=== PATIENT | female | born 1970 | race Hispanic/Latino ===

== ENCOUNTER 2018-11-21 23:25 | Inpatient (IN) | payer SELFPAY ==
[2018-11-22] MEDS ORDERED: MORPHINE 2 MG/ML SYR ONE (01:04)
[2018-11-22] MEDS ORDERED: ONDANSETRON 4 MG/2 ML VIAL ONE ×3 (01:04→03:06)
[2018-11-22] MEDS ORDERED: NA CHLORIDE 0.9% 1,000 ML ONE ×2 (01:04→03:17)
[2018-11-22] MEDS ORDERED: FAMOTIDINE 20 MG/2 ML VIAL IV ONE (01:04)
[2018-11-22 01:23] LABS: Absolute Lymphocytes (CBC) 1.2 K/uL (0.7-4.9); Absolute Monocytes 0.7 K/uL (0.1-1.3); Basophils % 0.7 % (0-1.3); Eosinophils % 0.5 % (0-4.4); Hematocrit 35.6 % (36.0-45.0); Lymphocytes % 13.6 % (15.3-44.8); MPV 11.8 fL (7.6-11.3); Monocytes % 7.9 % (3.3-12.3); RBC Red Blood Cell Count 3.88 M/uL (3.86-4.86)
[2018-11-22 01:24] LABS: Protime INR 0.9
[2018-11-22] MEDS ORDERED: PROMETHAZINE 25 MG/ML VIAL ONE (01:35)
[2018-11-22 02:01] LABS: ALT/SGPT 17 U/L (12-78); AST/SGOT 9 U/L (15-37); Albumin 2.8 g/dL (3.4-5.0); Alkaline Phosphatase 175 U/L (45-117); BUN Blood Urea Nitrogen 28 mg/dL (7-18); Bicarbonate 24 mmol/L (21-32); Bilirubin Direct < 0.1 mg/dL (0-0.2); Bilirubin Total 0.3 mg/dL (0.2-1.0); Lipase 308 U/L (73-393); Magnesium 2.4 mg/dL (1.8-2.4); Protein, Total 7.2 g/dL (6.4-8.2); Sodium Level 124 mmol/L (136-145); Troponin (Emerg Dept Use Only) 0.02 ng/mL (0.0-0.045)
[2018-11-22 02:02] LABS: Glucose Level 1040 mg/dL (74-106)
[2018-11-22] MEDS ORDERED: INSULIN -REGULAR HUMAN 50 UNIT/0.5 ML ML ONE ×2 (02:51→03:57)
[2018-11-22 03:06] LABS: Arterial Blood Carboxyhemoglob 1.1 % (0-1.5); Blood Gas Oxyhemoglobin 93.8 % (94-97); Blood O2 Saturation 95.9 % (92-98.5)
--- NOTE | 2018-11-22 03:19 | EDPHYS ---
Physician Documentation [facility] Name: Shelley Azul Age: 48 yrs Sex: Female : 1970 Arrival Date: 11/21/2018 Time: 23:26 Bed 19 Private MD: ED Physician Eloy Isabel HPI: 11/22 00:55 This 48 yrs old Female presents to ER via Ambulatory with complaints of cp Nausea/Vomiting. 00:55 The patient presents to the emergency department with nausea, with "dry heaves", cp vomiting, that is intermittent. 00:55 Onset: The symptoms/episode began/occurred 3 day(s) ago. cp 00:55 Associated signs and symptoms: Pertinent positives: abdominal pain, Pertinent cp negatives: constipation, diarrhea, fever, GI bleeding. 00:55 Possible causes: unknown. Severity of symptoms: in the emergency department the cp symptoms are unchanged despite home interventions. [employer]GE[employer]: 11/21 23:43 LMP 11/21/2018 jd3 Historical: - Allergies: 23:42 No Known Allergies; jd3 - Home Meds: 23:42 hydrochlorothiazide 25 mg Oral tab 1 tab once daily [Active]; Metoprolol Tartrate Oral jd3 [Active]; metformin 1,000 mg oral tab 2 times per day [Active]; - PMHx: 23:42 Anemia; Anxiety; Diabetes - NIDDM; Hypertension; jd3 - PSHx: 23:42 None; jd3 - Immunization history:: Adult Immunizations unknown. - Social history:: Smoking status: Patient/guardian denies using tobacco. - Ebola Screening: : Patient negative for fever greater than or equal to 101.5 degrees Fahrenheit, and additional compatible Ebola Virus Disease symptoms. ROS: 11/22 01:00 Constitutional: Positive for poor PO intake, Negative for body aches, chills, fever. cp 01:00 Eyes: Negative for injury, pain, redness, and discharge. cp 01:00 ENT: Negative for drainage from ear(s), ear pain, sore throat, difficulty swallowing, difficulty handling secretions. 01:00 Neck: Negative for pain with movement, pain at rest, stiffness. 01:00 Cardiovascular: Negative for chest pain, edema. 01:00 Respiratory: Negative for cough, shortness of breath, wheezing. 01:00 Abdomen/GI: Positive for abdominal pain, nausea and vomiting, anorexia, Negative for diarrhea, constipation, black/tarry stool, rectal bleeding. 01:00 Back: Negative for pain at rest, pain with movement. 01:00 : Negative for urinary symptoms, vaginal bleeding. 01:00 Skin: Negative for rash. 01:00 Neuro: Negative for altered mental status, dizziness, headache, syncope, weakness. 01:00 All other systems are negative. Exam: 01:05 Constitutional: The patient appears in no acute distress, alert, awake, cp non-diaphoretic, non-toxic, well developed, well nourished, uncomfortable. 01:05 Head/Face: Normocephalic, atraumatic. cp 01:05 Eyes: Periorbital structures: appear normal, Conjunctiva: normal, no exudate, no injection, Sclera: no appreciated abnormality, Lids and lashes: appear normal, bilaterally. 01:05 ENT: External ear(s): are unremarkable, Nose: is normal, Mouth: Lips: moist, Oral mucosa: moist, Posterior pharynx: Airway: no evidence of obstruction, patent, Tonsils: are normal in appearance, Uvula: midline, swelling, is not appreciated, erythema, is not appreciated, exudate, is not appreciated. 01:05 Neck: ROM/movement: is normal, is supple, without pain, no range of motions limitations, no meningismus, no nuchal rigidity. 01:05 Chest/axilla: Inspection: normal, Palpation: is normal, no crepitus, no tenderness. 01:05 Cardiovascular: Rate: tachycardic, Rhythm: regular, Edema: is not appreciated, JVD: is not appreciated. 01:05 Respiratory: the patient does not display signs of respiratory distress, Respirations: normal, no use of accessory muscles, no retractions, no splinting, no tachypnea, labored breathing, is not present, Breath sounds: are clear throughout, no decreased breath sounds, no stridor, no wheezing. 01:05 Abdomen/GI: Inspection: abdomen appears normal, Bowel sounds: active, all quadrants, Palpation: soft, in all quadrants, moderate abdominal tenderness, in the epigastric area, right upper quadrant and left upper quadrant, rebound tenderness, is not appreciated, involuntary guarding, is not appreciated. 01:05 Back: pain, is absent, ROM is normal. 01:05 Skin: cellulitis, is not appreciated, no rash present. 01:05 Neuro: Orientation: to person, place \\T\\ time. Mentation: is normal, Cerebellar function: is grossly normal, Motor: moves all fours, strength is normal, Sensation: is normal. 01:55 ECG was reviewed by the Attending Physician. cp Vital Signs: 11/21 23:42 BP 162 / 94; Pulse 107; Resp 17 S; Temp 98.2(TE); Pulse Ox 98% on R/A; Weight 81.65 kg jd3 (R); Height 5 ft. 2 in. (157.48 cm) (R); Pain 9/10; 11/22 02:00 BP 148 / 80; Pulse 92; Resp 18; Pulse Ox 96% on R/A; Pain 7/10; ed1 04:30 BP 146 / 83; Pulse 98; Resp 18; Temp 97.9(O); Pulse Ox 98% on R/A; Pain 6/10; ed1 05:02 BP 127 / 83; Pulse 84; Resp 22; Temp 97.9(O); Pulse Ox 100% on R/A; Pain 0/10; ed1 04 23:42 Body Mass Index 32.92 (81.65 kg, 157.48 cm) jd3 MDM: 00:33 Patient medically screened. cp 01:00 Differential diagnosis: gastritis, pancreatitis, appendicitis, diverticulitis, viral cp gastroenteritis, gastroenteritis. 03:00 Data reviewed: vital signs, nurses notes, lab test result(s), EKG, radiologic studies, cp plain films, I have discussed the patient's presentation/case with the attending Emergency Department Physician; and as a result, I will admit patient. 03:00 Test interpretation: by ED physician or midlevel provider: ECG, plain radiologic cp studies. Response to treatment: the patient's symptoms have mildly improved after treatment. 11/22 00:45 Order name: Basic Metabolic Panel; Complete Time: 02:04 cp 11/22 02:04 Interpretation: Normal except: NA 124; CL 86; GLUC 1040; BUN 28; CRE 2.21; GFR 24. cp 11/22 00:45 Order name: CBC with Diff; Complete Time: 01:34 cp 11/22 01:34 Interpretation: Normal except: HGB 11.6; HCT 35.6; MCV 91.8; MPV 11.8; VICK% 77.3; LYM% cp 13.6. 04 00:45 Order name: LFT's; Complete Time: 02:04 cp 11/22 00:45 Order name: Magnesium; Complete Time: 02:04 cp 11/22 00:45 Order name: PT-INR; Complete Time: 01:34 cp 11/22 00:45 Order name: Troponin (emerg Dept Use Only); Complete Time: 02:04 cp 11/22 00:45 Order name: Lipase; Complete Time: 02:04 cp 11/22 02:05 Order name: Urine Microscopic Only; Complete Time: 05:42 cp 11/22 02:17 Order name: ABG; Complete Time: 03:14 cp 11/22 03:22 Order name: BMP; Complete Time: 05:42 cp 11/22 05:43 Interpretation: Normal except: NA 129; CL 94; GLUC 912; BUN 27; CRE 1.96; GFR 27; CA cp 8.3. 11/22 03:22 Order name: Ketone, Serum; Complete Time: 05:42 cp 11/22 05:43 Interpretation: Within normal limits. cp 04 04:35 Order name: Urine Dipstick--Ancillary (enter results); Complete Time: 05:42 cm6 11/22 04:35 Order name: Urine --Ancillary (enter results); Complete Time: 05:42 cm6 11/22 04:51 Order name: Basic Metabolic Panel; Complete Time: 01:00 ed1 11/22 00:45 Order name: XRAY Chest (1 view); Complete Time: 01:00 cp 11/22 02:10 Order name: CT Abd/Pelvis - Without Cont: no oral contrast; Complete Time: 01:00 cp 11/22 05:34 Order name: Glucose, Ancillary Testing; Complete Time: 05:42 EDMS 11/22 05:34 Order name: Glucose, Ancillary Testing; Complete Time: 05:42 EDMS 11/22 00:45 Order name: EKG; Complete Time: 00:46 cp 11/22 00:45 Order name: Cardiac monitoring; Complete Time: 00:49 cp 11/22 00:45 Order name: EKG - Nurse/Tech; Complete Time: 03:55 cp 04/05 00:45 Order name: IV Saline Lock; Complete Time: 00:49 cp 04/05 00:45 Order name: Labs collected and sent; Complete Time: 00:49 cp 0405 00:45 Order name: O2 Per Protocol; Complete Time: 00:49 cp 04 00:45 Order name: O2 Sat Monitoring; Complete Time: 00:49 cp 04 00:45 Order name: Accucheck Blood Glucose; Complete Time: 03:55 cp 0405 02:05 Order name: Urine Test (obtain specimen); Complete Time: 04:32 cp 04 02:05 Order name: Urine Dipstick-Ancillary (obtain specimen); Complete Time: 04:32 cp 04 02:05 Order name: Cath; Complete Time: 02:10 cp EC:55 Rate is 91 beats/min. Rhythm is regular. IN interval is normal. QRS interval is normal. cp QT interval is normal. T waves are Inverted in leads I, II, aVL, V6. Interpreted by me. Reviewed by me. Administered Medications: 01:09 Drug: Zofran 4 mg Route: IVP; Site: right antecubital; ed1 01:25 Follow up: Response: No adverse reaction; Nausea unchanged ed1 01:09 Drug: Pepcid 20 mg Route: IVP; Site: right antecubital; ed1 01:57 Follow up: Response: No adverse reaction ed1 01:10 Drug: NS 0.9% 1000 ml Route: IV; Rate: 1 bolus; Site: right antecubital; ed1 03:41 Follow up: IV Status: Completed infusion; IV Intake: 1000ml ed1 01:10 Drug: morphine 2 mg Route: IVP; Site: right antecubital; ed1 01:58 Follow up: Response: No adverse reaction; Pain is decreased ed1 01:26 Drug: Phenergan 25 mg {Note: Placed in IV fluids.} Route: IVP; Site: right antecubital; ed1 01:58 Follow up: Response: No adverse reaction; Nausea is decreased ed1 01:27 Drug: Zofran 4 mg Route: IVP; Site: right antecubital; ed1 01:58 Follow up: Response: No adverse reaction; Nausea is decreased ed1 02:41 Drug: Insulin Regular Human 10 units {Co-Signature: rr5 (Js Mendez RN).} Route: ed1 IVP; Site: left antecubital; 04:32 Follow up: Response: No adverse reaction; Blood sugar is lowered ed1 02:58 Drug: Zofran 4 mg Route: IVP; Site: left antecubital; rr5 04:12 Follow up: Response: No adverse reaction; Nausea unchanged ed1 03:07 Drug: NS 0.9% 1000 ml Route: IV; Rate: 1 bolus; Site: right antecubital; rr5 05:01 Follow up: IV Status: Completed infusion; IV Intake: 1000ml ed1 03:53 Drug: Insulin Regular Human 10 units {Co-Signature: rr5 (Js Mendez RN).} Route: ed1 IVP; Site: right antecubital; 04:27 Drug: Insulin Drip - (Insulin Regular Human 100 units, NS 0.9% 100 ml) {Co-Signature: ed1 rr5 (Js Mendez RN).} Route: IV; Rate: 8 units/hr; Site: right antecubital; 05:22 Follow up: IV Status: Infusion continued upon admission ed1 05:00 Drug: NS 0.9% 1000 ml Route: IV; Rate: 150 ml/hr; Site: right antecubital; ed1 05:22 Follow up: IV Status: Infusion continued upon admission ed1 Point of Care Testing: Blood Glucose: 01:05 Blood Glucose: High (>450 mg/dL); ed1 01:05 Labs sent at 0049 ed1 Ranges: Critical Glucose Levels:Adult <50 mg/dl or >400 mg/dl <40 mg/dl or >180 mg/dl Disposition: 11/22/18 03:18 Hospitalization ordered by Mishel Gallegos for Inpatient Admission. Preliminary diagnosis are Diabetes mellitus due to underlying condition with ketoacidosis, Nausea and vomiting, Acute kidney failure. - Bed requested for Intensive Care Unit. - Status is Inpatient Admission. ed1 - Condition is Stable. - Problem is new. - Symptoms have improved. UTI on Admission? No Addendum: 11/26/2018 11:46 Co-signature as Attending Physician, Eloy Isabel MD. m a2 Signatures: Dispatcher [employer] EDNY Angle Pang RN RN Mimi Tim RN RN ed1 Brody Henderson PA PA cp Garcia, Cindy, RN RN cg Shaheen Griffin, RN RN jd3 Eloy Isabel MD MD sd2 Js Mendez RN RN rr5 Js Mendez RN rr5 Corrections: (The following items were deleted from the chart) 11/22 05:00 03:18 Hospitalization Ordered by Mishel Gallegos MD for Inpatient Admission. Preliminary cg diagnosis is Diabetes mellitus due to underlying condition with ketoacidosis; Nausea and vomiting; Acute kidney failure. Bed requested for Intensive Care Unit. Status is Inpatient Admission. Condition is Stable. Problem is new. Symptoms have improved. UTI on Admission? No. cp 05:43 05:42 Normal except: NA 129; CL 94; GLUC 912; BUN 27; CRE 1.96; GFR 27. cp cp 06:00 05:00 11/22/2018 03:18 Hospitalization Ordered by Mishel Gallegos MD for Inpatient ed1 Admission. Preliminary diagnosis is Diabetes mellitus due to underlying condition with ketoacidosis; Nausea and vomiting; Acute kidney failure. Bed requested for Intensive Care Unit. Status is Inpatient Admission. Condition is Stable. Problem is new. Symptoms have improved. UTI on Admission? No. cg
--- NOTE | 2018-11-22 03:19 | ER ---
Nurse's Notes [facility] Name: Shelley Azul Age: 48 yrs Sex: Female : 1970 Arrival Date: 11/21/2018 Time: 23:26 Bed 19 Private MD: Diagnosis: Diabetes mellitus due to underlying condition with ketoacidosis;Nausea and vomiting;Acute kidney failure Presentation: 11/21 23:39 Presenting complaint: Patient states: "stomach pain and throwing up for 2 days.". jd3 Transition of care: patient was not received from another setting of care. Onset of symptoms was November 21, 2018. Risk Assessment: Do you want to hurt yourself or someone else? Patient reports no desire to harm self or others. Initial Sepsis Screen: Does the patient meet any 2 criteria? No. Patient's initial sepsis screen is negative. Does the patient have a suspected source of infection? No. Patient's initial sepsis screen is negative. Care prior to arrival: None. 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 - Social history:: Smoking status: Patient/guardian denies using tobacco. - Ebola Screening: : Patient negative for fever greater than or equal to 101.5 degrees Fahrenheit, and additional compatible Ebola Virus Disease symptoms. Screenin/05 00:15 Abuse screen: Denies threats or abuse. Denies injuries from another. Nutritional ed1 screening: No deficits noted. Tuberculosis screening: No symptoms or risk factors identified. Fall Risk None identified. Assessment: 00:15 General: Appears uncomfortable, Behavior is uncooperative. Pain: Complains of pain in ed1 abdomen Pain does not radiate. Pain currently is 9 out of 10 on a pain scale. Quality of pain is described as sharp, Pain began 4 hours ago. Is continuous. Neuro: Level of Consciousness is awake, alert, obeys commands, Oriented to person, place, time, situation. Cardiovascular: Denies chest pain, Heart tones S1 S2 present. Respiratory: Airway is patent Respiratory effort is even, unlabored, Respiratory pattern is regular, symmetrical, Breath sounds are clear bilaterally. GI: Abdomen is non-distended, Bowel sounds present X 4 quads. Abd is soft and non tender X 4 quads. Reports nausea, vomiting, Patient currently denies diarrhea. : No signs and/or symptoms were reported regarding the genitourinary system. EENT: Oral mucosa is dry. Derm: Skin is intact, is healthy with good turgor, Skin is dry, Skin is normal, Skin temperature is warm. Musculoskeletal: Circulation, motion, and sensation intact. Range of motion: intact in all extremities. 01:27 GI: Pt is actively vomiting undigested food. ed1 02:00 Reassessment: Patient appears in no apparent distress at this time. No changes from ed1 previously documented assessment. Patient and/or family updated on plan of care and expected duration. Pain level reassessed. Patient is alert, oriented x 3, equal unlabored respirations, skin warm/dry/pink. Patient states symptoms have not improved. 04:30 Reassessment: No changes from previously documented assessment. Patient and/or family ed1 updated on plan of care and expected duration. Pain level reassessed. Patient is alert, oriented x 3, equal unlabored respirations, skin warm/dry/pink. Patient states symptoms have not improved. GI: Reports nausea, vomiting. Vital Signs: 11/21 23:42 BP 162 / 94; Pulse 107; Resp 17 S; Temp 98.2(TE); Pulse Ox 98% on R/A; Weight 81.65 kg jd3 (R); Height 5 ft. 2 in. (157.48 cm) (R); Pain 9/10; 11/22 02:00 BP 148 / 80; Pulse 92; Resp 18; Pulse Ox 96% on R/A; Pain 7/10; ed1 04:30 BP 146 / 83; Pulse 98; Resp 18; Temp 97.9(O); Pulse Ox 98% on R/A; Pain 6/10; ed1 05:02 BP 127 / 83; Pulse 84; Resp 22; Temp 97.9(O); Pulse Ox 100% on R/A; Pain 0/10; ed1 04 23:42 Body Mass Index 32.92 (81.65 kg, 157.48 cm) jd3 ED Course: 11/21 23:26 Patient arrived in ED. am2 23:40 Triage completed. jd3 23:43 Arm band placed on. jd3 04 00:15 Patient has correct armband on for positive identification. Placed in gown. Bed in low ed1 position. Call light in reach. Adult w/ patient. property assessment monitor on. Pulse ox on. NIBP on. 00:17 Mimi Tim, TRAVIS is Primary Nurse. ed1 00:33 Brody Henderson PA is PHCP. cp 00:33 Eloy Isabel MD is Attending Physician. cp 00:49 Inserted saline lock: 20 gauge in right antecubital area, using aseptic technique. ed1 Blood collected. 01:05 X-ray completed. Portable x-ray completed in exam room. Patient tolerated procedure kw well. 01:06 XRAY Chest (1 view) In Process Unspecified. EDMS 02:01 Notified Nurse Practitioner and/or Physician Nail Welter of a critical lab result(s), fc Glucose 1040. 02:41 Inserted saline lock: 22 gauge in left antecubital area, using aseptic technique. ed1 03:16 Mishel Gallegos MD is Hospitalizing Provider. cp 04:31 Awaiting bed assignment. ed1 04:31 CT completed. Patient tolerated procedure well. Patient moved to CT via stretcher. Patient moved back from CT. 04:37 CT Abd/Pelvis - Without Cont: no oral contrast In Process Unspecified. EDMS 05:01 IV discontinued, intact, bleeding controlled, Pressure dressing applied, left a/c. ed1 05:15 Inserted saline lock: 22 gauge in right wrist, using aseptic technique. ed1 05:21 No provider procedures requiring assistance completed. ed1 Administered Medications: 01:09 Drug: Zofran 4 mg Route: IVP; Site: right antecubital; ed1 01:25 Follow up: Response: No adverse reaction; Nausea unchanged ed1 01:09 Drug: Pepcid 20 mg Route: IVP; Site: right antecubital; ed1 01:57 Follow up: Response: No adverse reaction ed1 01:10 Drug: NS 0.9% 1000 ml Route: IV; Rate: 1 bolus; Site: right antecubital; ed1 03:41 Follow up: IV Status: Completed infusion; IV Intake: 1000ml ed1 01:10 Drug: morphine 2 mg Route: IVP; Site: right antecubital; ed1 01:58 Follow up: Response: No adverse reaction; Pain is decreased ed1 01:26 Drug: Phenergan 25 mg {Note: Placed in IV fluids.} Route: IVP; Site: right antecubital; ed1 01:58 Follow up: Response: No adverse reaction; Nausea is decreased ed1 01:27 Drug: Zofran 4 mg Route: IVP; Site: right antecubital; ed1 01:58 Follow up: Response: No adverse reaction; Nausea is decreased ed1 02:41 Drug: Insulin Regular Human 10 units {Co-Signature: rr5 (Js Mendez RN).} Route: ed1 IVP; Site: left antecubital; 04:32 Follow up: Response: No adverse reaction; Blood sugar is lowered ed1 02:58 Drug: Zofran 4 mg Route: IVP; Site: left antecubital; rr5 04:12 Follow up: Response: No adverse reaction; Nausea unchanged ed1 03:07 Drug: NS 0.9% 1000 ml Route: IV; Rate: 1 bolus; Site: right antecubital; rr5 05:01 Follow up: IV Status: Completed infusion; IV Intake: 1000ml ed1 03:53 Drug: Insulin Regular Human 10 units {Co-Signature: rr5 (Js Mendez RN).} Route: ed1 IVP; Site: right antecubital; 04:27 Drug: Insulin Drip - (Insulin Regular Human 100 units, NS 0.9% 100 ml) {Co-Signature: ed1 rr5 (Js Mendez RN).} Route: IV; Rate: 8 units/hr; Site: right antecubital; 05:22 Follow up: IV Status: Infusion continued upon admission ed1 05:00 Drug: NS 0.9% 1000 ml Route: IV; Rate: 150 ml/hr; Site: right antecubital; ed1 05:22 Follow up: IV Status: Infusion continued upon admission ed1 Point of Care Testing: Blood Glucose: 01:05 Blood Glucose: High (>450 mg/dL); ed1 01:05 Labs sent at 0049 ed1 Ranges: Intake: 03:41 IV: 1000ml; Total: 1000ml. ed1 05:01 IV: 1000ml; Total: 2000ml. ed1 Outcome: 03:18 Decision to Hospitalize by Provider. cp 06:00 Admitted to ICU accompanied by nurse, accompanied by tech, family with patient, via ed1 stretcher, room 1, with chart. 06:00 Condition: good 06:00 Discharge instructions given to patient, family, Instructed on the need for admit, Demonstrated understanding of instructions. 06:00 Patient left the ED. ed1 Signatures: Dispatcher [employer] EDMS Ned Rivera Felicia, RN RN Mimi Tim RN RN ed1 Greta Fink Corey, PA PA cp Moreno, Amanda am2 Davies, Jonathon, RN RN jJs Holman RN RN rr5 Js Mendez RN rr5
[2018-11-22] MEDS ORDERED: NA CHLORIDE 0.9% 100 ML IV ONE (03:58)
[2018-11-22 04:07] LABS: BUN Blood Urea Nitrogen 27 mg/dL (7-18); Bicarbonate 24 mmol/L (21-32); Glucose Level 912 mg/dL (74-106); Sodium Level 129 mmol/L (136-145)
[2018-11-22 04:47] LABS: Urine Blood 2+ (NEG); Urine Glucose 2+ (NEG); Urine Protein 2+ (NEG)
[2018-11-22 04:56] LABS: Urine Bacteria <20 /HPF (<20); Urine Culture Reflex Order NOT NEEDED
[2018-11-22] MEDS ORDERED: GLUCAGON 1 MG/VIAL IM PRN ×2 (05:17→17:16)
[2018-11-22] MEDS ORDERED: INSULIN -REGULAR HUMAN 50 UNIT/0.5 ML ML IV SCH (05:17)
[2018-11-22] MEDS: NA CHLORIDE 0.9% 1,000 ML IV SCH ×3 (05:17→16:41)
[2018-11-22] MEDS ORDERED: D50W 25 GM/50 ML SYRINGE IV PRN ×2 (05:17→17:16)
--- NOTE | 2018-11-22 05:23 | P.HP ---
Certification for Inpatient Patient admitted to: Inpatient With expected LOS: >2 Midnights Practitioner: I am a practitioner with admitting privileges, knowledge of patient current condition, hospital course, and medical plan of care. Services: Services provided to patient in accordance with Admission requirements found in Title 42 Section 412.3 of the Code of Federal Regulations Patient History Date of Service: 11/22/18 Reason for admission: hyperosmolar hyperglycemic syndrome History of Present Illness: Mr Azul is a 48 years with history of DM II, HTN, who start with nausea and vomiting about 1 week ago. She has had also diffuse abdominal pain. She denied diarrhea, fever or chills. She has not been taking her diabetic medication in the last week either. She has been more thirsty and had more frequent urination in the last week as well. She came to ED because her vomiting are getting worse. Lab work remarkable for normal WBC, abnormal renal function, and significant hyperglycemia 1040 mg/dl. ABG shows normal OH and bicarbonate level. CT abd/pelvis shows no acute abnormalities. Clinical presentation consistent with hyperosmolar hyperglycemic syndrome. Allergies No Known Allergies Allergy (Verified 08/11/17 04:55) Home medications list reviewed: Yes Home Medications: Metformin HCl [Metformin ER Osmotic] 1,000 mg PO BID 06/14/16 cloNIDine HCl [Clonidine HCl] 0.1 mg PO BEDTIME 08/11/17 hydroCHLOROthiazide [Hydrochlorothiazide] 25 mg PO DAILY 08/11/17 Lisinopril [Prinivil*] 10 mg PO DAILY #30 tab 08/12/17 Metoprolol Tartrate [Lopressor*] 50 mg PO BID #30 tab 08/12/17 - Past Medical/Surgical History Diabetic: Yes -: HTN -: DM2 -: Anemia - Family History Family History: Reviewed- Non-Contributory - Family History Mother -: Hypertension, Diabetes Father -: Kidney disease - Social History Smoking Status: Never smoker Alcohol use: No CD- Drugs: No Caffeine use: No Place of Residence: Home Review of Systems 10-point ROS is otherwise unremarkable Physical Examination - Physical Exam General: Alert, In no apparent distress HEENT: Atraumatic, PERRLA, Mucous membr. moist/pink, EOMI, Sclerae nonicteric Neck: Supple, 2+ carotid pulse no bruit, No LAD, Without JVD or thyroid abnormality Respiratory: Clear to auscultation bilaterally, Normal air movement Cardiovascular: Regular rate/rhythm, Normal S1 S2 Gastrointestinal: Normal bowel sounds, Tenderness (diffuse tenderness to palpation) Musculoskeletal: No tenderness Integumentary: No rashes Neurological: Normal speech, Normal strength at 5/5 x4 extr, Normal tone, Normal affect Lymphatics: No axilla or inguinal lymphadenopathy - Studies Laboratory Data (last 24 hrs) 11/22/18 03:38: Sodium 129 L, Potassium 4.0, BUN 27 H, Creatinine 1.96 H, Glucose 912 H* 11/22/18 00:55: PT 10.7, INR 0.90 11/22/18 00:55: WBC 9.1, Hgb 11.6 L, Hct 35.6 L, Plt Count 326 11/22/18 00:55: Sodium 124 L, Potassium 4.0, BUN 28 H, Creatinine 2.21 H, Glucose 1040 H*, Magnesium 2.4, Total Bilirubin 0.3, AST 9 L, ALT 17, Alkaline Phosphatase 175 H, Lipase 308 Assessment and Plan - Problems (Diagnosis) (1) HTN (hypertension) Current Visit: Yes Status: Acute Qualifiers: Hypertension type: essential hypertension Qualified Code(s): I10 - Essential (primary) hypertension (2) Hyperosmolar syndrome Current Visit: Yes Status: Acute (3) Diabetes mellitus Current Visit: Yes Status: Acute Qualifiers: Diabetes mellitus type: type 2 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 Will continue with IV fluid, insulin drip. Hgb A1c pending. - Advance Directives Does patient have a Living Will: No Does patient have a Durable POA for Healthcare: No - Code Status/Comfort Care Code Status Assessed: Yes Code Status: Full Code
[2018-11-22 06:17] VITALS: BMI 32.8
[2018-11-22] MEDS: PROMETHAZINE 25 MG/ML VIAL IV PRN ×4 (07:07→23:39)
--- NOTE | 2018-11-22 08:13 | RAD REPORT ---
EXAM DESCRIPTION: Phong Single View11/22/2018 1:06 am CLINICAL HISTORY: Abdominal pain COMPARISON: September 2018 FINDINGS: The lungs appear clear of acute infiltrate. The heart is normal size IMPRESSION: No acute abnormalities displayed
[2018-11-22] MEDS ORDERED: HEPARIN 5000 UNIT/ML 1 ML VIAL SQ SCH (09:00)
[2018-11-22 09:09] LABS: Potassium 3.2 mmol/L (3.5-5.1)
[2018-11-22] MEDS ORDERED: SODIUM CHLORIDE 0.9% 10ML INJ IV PRN (09:46)
--- NOTE | 2018-11-22 09:58 | P.PN ---
Subjective Date of Service: 11/22/18 Primary Care Provider: Madyson Ho Chief Complaint: hyperosmolar hyperglycemic syndrome Subjective: Other (Patient reports improvement. No more significant nausea or vomiting. Patient still fatigued.) Physical Examination - Vital Signs Temperature: 97.9 F Blood Pressure: 105/63 Pulse: 99 Respirations: 14 Pulse Ox (%): 98 - Physical Exam General: Alert, In no apparent distress, Oriented x3, Cooperative HEENT: Atraumatic, Other (Dry mucous membranes) Neck: Supple Respiratory: Clear to auscultation bilaterally, Normal air movement Cardiovascular: Normal pulses, Regular rate/rhythm Gastrointestinal: Normal bowel sounds, Soft and benign, Non-distended, No tenderness, No masses, No rebound, No guarding Musculoskeletal: No erythema, No tenderness, No warmth Integumentary: No tenderness/swelling, No erythema, No warmth, No cyanosis Neurological: Normal speech, Normal strength at 5/5 x4 extr, Normal tone, Normal affect - Studies Laboratory Data (last 24 hrs) 11/22/18 03:38: Sodium 129 L, Potassium 4.0, BUN 27 H, Creatinine 1.96 H, Glucose 912 H* 11/22/18 00:55: PT 10.7, INR 0.90 11/22/18 00:55: WBC 9.1, Hgb 11.6 L, Hct 35.6 L, Plt Count 326 11/22/18 00:55: Sodium 124 L, Potassium 4.0, BUN 28 H, Creatinine 2.21 H, Glucose 1040 H*, Magnesium 2.4, Total Bilirubin 0.3, AST 9 L, ALT 17, Alkaline Phosphatase 175 H, Lipase 308 Medications List Reviewed: Yes Assessment & Plan Discharge Plan: Home Plan to discharge in: Greater than 2 days Physician Review Additional Text: Impression: Hyperosmolar nonketotic hyperglycemia with diabetes mellitus type 2 uncontrolled Suspect acute on chronic renal disease, stage 4 secondary to Nausea and vomiting with dehydration with possible kidney injury related to medication versus gastroenteritis Hyponatremia Hypertension Fatty liver Suspect GERD Obesity, BMI 32.8 Uterine fibroids Plan: Hyperosmolar nonketotic hyperglycemia with diabetes mellitus type 2 uncontrolled : Patient remains in ICU. Continue insulin drip. Once blood sugars better controlled then will transition to basal insulin. Will check A1c. Continue to monitor closely. Will monitor lab closely. Will continue to reassess. Suspect acute on chronic renal disease, stage 4 secondary to Nausea and vomiting with dehydration with possible kidney injury related to medication versus gastroenteritis: Patient likely with underlying gastroenteritis. She has been taking hydrochlorothiazide and possible NSAIDs. Will start IV Protonix. Will check renal ultrasound. Continue IV fluids. Patient may have underlying chronic renal disease in relation to her hypertension and diabetes. Will consult Nephrology to further evaluate. Hyponatremia: Likely from falling depletion. Continue aggressive IV fluids. Will monitor electrolytes. Hypertension: Will hold her blood pressure medication at this time. Will provide IV medication as needed. Will discontinue hydrochlorothiazide due to suspected renal injury. Fatty liver: CT scan revealed fatty liver. Will monitor closely. Will educate on fatty liver. Suspect GERD: Will start Protonix. Obesity, BMI 32.8: Will address lifestyle modification education. Uterine fibroids: CT scan revealed uterine fibroids. This can be further evaluated as an outpatient by gynecology. Time Spent Managing Pts Care (In Minutes): 55
[2018-11-22] MEDS: POTASSIUM CL 40 MEQ in NA CHLORIDE 0.9% 500 ML IV SCH ×2 (10:20)
--- NOTE | 2018-11-22 11:02 | RAD REPORT ---
EXAM DESCRIPTION: CT - Abdomen Pelvis Wo Contrast - 11/22/2018 5:11 am CLINICAL HISTORY: 48-year-old female with nausea and vomiting and epigastric pain for two days TECHNIQUE: Axial CT imaging of the abdomen and pelvis was performed. Sagittal and coronal reconstr ucted images were then performed. The CT study is performed according to ALARA (as low as reasonably achievable) or ALARA/IMAGE GENTLY, with automatic adjustment of mA and/or kV according to patient siz e. Performed on: 11/22/2018 at 4:00 AM COMPARISON: None. FINDINGS: Lung bases: The lung bases are clear. Liver: The liver is top normal in size and measures 18 cm in craniocaudal dimension. The liver is sli ghtly heterogeneous in attenuation which can be seen with fatty infiltration. No focal hepatic abnorm alities are appreciated on this unenhanced scan. Spleen: The spleen is normal is size, configuration and attenuation. No focal splenic abnormalities a re appreciated on this unenhanced scan. Gallbladder and bile duct: The gallbladder is surgically absent. There is very mild dilatation of t he common bile duct likely physiologic in nature following a cholecystectomy. Pancreas: The pancreas is grossly normal in size and configuration. Adrenal Glands: The adrenal glands are normal in size and configuration. Kidneys: The kidneys are normal in size and configuration. There is no evidence of hydronephrosis. Th ere is punctate bilateral nonobstructing nephrolithiasis. No focal renal abnormalities are identified . Stomach: The stomach is grossly normal. There is no definite hiatal hernia. Bowel: The bowel gas pattern is non specific and non obstructive. Appendix: The appendix is normal. Free air: There is no evidence of free air. Free fluid: There is no evidence of free fluid. Vasculature: The aorta is normal in caliber and contour. The inferior vena cava is grossly unremarkab le. Lymphadenopathy: No pathologic lymphadenopathy is identified. Bladder: The bladder is well distended and smooth in contour. Reproductive: The uterus is grossly within normal limits. There are a few coarse calcifications withi n the uterus which may reflect calcified uterine fibroids. Bones: No acute osseous abnormalities are identified. Soft tissues: No focal soft tissue abnormalities are identified. IMPRESSION: 1. No evidence of acute intra-abdominal or intrapelvic pathology. There is no evidence o f bowel obstruction 2. Punctate bilateral nonobstructing renal calculi. 3. Borderline hepatomegaly and heterogeneous attenuation of the liver commonly due to fatty infiltrat ion. 4. Remote cholecystectomy. 5. There are a couple of small coarse calcifications in the uterus likely related to calcified uterin e fibroids. Electronically signed by: Aislinn Joseph DO 11/22/2018 4:51 AM CDT Due to temporary technical issues with the PACS/Fluency reporting system, reports are being signed by the in house radiologist as a courtesy to ensure prompt reporting. The interpreting radiologist is f ully responsible for the content of the report.
[2018-11-22] MEDS: ONDANSETRON 4 MG/2 ML VIAL IV PRN ×2 (12:18→18:55)
--- NOTE | 2018-11-22 12:38 | RAD REPORT ---
EXAM DESCRIPTION: US - Renal Ultrasound-Complete - 11/22/2018 12:30 pm CLINICAL HISTORY: . Acute and chronic renal disease COMPARISON: November 22, 2018 CT FINDINGS: The right kidney measures 11 cm with a normal echotexture. The left kidney measures 10 cm with a normal echotexture. Hydronephrosis is not seen. No gross abnormality of the bladder IMPRESSION: Unremarkable renal ultrasound.
[2018-11-22] MEDS: PANTOPRAZOLE 40 MG INJ IVP SCH (12:44)
[2018-11-22] MEDS: HYDRALAZINE HCL 20 MG/ML VIAL IV PRN ×2 (15:14→21:08)
[2018-11-22] MEDS ORDERED: INSULIN -REGULAR HUMAN 100 UNIT in NA CHLORIDE 0.9% 100 ML IV SCH ×2 (16:00→17:30)
[2018-11-22] MEDS: ENOXAPARIN 30 MG/0.3 ML SQ SCH (16:40)
[2018-11-22] MEDS ORDERED: MORPHINE 2 MG/ML SYR IV PRN (16:49)
[2018-11-22] MEDS ORDERED: METOPROLOL TARTRATE 5 MG/5 ML INJ IV STA (17:15)
--- NOTE | 2018-11-22 18:37 | RAD REPORT ---
EXAM DESCRIPTION: RAD - Abdomen 1 View (KUB) - 11/22/2018 6:22 pm CLINICAL HISTORY: Abdominal pain, vomiting COMPARISON: CT study same date FINDINGS: Bowel gas pattern is non-specific. No obstruction, free air or pneumatosis. No suspicious calcifications. No evidence for change from the earlier CT study. No significant bony findings IMPRESSION: No obstruction or free air. No acute finding from earlier imaging.
[2018-11-22] MEDS ORDERED: INSULIN GLARGINE 100 UNITS/ML SQ ONE (19:46)
--- NOTE | 2018-11-22 20:39 | P.CNS ---
Date of Consult: 11/22/18 Reason for Consult: LINDA Requesting Physician: Tramaine Castillo Primary Care Provider: [facility] Chief Complaint: hyperosmolar hyperglycemic syndrome History of Present Illness: Mrs. Azul is a 48 years with history of DM II, HTN that presented to the ER with 1 week of severe, progressive N/V with associated malaise and diffuse abdominal pain. She denied diarrhea, fever or chills. She has not been taking her diabetic medication in the last week either. She has been more thirsty and had more frequent urination in the last week as well. She came to ED because of progressive vomiting. Clinical presentation consistent with hyperosmolar hyperglycemic syndrome. 00:55 This 48 yrs old Female presents to ER via Ambulatory with complaints of cp Nausea/Vomiting. 00:55 The patient presents to the emergency department with nausea, with "dry heaves", cp vomiting, that is intermittent. 00:55 Onset: The symptoms/episode began/occurred 3 day(s) ago Allergies No Known Allergies Allergy (Verified 08/11/17 04:55) Home medications list reviewed: Yes Home Medications: Metformin HCl [Metformin ER Osmotic] 1,000 mg PO BID 06/14/16 hydroCHLOROthiazide [Hydrochlorothiazide] 25 mg PO DAILY 08/11/17 Metoprolol Tartrate [Lopressor*] 50 mg PO BID #30 tab 08/12/17 - Past Medical/Surgical History Diabetic: Yes -: anxiety -: HTN -: DM2 -: Anemia -: C section - Family History Mother Medical History: Hypertension, Diabetes Father Medical History: Kidney disease - Social History Smoking Status: Never smoker Alcohol use: No CD- Drugs: No Caffeine use: No Place of Residence: Home Review of Systems 10-point ROS is otherwise unremarkable General: Weakness, Malaise Gastrointestinal: Nausea, Vomiting, Abdominal Pain Neurological: Weakness Physical Examination Temp Pulse Resp BP Pulse Ox 98.5 F 105 H 26 H 161/63 H 98 11/22/18 16:00 11/22/18 18:00 11/22/18 18:00 11/22/18 18:00 11/22/18 18:00 General: Cooperative, Moderate distress HEENT: Atraumatic, Normocephalic Neck: Supple Respiratory: Clear to auscultation bilaterally, Normal air movement Cardiovascular: No edema, Regular rate/rhythm Gastrointestinal: Non-distended, No guarding, Tenderness Musculoskeletal: No clubbing, No contractures Integumentary: No rashes Neurological: Normal speech Laboratory Data (last 24 hrs) 11/22/18 03:38: Sodium 129 L, Potassium 4.0, BUN 27 H, Creatinine 1.96 H, Glucose 912 H* 11/22/18 00:55: PT 10.7, INR 0.90 11/22/18 00:55: WBC 9.1, Hgb 11.6 L, Hct 35.6 L, Plt Count 326 11/22/18 00:55: Sodium 124 L, Potassium 4.0, BUN 28 H, Creatinine 2.21 H, Glucose 1040 H*, Magnesium 2.4, Total Bilirubin 0.3, AST 9 L, ALT 17, Alkaline Phosphatase 175 H, Lipase 308 Imagings Data: EXAM DESCRIPTION: CT - Abdomen Pelvis Wo Contrast - 11/22/2018 5:11 am CLINICAL HISTORY: 48-year-old female with nausea and vomiting and epigastric pain for two days TECHNIQUE: Axial CT imaging of the abdomen and pelvis was performed. Sagittal and coronal reconstructed images were then performed. The CT study is performed according to ALARA (as low as reasonably achievable) or ALARA/IMAGE GENTLY, with automatic adjustment of mA and/or kV according to patient size. Performed on: 11/22/2018 at 4:00 AM COMPARISON: None. FINDINGS: Lung bases: The lung bases are clear. Liver: The liver is top normal in size and measures 18 cm in craniocaudal dimension. The liver is slightly heterogeneous in attenuation which can be seen with fatty infiltration. No focal hepatic abnormalities are appreciated on this unenhanced scan. Spleen: The spleen is normal is size, configuration and attenuation. No focal splenic abnormalities are appreciated on this unenhanced scan. Gallbladder and bile duct: The gallbladder is surgically absent. There is very mild dilatation of the common bile duct likely physiologic in nature following a cholecystectomy. Pancreas: The pancreas is grossly normal in size and configuration. Adrenal Glands: The adrenal glands are normal in size and configuration. Kidneys: The kidneys are normal in size and configuration. There is no evidence of hydronephrosis. There is punctate bilateral nonobstructing nephrolithiasis. No focal renal abnormalities are identified. Stomach: The stomach is grossly normal. There is no definite hiatal hernia. Bowel: The bowel gas pattern is non specific and non obstructive. Appendix: The appendix is normal. Free air: There is no evidence of free air. Free fluid: There is no evidence of free fluid. Vasculature: The aorta is normal in caliber and contour. The inferior vena cava is grossly unremarkable. Lymphadenopathy: No pathologic lymphadenopathy is identified. Bladder: The bladder is well distended and smooth in contour. Reproductive: The uterus is grossly within normal limits. There are a few coarse calcifications within the uterus which may reflect calcified uterine fibroids. Bones: No acute osseous abnormalities are identified. Soft tissues: No focal soft tissue abnormalities are identified. IMPRESSION: 1. No evidence of acute intra-abdominal or intrapelvic pathology. There is no evidence of bowel obstruction 2. Punctate bilateral nonobstructing renal calculi. 3. Borderline hepatomegaly and heterogeneous attenuation of the liver commonly due to fatty infiltration. 4. Remote cholecystectomy. 5. There are a couple of small coarse calcifications in the uterus likely related to calcified uterine fibroids. EXAM DESCRIPTION: US - Renal Ultrasound-Complete - 11/22/2018 12:30 pm CLINICAL HISTORY: . Acute and chronic renal disease COMPARISON: November 22, 2018 CT FINDINGS: The right kidney measures 11 cm with a normal echotexture. The left kidney measures 10 cm with a normal echotexture. Hydronephrosis is not seen. No gross abnormality of the bladder IMPRESSION: Unremarkable renal ultrasound. Conclusions/Impression: A/ LINDA likely volume depletion. CKD III with proteinuria. Hyponatremia. Hypokalemia. DM II with HHS, uncontrolled. Anemia in chronic illness. Moderate protein malnutrition. P/ Continue current POC and Medications. Aggressive IVF. Replete lytes as ordered. Insulin gtt. No NSAIDS. AM labs. Daily weight. Thank you kindly for the consultation.
[2018-11-22 20:56] LABS: Potassium 3.8 mmol/L (3.5-5.1)
[2018-11-22] MEDS ORDERED: METOCLOPRAMIDE 10 MG/2mL INJ IV SCH (21:00)
[2018-11-22] MEDS ORDERED: POTASSIUM CL SA 10 MEQ TAB PO ONE (23:17)
[2018-11-23 00:09] VITALS: O2SAT 99
[2018-11-23] MEDS: NA CHLORIDE 0.9% 1,000 ML IV SCH ×2 (00:34→08:12)
[2018-11-23] MEDS: HYDRALAZINE HCL 20 MG/ML VIAL IV PRN ×3 (04:37→20:26)
[2018-11-23] MEDS: PROMETHAZINE 25 MG/ML VIAL IV PRN ×2 (05:28→17:16)
[2018-11-23 05:59] LABS: Absolute Lymphocytes (CBC) 1.3 K/uL (0.7-4.9); Absolute Monocytes 0.9 K/uL (0.1-1.3); Absolute Neutrophil 15.9 K/uL (1.8-8.0); Basophils % 0.7 % (0-1.3); Hematocrit 32.2 % (36.0-45.0); Lymphocytes % 7.4 % (15.3-44.8); MPV 11.1 fL (7.6-11.3); Monocytes % 4.7 % (3.3-12.3)
[2018-11-23 06:09] LABS: Magnesium 2.2 mg/dL (1.8-2.4); Phosphorus 2.5 mg/dL (2.5-4.9); Potassium 4.3 mmol/L (3.5-5.1); Uric Acid 7.6 mg/dL (2.6-6.0)
[2018-11-23] MEDS ORDERED: INSULIN -REGULAR HUMAN 50 UNIT/0.5 ML ML IV ONE (06:15)
[2018-11-23] MEDS: METOPROLOL TAR 50 MG TAB PO SCH ×4 (06:22→21:37)
[2018-11-23 06:51] LABS: Blood Morphology Comment NOT SEEN (NOT SEEN); Platelet Estimate ADEQ
[2018-11-23] MEDS ORDERED: D50W 25 GM/50 ML SYRINGE IV PRN ×2 (07:24→15:17)
[2018-11-23] MEDS ORDERED: GLUCAGON 1 MG/VIAL IM PRN ×2 (07:24→15:17)
[2018-11-23] MEDS ORDERED: INSULIN -REGULAR HUMAN 50 UNIT/0.5 ML ML SQ SCH (07:30)
[2018-11-23] MEDS: PANTOPRAZOLE 40 MG INJ IVP SCH (08:09)
[2018-11-23] MEDS: INSULIN -REGULAR HUMAN 50 UNIT/0.5 ML ML SQ SCH ×4 (08:10→20:54)
--- NOTE | 2018-11-23 08:39 | P.PN ---
Subjective Date of Service: 11/23/18 Primary Care Provider: Madyson Ho Chief Complaint: hyperosmolar hyperglycemic syndrome Subjective: Improving (Patient improved since yesterday. Less nausea and vomiting. No abdominal pain.) Physical Examination - Vital Signs Temperature: 98.9 F Blood Pressure: 178/87 Pulse: 101 Respirations: 20 Pulse Ox (%): 97 - Physical Exam General: Alert, In no apparent distress, Oriented x3, Cooperative HEENT: Atraumatic Neck: Supple Respiratory: Clear to auscultation bilaterally, Normal air movement Cardiovascular: Normal pulses, Regular rate/rhythm Gastrointestinal: Normal bowel sounds, Soft and benign, Non-distended, No tenderness, No masses, No rebound, No guarding Musculoskeletal: No erythema, No tenderness, No warmth Integumentary: No tenderness/swelling, No erythema, No warmth, No cyanosis Neurological: Normal speech, Normal strength at 5/5 x4 extr, Normal tone - Studies Medications List Reviewed: Yes Assessment & Plan Discharge Plan: Home Plan to discharge in: 48 Hours Physician Review Additional Text: Impression: Hyperosmolar nonketotic hyperglycemia with diabetes mellitus type 2 uncontrolled Suspect acute on chronic renal disease, stage 4 secondary to Nausea and vomiting with dehydration with possible kidney injury related to medication versus gastroenteritis Hyponatremia Hypertension Fatty liver Suspect GERD Anemia likely of chronic disease Obesity, BMI 32.8 Uterine fibroids Plan: Hyperosmolar nonketotic hyperglycemia with diabetes mellitus type 2 uncontrolled : Patient improved. Patient has been transitioned off insulin drip. Will adjust basal insulin to Lantus 20 units subcu twice daily. Will continue aggressive sliding scale. Will continue monitor closely. A1c greater than 14. Will continue to address lifestyle modification education. Will advance diet as tolerated. If improved will transition to regular floor. Encourage ambulation. Suspect acute on chronic renal disease, stage 4 secondary to Nausea and vomiting with dehydration with possible kidney injury related to medication versus gastroenteritis: Renal function slightly improved. Continue with IV fluids. Adjust IV fluids today. Will monitor closely. Encourage ambulation. Will advance diet as tolerated. Hydrochlorothiazide and metformin have been discontinued due to renal function. Hyponatremia: Likely from volume depletion. Continue IV fluids. Hypertension: Blood pressure elevated. Hydrochlorothiazide discontinued. Patient on metoprolol. Will adjust metoprolol for better control. May need to add additional medication. Will monitor closely.. Fatty liver: CT scan revealed fatty liver. Will monitor closely. Will educate on fatty liver. Suspect GERD: Continue with Protonix. Anemia likely of chronic disease: Will check iron and B12 levels. Will monitor closely. Obesity, BMI 32.8: Will address lifestyle modification education. Uterine fibroids: CT scan revealed uterine fibroids. This can be further evaluated as an outpatient by gynecology. Time Spent Managing Pts Care (In Minutes): 55
[2018-11-23] MEDS ORDERED: INSULIN GLARGINE 100 UNITS/ML SQ SCH (09:00)
[2018-11-23] MEDS: FOLIC ACID 1 MG TABLET PO SCH (09:40)
[2018-11-23] MEDS: NACHLORIDE 0.45% 1,000 ML IV SCH ×2 (09:41→17:36)
[2018-11-23 09:57] LABS: Ferritin 61.5 ng/mL (8-388)
--- NOTE | 2018-11-23 13:43 | P.PN ---
Date of Service: 11/23/18 Vital Signs Temp Pulse Resp BP Pulse Ox 98.9 F 74 15 131/70 97 11/23/18 08:39 11/23/18 12:00 11/23/18 12:00 11/23/18 12:00 11/23/18 12:00 Medications Dextrose (Dextrose 50% Syringe) 12.5 gm IV PRN PRN; Protocol PRN Reason: HYPOGLYCEMIA Stop: 12/22/18 17:17 Enoxaparin Sodium (Lovenox 30 Mg Inj) 30 mg SQ DAILY 5 PM [facility] Stop: 12/22/18 17:01 Last Admin: 11/22/18 16:40 Dose: 30 mg Folic Acid (Folic Acid) 1 mg PO DAILY [facility] Stop: 12/23/18 09:01 Last Admin: 11/23/18 09:40 Dose: 1 mg Glucagon (Glucagen) 1 mg IM 1X PRN; Protocol PRN Reason: HYPOGLYCEMIA Stop: 12/22/18 17:17 Hydralazine HCl (Apresoline) 10 mg IV Q6HP PRN PRN Reason: Titrate to SBP (MUST DEFINE) Stop: 12/22/18 09:46 Last Admin: 11/23/18 04:37 Dose: 10 mg Sodium Chloride (Sodium Chloride 0.45%) 1,000 mls @ 125 mls/hr IV .Q8H [facility] Stop: 12/23/18 09:01 Last Admin: 11/23/18 09:41 Dose: 1,000 mls Insulin Glargine (Lantus) 20 units SQ BID [facility] Stop: 12/23/18 09:01 Last Admin: 11/23/18 08:10 Dose: 20 units Insulin Human Regular (Novolin -R) 0 unit SQ ACHS [facility]; Protocol Stop: 12/23/18 07:31 Last Admin: 11/23/18 11:23 Dose: 12 unit Metoclopramide HCl (Reglan) 10 mg IV 1X [facility] Stop: 12/22/18 21:01 Last Admin: 11/22/18 21:09 Dose: 10 mg Metoprolol Tartrate (Lopressor) 100 mg PO BID [facility] Stop: 12/23/18 09:01 Last Admin: 11/23/18 08:44 Dose: Not Given Morphine Sulfate (Morphine Sulfate) 2 mg IV Q4H PRN PRN Reason: Pain scale 5-7 (Moderate) Stop: 12/22/18 16:50 Last Admin: 11/22/18 17:01 Dose: 2 mg Ondansetron HCl (Zofran) 4 mg IV Q6HP PRN PRN Reason: NAUSEA / VOMITING Stop: 12/22/18 05:18 Last Admin: 11/22/18 18:55 Dose: 4 mg Pantoprazole Sodium (Protonix Tab) 40 mg PO DAILYAC [facility] Stop: 12/24/18 06:31 Promethazine HCl (Phenergan) 12.5 mg IV Q4H PRN PRN Reason: NAUSEA / VOMITING Stop: 12/22/18 05:18 Last Admin: 11/23/18 05:28 Dose: 12.5 mg Sodium Chloride (Normal Saline Flush) 10 ml IV BID [facility] Stop: 12/22/18 09:01 Last Admin: 11/23/18 08:11 Dose: 10 ml Assessment/ Plan: Nephrology. Feeling better. N/V resolved. CPS stable without CP or SOB. No acute events overnight. Vitals, medications, blood work and imaging reviewed in the chart. General: Cooperative, Moderate distress HEENT: Atraumatic, Normocephalic Neck: Supple Respiratory: Clear to auscultation bilaterally, Normal air movement Cardiovascular: No edema, Regular rate/rhythm Gastrointestinal: Non-distended, No guarding, Tenderness Musculoskeletal: No clubbing, No contractures Integumentary: No rashes Neurological: Normal speech Laboratory Data (last 24 hrs) 11/22/18 03:38: Sodium 129 L, Potassium 4.0, BUN 27 H, Creatinine 1.96 H, Glucose 912 H* 11/22/18 00:55: PT 10.7, INR 0.90 11/22/18 00:55: WBC 9.1, Hgb 11.6 L, Hct 35.6 L, Plt Count 326 11/22/18 00:55: Sodium 124 L, Potassium 4.0, BUN 28 H, Creatinine 2.21 H, Glucose 1040 H*, Magnesium 2.4, Total Bilirubin 0.3, AST 9 L, ALT 17, Alkaline Phosphatase 175 H, Lipase 308 Imagings Data: EXAM DESCRIPTION: CT - Abdomen Pelvis Wo Contrast - 11/22/2018 5:11 am CLINICAL HISTORY: 48-year-old female with nausea and vomiting and epigastric pain for two days TECHNIQUE: Axial CT imaging of the abdomen and pelvis was performed. Sagittal and coronal reconstructed images were then performed. The CT study is performed according to ALARA (as low as reasonably achievable) or ALARA/IMAGE GENTLY, with automatic adjustment of mA and/or kV according to patient size. Performed on: 11/22/2018 at 4:00 AM COMPARISON: None. FINDINGS: Lung bases: The lung bases are clear. Liver: The liver is top normal in size and measures 18 cm in craniocaudal dimension. The liver is slightly heterogeneous in attenuation which can be seen with fatty infiltration. No focal hepatic abnormalities are appreciated on this unenhanced scan. Spleen: The spleen is normal is size, configuration and attenuation. No focal splenic abnormalities are appreciated on this unenhanced scan. Gallbladder and bile duct: The gallbladder is surgically absent. There is very mild dilatation of the common bile duct likely physiologic in nature following a cholecystectomy. Pancreas: The pancreas is grossly normal in size and configuration. Adrenal Glands: The adrenal glands are normal in size and configuration. Kidneys: The kidneys are normal in size and configuration. There is no evidence of hydronephrosis. There is punctate bilateral nonobstructing nephrolithiasis. No focal renal abnormalities are identified. Stomach: The stomach is grossly normal. There is no definite hiatal hernia. Bowel: The bowel gas pattern is non specific and non obstructive. Appendix: The appendix is normal. Free air: There is no evidence of free air. Free fluid: There is no evidence of free fluid. Vasculature: The aorta is normal in caliber and contour. The inferior vena cava is grossly unremarkable. Lymphadenopathy: No pathologic lymphadenopathy is identified. Bladder: The bladder is well distended and smooth in contour. Reproductive: The uterus is grossly within normal limits. There are a few coarse calcifications within the uterus which may reflect calcified uterine fibroids. Bones: No acute osseous abnormalities are identified. Soft tissues: No focal soft tissue abnormalities are identified. IMPRESSION: 1. No evidence of acute intra-abdominal or intrapelvic pathology. There is no evidence of bowel obstruction 2. Punctate bilateral nonobstructing renal calculi. 3. Borderline hepatomegaly and heterogeneous attenuation of the liver commonly due to fatty infiltration. 4. Remote cholecystectomy. 5. There are a couple of small coarse calcifications in the uterus likely related to calcified uterine fibroids. EXAM DESCRIPTION: US - Renal Ultrasound-Complete - 11/22/2018 12:30 pm CLINICAL HISTORY: . Acute and chronic renal disease COMPARISON: November 22, 2018 CT FINDINGS: The right kidney measures 11 cm with a normal echotexture. The left kidney measures 10 cm with a normal echotexture. Hydronephrosis is not seen. No gross abnormality of the bladder IMPRESSION: Unremarkable renal ultrasound. Conclusions/Impression: A/ LINDA likely volume depletion. CKD III with proteinuria. Hyponatremia. Hypokalemia. DM II with HHS, uncontrolled. Anemia in chronic illness. Moderate protein malnutrition. P/ Continue current POC and Medications. Aggressive IVF. Replete lytes as ordered. Insulin gtt. No NSAIDS. AM labs. Daily weight.
[2018-11-23] MEDS ORDERED: INSULIN GLARGINE 100 UNITS/ML SQ ONE (15:18)
[2018-11-23] MEDS: HYDRALAZINE HCL 25 MG TABLET PO SCH ×2 (15:32→21:00)
[2018-11-23] MEDS: ENOXAPARIN 30 MG/0.3 ML SQ SCH (16:17)
[2018-11-23] MEDS ORDERED: METOCLOPRAMIDE 10 MG/2mL INJ IV PRN (17:26)
[2018-11-23] MEDS: AMLODIPINE 5 MG TAB PO SCH ×2 (17:45→21:38)
[2018-11-23] MEDS: ONDANSETRON 4 MG/2 ML VIAL IV PRN (19:43)
[2018-11-23] MEDS: INSULIN GLARGINE 100 UNITS/ML SQ SCH (20:54)
[2018-11-24] MEDS: NACHLORIDE 0.45% 1,000 ML IV SCH ×2 (00:23→09:02)
[2018-11-24 05:37] LABS: Absolute Lymphocytes (CBC) 4.7 K/uL (0.7-4.9); Absolute Monocytes 1.1 K/uL (0.1-1.3); Absolute Neutrophil 8.8 K/uL (1.8-8.0); Basophils % 1.4 % (0-1.3); Eosinophils % 1.4 % (0-4.4); Hematocrit 31.4 % (36.0-45.0); Lymphocytes % 31.4 % (15.3-44.8); MPV 11.4 fL (7.6-11.3); Monocytes % 7.1 % (3.3-12.3); RBC Red Blood Cell Count 3.57 M/uL (3.86-4.86)
[2018-11-24 06:07] LABS: Magnesium 2.1 mg/dL (1.8-2.4); Potassium 3.4 mmol/L (3.5-5.1)
[2018-11-24] MEDS ORDERED: PANTOPRAZOLE 40MG TABLET PO SCH (06:30)
[2018-11-24 07:08] LABS: Urine Appearance CLEAR; Urine Bilirubin NEGATIVE (NEG); Urine Blood TRACE (NEG); Urine Color YELLOW; Urine Glucose 3+ (NEG); Urine Protein 3+ (NEG); Urine Urobilinogen 0.2 mg/dL (0.2-1.0)
[2018-11-24 07:39] LABS: Urine Bacteria <20 /HPF (<20); Urine RBC <5 /HPF (NONE SEEN)
[2018-11-24 07:40] LABS: Urine Culture Reflex Order REFLEXED; Urine Mucus 1+ /HPF (NONE SEEN)
[2018-11-24] MEDS: HYDRALAZINE HCL 25 MG TABLET PO SCH (08:09)
[2018-11-24] MEDS: FOLIC ACID 1 MG TABLET PO SCH (08:09)
[2018-11-24] MEDS: AMLODIPINE 5 MG TAB PO SCH (08:09)
[2018-11-24] MEDS: METOPROLOL TAR 50 MG TAB PO SCH (08:09)
[2018-11-24] MEDS: INSULIN GLARGINE 100 UNITS/ML SQ SCH (08:10)
[2018-11-24] MEDS: INSULIN -REGULAR HUMAN 50 UNIT/0.5 ML ML SQ SCH ×2 (08:10→11:48)
[2018-11-24] MEDS ORDERED: POTASSIUM CL SA 10 MEQ TAB PO ONE (09:00)
--- NOTE | 2018-11-24 09:29 | P.DS ---
Admission Date: 11/22/18 Discharge Date: 11/24/18 Primary Care Provider: Madyson Ho Disposition: ROUTINE DISCHARGE Discharge Condition: GOOD Reason for Admission: hyperosmolar hyperglycemic syndrome Consultations: Nephrology-Dr. Talley Procedures: CTAB: IMPRESSION: 1. No evidence of acute intra-abdominal or intrapelvic pathology. There is no evidence of bowel obstruction 2. Punctate bilateral nonobstructing renal calculi. 3. Borderline hepatomegaly and heterogeneous attenuation of the liver commonly due to fatty infiltration. 4. Remote cholecystectomy. 5. There are a couple of small coarse calcifications in the uterus likely related to calcified uterine fibroids. Renal US: COMPARISON: November 22, 2018 CT FINDINGS: The right kidney measures 11 cm with a normal echotexture. The left kidney measures 10 cm with a normal echotexture. Hydronephrosis is not seen. No gross abnormality of the bladder IMPRESSION: Unremarkable renal ultrasound. KUB: FINDINGS: Bowel gas pattern is non-specific. No obstruction, free air or pneumatosis. No suspicious calcifications. No evidence for change from the earlier CT study. No significant bony findings IMPRESSION: No obstruction or free air. No acute finding from earlier imaging. Medical Problem List: Hyperosmolar nonketotic hyperglycemia with diabetes mellitus type 2 uncontrolled Suspect acute on chronic renal disease, stage 4 secondary to Nausea and vomiting with dehydration with possible kidney injury related to medication versus gastroenteritis, now stage III Hyponatremia Hypertension Fatty liver Suspect GERD Anemia likely of chronic disease Obesity, BMI 32.8 Uterine fibroids Nonobstructing renal calculi Brief History of Present Illness: 48-year-old female presented to emergency room with nausea and vomiting. Patient with underlying diabetes and hypertension. Patient found to have severe hyperglycemia. Patient was admitted for treatment. Hospital Course: Patient presented with nausea, vomiting secondary to hyperosmolar nonketotic hyperglycemia. Patient with history of diabetes type 2. Patient required ICU treatment with IV insulin. Blood sugars improved. A1c greater than 14. Dietary lifestyle education and diabetic education addressed in detail. At discharge patient will continue with NPH 25 units subcu twice daily. Recommend to monitor blood sugar at least twice daily. Recommend to maintain blood sugar less than 140 fasting and less than 200 after meals. Further adjustment in her medication may be required. This can be further addressed by her PCP. Patient to establish care locally to continue her care. At discharge metformin discontinued due to her chronic renal disease. Patient also is presented with acute on chronic renal disease, stage IV. This is likely from dehydration and gastroenteritis. Patient received IV fluids. CT showed nonobstructing nephrolithiasis. Medications adjusted during her stay. Hydrochlorothiazide and metformin were discontinued. Nephrology was consulted. At discharge renal function improved to stage III. Patient will need a follow up with nephrology in 1 week to monitor progress. Recommend to recheck lab-BMP in 1 week. Recommend no further use of nonsteroidal anti- inflammatories. Future medications will need to be renally dosed. Patient will no longer continue with hydrochlorothiazide and metformin. Patient with hypertension. Blood pressure was elevated. Patient required multiple medications for better control. At discharge, she will continue with metoprolol 100 mg 1 pill twice daily, hydralazine 25 mg 1 pill 3 times a day, and Norvasc 5 mg 1 pill twice daily. Recommend maintain blood pressures less 150/80. Further adjustment can be done by her PCP. Patient likely with GERD. Patient started on medication. At discharge she will continue with Protonix 40 mg 1 pill once daily. Recommend to follow up with GI as an outpatient to further evaluate. Patient would likely require EGD in the future to further address. Patient with anemia. Iron deficiency noted. At discharge she will continue with iron 325 mg daily. Recommend to recheck lab-CBC in 2-4 weeks to monitor progress. Recommend GI evaluation as an outpatient to further address. Patient found to have fatty liver on CT scan. Education provided. This can be followed up by GI as an outpatient. Patient found to have uterine fibroids on CT scan. Recommend to follow up with GI as an outpatient to further monitor and address. Vital Signs/Physical Exam: Temp Pulse Resp BP Pulse Ox 98.3 F 88 16 161/64 H 100 11/24/18 04:00 11/24/18 08:09 11/24/18 06:00 11/24/18 08:09 11/24/18 06:00 General: Alert, In no apparent distress, Oriented x3, Cooperative HEENT: Atraumatic Neck: Supple Respiratory: Clear to auscultation bilaterally, Normal air movement Cardiovascular: Normal pulses, Regular rate/rhythm Gastrointestinal: Normal bowel sounds, Soft and benign, Non-distended, No ascites, No tenderness, No masses, No rebound, No guarding Musculoskeletal: No erythema, No tenderness, No warmth Integumentary: No tenderness/swelling, No erythema, No warmth, No cyanosis Neurological: Normal speech, Normal strength at 5/5 x4 extr, Normal tone, Normal affect Laboratory Data at Discharge: WBC 14.9 K/uL (4.3-10.9) H D 11/24/18 05:23 Hgb 10.3 g/dL (12.0-15.0) L 11/24/18 05:23 Hct 31.4 % (36.0-45.0) L 11/24/18 05:23 Plt Count 323 K/uL (152-406) 11/24/18 05:23 PT 10.7 SECONDS (9.5-12.5) 11/22/18 00:55 INR 0.90 11/22/18 00:55 Sodium 144 mmol/L (136-145) 11/24/18 05:23 Potassium 3.4 mmol/L (3.5-5.1) L 11/24/18 05:23 BUN 18 mg/dL (7-18) 11/24/18 05:23 Creatinine 1.47 mg/dL (0.55-1.3) H 11/24/18 05:23 Glucose 113 mg/dL (74-106) H 11/24/18 05:23 Uric Acid 7.6 mg/dL (2.6-6.0) H 11/23/18 05:44 Phosphorus 2.5 mg/dL (2.5-4.9) 11/23/18 05:44 Magnesium 2.1 mg/dL (1.8-2.4) 11/24/18 05:23 Total Bilirubin 0.3 mg/dL (0.2-1.0) 11/22/18 00:55 AST 9 U/L (15-37) L 11/22/18 00:55 ALT 17 U/L (12-78) 11/22/18 00:55 Alkaline Phosphatase 175 U/L (45-117) H 11/22/18 00:55 Lipase 308 U/L (73-393) 11/22/18 00:55 Home Medications: Amlodipine [Norvasc*] 5 mg PO BID #60 tab 11/24/18 Ferrous Sulfate [Iron] 325 mg PO DAILY #30 tablet 11/24/18 Hydralazine [Apresoline*] 25 mg PO TID #90 tab 11/24/18 Insulin NPH Human [Novolin N (Humulin N)*] 25 units SQ BID #1 vial 11/24/18 Metoprolol Tartrate 100 mg PO BID #60 tablet 11/24/18 Pantoprazole [Protonix Tab*] 40 mg PO DAILYAC #30 tab 11/24/18 New Medications: Amlodipine [Norvasc*] 5 mg PO BID #60 tab Ferrous Sulfate [Iron] 325 mg PO DAILY #30 tablet Hydralazine [Apresoline*] 25 mg PO TID #90 tab Insulin NPH Human [Novolin N (Humulin N)*] 25 units SQ BID #1 vial Metoprolol Tartrate 100 mg PO BID #60 tablet Pantoprazole [Protonix Tab*] 40 mg PO DAILYAC #30 tab Patient Discharge Instructions: 1. Patient will need to establish care with a PCP to follow up this hospitalization. 2. Patient presented with nausea, vomiting secondary to hyperosmolar nonketotic hyperglycemia. Patient with history of diabetes type 2. Patient required ICU treatment with IV insulin. Blood sugars improved. A1c greater than 14. Dietary lifestyle education and diabetic education will be provided. At discharge patient will continue with NPH 25 units subcu twice daily. Recommend to monitor blood sugar at least twice daily. Recommend to maintain blood sugar less than 140 fasting and less than 200 after meals. Further adjustment in her medication may be required. This can be further addressed by her PCP. Patient to establish care locally to continue her care. At discharge metformin discontinued due to her chronic renal disease. 3. Patient also presented with acute on chronic renal disease, stage IV. This is likely from dehydration and gastroenteritis. Patient received IV fluids. CT showed nonobstructing nephrolithiasis. Medications adjusted during her stay. Hydrochlorothiazide and metformin were discontinued. Nephrology was consulted. At discharge renal function improved to stage III. Patient will need a follow up with nephrology in 1 week to monitor progress. Recommend to recheck lab-BMP in 1 week. Recommend no further use of nonsteroidal anti-inflammatories. Future medications will need to be renally dosed. Patient will no longer continue with hydrochlorothiazide and metformin. 4. Patient with hypertension. Blood pressure was elevated. Patient required multiple medications for better control. At discharge, she will continue with metoprolol 100 mg 1 pill twice daily, hydralazine 25 mg 1 pill 3 times a day, and Norvasc 5 mg 1 pill twice daily. Recommend maintain blood pressures less 150/80. Further adjustment can be done by her PCP. 5. Patient likely with GERD. Patient started on medication. At discharge she will continue with Protonix 40 mg 1 pill once daily. Recommend to follow up with GI as an outpatient to further evaluate. Patient would likely require EGD in the future to further address. 6. Patient with anemia. Iron deficiency noted. At discharge she will continue with iron 325 mg daily. Recommend to recheck lab- CBC in 2-4 weeks to monitor progress. Recommend GI evaluation as an outpatient to further address. 7. Patient found to have fatty liver on CT scan. Education provided. This can be followed up by GI as an outpatient. 8. Patient found to have uterine fibroids on CT scan. Recommend to follow up with GI as an outpatient to further monitor and address. Diet: ADA Activity: Ad lisa Time spent managing pt's care (in minutes): 55
[2018-11-24 12:59] VITALS: BP 123/60; TEMP 98.2
--- NOTE | 2018-11-26 11:23 | EKG ---
Test Date: 2018-11-22 Test Time: 01:48:35 Janitor: AG3 MEASUREMENT RESULTS: Intervals: Rate: 91 MI: 162 QRSD: 88 QT: 386 QTc: 474 [place]: P: 61 MI: 162 QRS: -14 T: 152 INTERPRETIVE STATEMENTS: Normal sinus rhythm Voltage criteria for left ventricular hypertrophy ST & T wave abnormality, consider lateral ischemia Prolonged QT Abnormal ECG Compared to ECG 09/23/2017 21:12:43 Left ventricular hypertrophy now present ST (T wave) deviation now present Prolonged QT interval now present T-wave abnormality no longer present Possible ischemia still present Electronically Signed On 11-22-18 09:51:07 CDT by John Archer
== END 2018-11-24 12:25 | disposition home or self-care (01) | DRG 638 ==
LOC: ER 23:25 → ERHOLD 11-22 04:55 → 3RD-ICU 11-22 05:31
PROVIDERS: ADMIT Internal Medicine; ATTEND Family Medicine
DX: E11.00 Type 2 diabetes mellitus with hyperosmolarity without nonketotic hyperglycemic-hyperosmolar coma (NKHHC) (principal); N17.9 Acute kidney failure, unspecified; E87.1 Hypo-osmolality and hyponatremia; E44.0 Moderate protein-calorie malnutrition; Z79.4 Long term (current) use of insulin; Z79.84 Long term (current) use of oral hypoglycemic drugs; I12.9 Hypertensive chronic kidney disease with stage 1 through stage 4 chronic kidney disease, or unspecified chronic kidney disease; E11.22 Type 2 diabetes mellitus with diabetic chronic kidney disease; E11.65 Type 2 diabetes mellitus with hyperglycemia; E86.0 Dehydration; K76.0 Fatty (change of) liver, not elsewhere classified; K21.9 Gastro-esophageal reflux disease without esophagitis; D63.1 Anemia in chronic kidney disease; E66.9 Obesity, unspecified; Z68.32 Body mass index [BMI] 32.0-32.9, adult; D25.9 Leiomyoma of uterus, unspecified; N20.0 Calculus of kidney; N18.3 Chronic kidney disease, stage 3 (moderate); D50.9 Iron deficiency anemia, unspecified; F41.9 Anxiety disorder, unspecified; R80.9 Proteinuria, unspecified; E87.6 Hypokalemia
CPT/HCPCS: 36415; 71045; 74018; 74176; 76770; 80048; 80076; 81001; 81003; 81015; 81025; 82010; 82043; 82570; 82607; 82728; 82805; 82947; 82962; 83540; 83690; 83735; 84100; 84466; 84484; 84550; 85025; 85610; 87077; 87086; 87088; 87186; 93005; 99285; C9113; J0360; J1644; J1650; J2270; J2405; J2550; J2765; J7030

== ENCOUNTER 2019-07-15 01:13 | Inpatient (IN) | payer SELFPAY ==
--- OUTSIDE RECORDS SUMMARY | 2019-07-15 01:15 | XMS REPORT ---
:1970 [facility] Address [address] [place] [address] Dr. Palacios [address] [place] [id number] Care Team Providers Name Role Phone Unavailable Unavailable Unavailable Problems This patient has no known problems. Allergies, Adverse Reactions, Alerts This patient has no known allergies or adverse reactions. Medications This patient has no known medications.
[2019-07-15 01:42] LABS: Absolute Lymphocytes (CBC) 1.7 K/uL (0.7-4.9); Basophils % 0.5 % (0-1.3); Hematocrit 27.4 % (36.0-45.0); MPV 10.5 fL (7.6-11.3); RBC Red Blood Cell Count 3.19 M/uL (3.86-4.86)
[2019-07-15 01:45] LABS: Protime INR 0.78
[2019-07-15 01:56] LABS: ALT/SGPT 18 U/L (12-78); AST/SGOT 12 U/L (15-37); Albumin 2.9 g/dL (3.4-5.0); Alkaline Phosphatase 89 U/L (45-117); BUN Blood Urea Nitrogen 34 mg/dL (7-18); Bicarbonate 21 mmol/L (21-32); Bilirubin Direct < 0.1 mg/dL (0-0.2); Bilirubin Total 0.1 mg/dL (0.2-1.0); Glucose Level 217 mg/dL (74-106); Magnesium 1.7 mg/dL (1.8-2.4); NT PRO-BNP 2470 pg/mL (<125); Potassium 3.9 mmol/L (3.5-5.1); Protein, Total 6.7 g/dL (6.4-8.2); Sodium Level 139 mmol/L (136-145); Troponin (Emerg Dept Use Only) < 0.02 ng/mL (0.0-0.045)
[2019-07-15] MEDS ORDERED: MORPHINE 4 MG/ML SYR ONE (02:27)
[2019-07-15] MEDS ORDERED: ONDANSETRON 4 MG/2 ML VIAL ONE ×2 (02:27→08:01)
--- NOTE | 2019-07-15 02:27 | ER ---
Nurse's Notes [facility] Name: Shelley Azul Age: 48 yrs Sex: Female : 1970 Arrival Date: 07/15/2019 Time: 01:15 Bed 8 Private MD: Diagnosis: Hypertensive heart and chronic kidney disease;Chest pain, unspecified Presentation: 07/15 01:06 Presenting complaint: Patient states: that she was woken up by upper chest and throat fc pain. Also has cough and congestion. Transition of care: patient was not received from another setting of care. Onset of symptoms was July 15, 2019 at 00:00. Risk Assessment: Do you want to hurt yourself or someone else? Patient reports no desire to harm self or others. Initial Sepsis Screen: Does the patient meet any 2 criteria? HR > 90 bpm. Yes Does the patient have a suspected source of infection? No. Patient's initial sepsis screen is negative. Care prior to arrival: Glucose check: 186. 01:06 Method Of Arrival: EMS: [facility] 01:06 Acuity: UZMA 3 fc Historical: - Allergies: 01:20 No Known Allergies; fc - Home Meds: 01:20 clonidine HCl 0.1 mg Oral tab 1 tab 2 times per day [Active]; hydrochlorothiazide 25 mg fc Oral tab 1 tab once daily [Active]; metformin 1,000 mg Oral tab 2 times per day [Active]; Metoprolol Tartrate Oral [Active]; - PMHx: 01:20 Anemia; Anxiety; Diabetes - NIDDM; Hypertension; fc - PSHx: 01:20 None; fc - Immunization history:: Last tetanus immunization: unknown, Flu vaccine is not up to date. - Social history:: Smoking status: Patient/guardian denies using tobacco, Patient/guardian denies using alcohol, street drugs. - Ebola Screening: : Patient negative for fever greater than or equal to 101.5 degrees Fahrenheit, and additional compatible Ebola Virus Disease symptoms Patient denies exposure to infectious person Patient denies travel to an Ebola-affected area in the 21 days before illness onset. Screenin:06 Abuse screen: Denies threats or abuse. Nutritional screening: No deficits noted. fc Tuberculosis screening: No symptoms or risk factors identified. Fall Risk None identified. Assessment: 01:24 General: Appears uncomfortable, Behavior is anxious, crying. Pain: Complains of pain in ea upper chest and sore throat. Neuro: Level of Consciousness is awake, alert, obeys commands, Oriented to person, place, time, situation. Cardiovascular: Patient's skin is warm and dry. Respiratory: Airway is patent Respiratory effort is even, unlabored, Respiratory pattern is regular, symmetrical. Derm: Skin is pink, warm \T\ dry. 02:30 Reassessment: Patient and/or family updated on plan of care and expected duration. Pain ea level reassessed. Patient is alert, oriented x 3, equal unlabored respirations, skin warm/dry/pink. 03:30 Reassessment: Patient and/or family updated on plan of care and expected duration. Pain ea level reassessed. Patient is alert, oriented x 3, equal unlabored respirations, skin warm/dry/pink. 04:24 Reassessment: Patient and/or family updated on plan of care and expected duration. Pain ea level reassessed. Patient is alert, oriented x 3, equal unlabored respirations, skin warm/dry/pink. 07:05 Reassessment: Pt resting in bed with eyes closed, respirations even and unlabored, skin aa5 is pink/warm/dry. . 07:07 Reassessment: Unsuccessful attempt to call report to admitting nurse. . aa5 07:20 Reassessment: Pt to VQ scan via wheelchair. . aa5 07:45 Reassessment: Patient is alert, oriented x 3, equal unlabored respirations, skin aa5 warm/dry/pink. Pt back from VQ scan via wheelchair. . 08:03 Reassessment: Patient is alert, oriented x 3, equal unlabored respirations, skin aa5 warm/dry/pink. Pt c/o nausea (see [facility]uki (Vozero/Gengibre) for Zofran administration) . Vital Signs: 01:06 BP 198 / 111; Pulse 127; Resp 20; Temp 98.9(O); Pulse Ox 97% on R/A; Weight 81.65 kg fc (R); Height 5 ft. 4 in. (162.56 cm) (R); Pain 8/10; 01:25 BP 179 / 91; Pulse 103; Resp 20; Pulse Ox 97% ; ea 02:30 BP 181 / 85; Pulse 87; Resp 18; Pulse Ox 95% on R/A; ea 03:30 BP 159 / 80; Pulse 80; Resp 18; Pulse Ox 95% on R/A; ea 04:00 BP 155 / 66; Pulse 78; Resp 18; Pulse Ox 95% on R/A; ea 05:00 BP 162 / 91; Pulse 80; Resp 18; Pulse Ox 95% on R/A; ea 06:00 BP 114 / 57; Pulse 81; Resp 18; Pulse Ox 95% on R/A; ea 07:10 BP 110 / 57; Pulse 83; Resp 16 S; Temp 98.8(O); Pulse Ox 100% on R/A; Pain 0/10; aa5 01:06 Body Mass Index 30.90 (81.65 kg, 162.56 cm) ED Course: 01:06 Arm band placed on Patient placed in an exam room, on a stretcher. fc 01:06 Patient has correct armband on for positive identification. Placed in gown. Bed in low fc position. Call light in reach. Side rails up X2. groundwater monitoring technician on. Pulse ox on. NIBP on. 01:06 No provider procedures requiring assistance completed. fc 01:15 Patient arrived in ED. tw4 01:16 Triage completed. fc 01:16 Alvin Church MD is Attending Physician. tw4 01:24 Ami Keller, TRAVIS is Primary Nurse. ea 01:34 Radiology exam delayed due to lab results not completed at this time. (BUN/Creatinine). vm2 01:47 Notified ED physician of a critical lab result(s). 892 d-dimer. ak1 02:06 XRAY Chest (1 view) In Process Unspecified. EDMS 02:24 Althea Newman MD is Hospitalizing Provider. tw4 04:24 Patient admitted, IV remains in place. ea 07:50 Note: VQ SCAN COMPLETE. PT TOLERATED SCAN WELL, NO CHANGE. RETURNED TO THE ED. NURSE rolando2 NOTIFIED. RT JAMIL(N), DINING SERVICE INSPECTOR. Administered Medications: 02:36 Drug: Zofran 4 mg Route: IVP; Site: right antecubital; ea 06:17 Follow up: Response: No adverse reaction ea 02:37 Drug: Lovenox 1 mg/kg Route: Sub-Q; Site: right lower abdomen; ea 03:00 Follow up: Response: No adverse reaction ea 02:37 Drug: morphine 4 mg Route: IVP; Site: right antecubital; ea 03:00 Follow up: Response: No adverse reaction ea Outcome: 02:26 Decision to Hospitalize by Provider. tw4 03:00 Admitted to ER Hold. Please see [facility] for further documentation. ea 03:00 Instructed on the need for admit. 04:23 Condition: stable ea 08:05 Admitted to Tele accompanied by tech, family with patient, via stretcher, with chart, aa5 Report called to TRAVIS Smith 08:05 Condition: stable 08:06 Patient left the ED. aa5 Signatures: Dispatcher [employer] EDMS Jericho Phipps Felicia, RN RN Estela Mills, RN RN aaSandi Jc RN RN Priya Terrell Elena RN RN Alvin Guillen MD MD tw4
--- NOTE | 2019-07-15 02:27 | EDPHYS ---
Physician Documentation [facility] Name: Shelley Azul Age: 48 yrs Sex: Female : 1970 Arrival Date: 07/15/2019 Time: 01:15 Bed 8 Private MD: ED Physician Alvin Church HPI: 07/15 01:31 This 48 yrs old Female presents to ER via EMS with complaints of Chest Pain, tw4 Shortness Of Breath. 01:31 The patient or guardian reports chest pain that is located primarily in the anterior tw4 chest wall. 01:36 Onset: 1 hour(s) ago. The pain does not radiate. Associated signs and symptoms: The tw4 patient has no apparent associated signs or symptoms. The chest pain is described as a heaviness. Duration: The patient or guardian reports a single episode, that is still ongoing. Modifying factors: The symptoms are alleviated by nothing. the symptoms are aggravated by nothing. Severity of pain: At its worst the pain was moderate in the emergency department the pain is unchanged. The patient has experienced similar episodes in the past, a few times. Historical: - Allergies: 01:20 No Known Allergies; fc - Home Meds: 01:20 clonidine HCl 0.1 mg Oral tab 1 tab 2 times per day [Active]; hydrochlorothiazide 25 mg fc Oral tab 1 tab once daily [Active]; metformin 1,000 mg Oral tab 2 times per day [Active]; Metoprolol Tartrate Oral [Active]; - PMHx: 01:20 Anemia; Anxiety; Diabetes - NIDDM; Hypertension; fc - PSHx: 01:20 None; fc - Immunization history:: Last tetanus immunization: unknown, Flu vaccine is not up to date. - Social history:: Smoking status: Patient/guardian denies using tobacco, Patient/guardian denies using alcohol, street drugs. - Ebola Screening: : Patient negative for fever greater than or equal to 101.5 degrees Fahrenheit, and additional compatible Ebola Virus Disease symptoms Patient denies exposure to infectious person Patient denies travel to an Ebola-affected area in the 21 days before illness onset. ROS: 01:36 Constitutional: Negative for fever, chills, and weight loss, Eyes: Negative for injury, tw4 pain, redness, and discharge, Respiratory: Negative for shortness of breath, cough, wheezing, and pleuritic chest pain, Abdomen/GI: Negative for abdominal pain, nausea, vomiting, diarrhea, and constipation, Back: Negative for injury and pain, MS/Extremity: Negative for injury and deformity, Skin: Negative for injury, rash, and discoloration, Neuro: Negative for headache, weakness, numbness, tingling, and seizure. 01:36 Cardiovascular: Positive for chest pain, Negative for edema, orthopnea, palpitations. Exam: 01:36 Head/Face: Normocephalic, atraumatic. tw4 01:36 Chest/axilla: Normal chest wall appearance and motion. Nontender with no deformity. No lesions are appreciated. Cardiovascular: Regular rate and rhythm with a normal S1 and S2. No gallops, murmurs, or rubs. Normal PMI, no JVD. No pulse deficits. Respiratory: Lungs have equal breath sounds bilaterally, clear to auscultation and percussion. No rales, rhonchi or wheezes noted. No increased work of breathing, no retractions or nasal flaring. Abdomen/GI: Soft, non-tender, with normal bowel sounds. No distension or tympany. No guarding or rebound. No evidence of tenderness throughout. Back: No spinal tenderness. No costovertebral tenderness. Full range of motion. MS/ Extremity: Pulses equal, no cyanosis. Neurovascular intact. Full, normal range of motion. Neuro: Awake and alert, GCS 15, oriented to person, place, time, and situation. Cranial nerves II-XII grossly intact. Motor strength 5/5 in all extremities. Sensory grossly intact. Cerebellar exam normal. Normal gait. 01:36 Constitutional: The patient appears in obvious distress, moderately distressed. Vital Signs: 01:06 BP 198 / 111; Pulse 127; Resp 20; Temp 98.9(O); Pulse Ox 97% on R/A; Weight 81.65 kg fc (R); Height 5 ft. 4 in. (162.56 cm) (R); Pain 8/10; 01:25 BP 179 / 91; Pulse 103; Resp 20; Pulse Ox 97% ; ea 02:30 BP 181 / 85; Pulse 87; Resp 18; Pulse Ox 95% on R/A; ea 03:30 BP 159 / 80; Pulse 80; Resp 18; Pulse Ox 95% on R/A; ea 04:00 BP 155 / 66; Pulse 78; Resp 18; Pulse Ox 95% on R/A; ea 05:00 BP 162 / 91; Pulse 80; Resp 18; Pulse Ox 95% on R/A; ea 06:00 BP 114 / 57; Pulse 81; Resp 18; Pulse Ox 95% on R/A; ea 07:10 BP 110 / 57; Pulse 83; Resp 16 S; Temp 98.8(O); Pulse Ox 100% on R/A; Pain 0/10; aa5 01:06 Body Mass Index 30.90 (81.65 kg, 162.56 cm) fc MDM: 01:17 Patient medically screened. tw 02:29 HEART Score: History: Moderately Suspicious (1), ECG: Non specific repolarization tw4 disturbance / LBTB / PM (1), Age: > 45 and < 65 years (1), Risk Factors: 1 or 2 risk factors (1), Troponin: < or = 1 x Normal Limit (0). Data reviewed: vital signs, nurses notes. Data interpreted: campus monitor: rhythm is normal sinus rhythm, Pulse oximetry: is not applicable for this patient encounter. Test interpretation: by ED physician or midlevel provider: ECG, plain radiologic studies. Counseling: I had a detailed discussion with the patient and/or guardian regarding: the historical points, exam findings, and any diagnostic results supporting the discharge/admit diagnosis, lab results, radiology results. Physician consultation: Althea Newman MD regarding admission, to the telemetry unit. and will see patient in ED. 07/15 01:18 Order name: Basic Metabolic Panel; Complete Time: 02:12 07/15 02:12 Interpretation: Normal except: CL 111; BUN 34; CRE 1.76; GFR 31; GLUC 217. 07/15 01:18 Order name: CBC with Diff; Complete Time: 02:12 07/15 02:12 Interpretation: Normal except: RBC 3.19; HGB 9.3; HCT 27.4. 07/15 01:18 Order name: LFT's; Complete Time: 02:12 07/15 02:12 Interpretation: Normal except: AST 12; BILIT 0.1; ALB 2.9; GLOB 3.8; A/G 0.8. 07/15 01:18 Order name: Magnesium; Complete Time: 02:12 tw4 07/15 02:13 Interpretation: Normal except: MG 1.7. tw4 07/15 01:18 Order name: NT PRO-BNP; Complete Time: 02:12 tw 07/15 02:13 Interpretation: Normal except: NT PRO-BNP 2470. [facility] 07/15 01:18 Order name: PT-INR; Complete Time: 02:12 [facility] 07/15 02:16 Interpretation: Normal except: PT 9.3. tw 07/15 01:18 Order name: Troponin (emerg Dept Use Only); Complete Time: 02:12 [facility] 07/15 02:18 Interpretation: Normal except: TROPED < 0.02. [facility] 07/15 01:18 Order name: D-Dimer; Complete Time: 02:12 [facility] 07/15 02:18 Interpretation: Normal except: D-DIMER 892. [facility] 07/15 03:40 Order name: Ferritin [facility] 07/15 03:40 Order name: Transferrin Sat/Iron Binding [facility] 07/15 03:40 Order name: Comprehensive Metabolic Panel [facility] 07/15 03:40 Order name: Comprehensive Metabolic Panel [facility] 07/15 03:40 Order name: Lipid Profile [facility] 07/15 03:40 Order name: Lipid Profile [facility] 07/15 01:18 Order name: XRAY Chest (1 view) [facility] 07/15 01:18 Order name: EKG; Complete Time: 01:19 tw4 07/15 01:18 Order name: Cardiac monitoring; Complete Time: 01:20 [facility] 07/15 01:18 Order name: EKG - Nurse/Tech; Complete Time: 01:20 tw 07/15 01:18 Order name: IV Saline Lock; Complete Time: 01:20 tw 07/15 03:40 Order name: Troponin I [facility] 07/15 03:40 Order name: Troponin I [facility] 07/15 03:40 Order name: Troponin I [facility] 07/15 03:41 Order name: CONS Pharmacy Consult [facility] 07/15 03:41 Order name: CONS Pharmacy Consult [facility] 07/15 03:41 Order name: Consistent Carb (ADA) [address] EDDE 07/15 03:43 Order name: Vent Perfusion VQ Scan [facility] 07/15 01:18 Order name: Labs collected and sent; Complete Time: 01:39 tw4 07/15 01:18 Order name: O2 Per Protocol; Complete Time: :20 tw4 07/15 01:18 Order name: O2 Sat Monitoring; Complete Time: tw4 Administered Medications: 02:36 Drug: Zofran 4 mg Route: IVP; Site: right antecubital; ea 06:17 Follow up: Response: No adverse reaction ea 02:37 Drug: Lovenox 1 mg/kg Route: Sub-Q; Site: right lower abdomen; ea 03:00 Follow up: Response: No adverse reaction ea 02:37 Drug: morphine 4 mg Route: IVP; Site: right antecubital; ea 03:00 Follow up: Response: No adverse reaction ea Disposition: 07/15/19 02:26 Hospitalization ordered by Althea Newman for Inpatient Admission. Preliminary diagnosis are Hypertensive heart and chronic kidney disease, Chest pain, unspecified. - Bed requested for Telemetry/MedSurg (Inpatient). - Status is Inpatient Admission. aa5 - Condition is Stable. - Problem is new. - Symptoms have improved. UTI on Admission? No Signatures: Dispatcher [employer] EDDE Angle Pang RN TRAVIS Estela Enrique RN RN aa5 Ami Keller RN RN Raf Koehler RN RN ja1 Alvin Church MD MD tw4 Tisha Trejo mw2 Corrections: (The following items were deleted from the chart) 01:20 01:19 Chest Single View+RAD.RAD.BRZ ordered. EDDE EDMS 02:45 01:32 Chest For PE Angio+CT.RAD.BRZ ordered. [facility] EDDE 06:19 02:26 Hospitalization Ordered by Althea Newman MD for Inpatient Admission. Preliminary mw2 diagnosis is Hypertensive heart and chronic kidney disease; Chest pain, unspecified. Bed requested for Telemetry/MedSurg (Inpatient). Status is Inpatient Admission. Condition is Stable. Problem is new. Symptoms have improved. UTI on Admission? No. tw4 06:25 06:19 07/15/2019 02:26 Hospitalization Ordered by Althea Newman MD for Inpatient ja1 Admission. Preliminary diagnosis is Hypertensive heart and chronic kidney disease; Chest pain, unspecified. Bed requested for [facility] ER HOLD. Status is Inpatient Admission. Condition is Stable. Problem is new. Symptoms have improved. UTI on Admission? No. mw2 08:06 06:25 07/15/2019 02:26 Hospitalization Ordered by Althea Newman MD for Inpatient aa5 Admission. Preliminary diagnosis is Hypertensive heart and chronic kidney disease; Chest pain, unspecified. Bed requested for Telemetry/MedSurg (Inpatient). Status is Inpatient Admission. Condition is Stable. Problem is new. Symptoms have improved. UTI on Admission? No. ja1
[2019-07-15] MEDS ORDERED: ENOXAPARIN 80 MG/0.8 ML SQ ONE (02:28)
[2019-07-15] MEDS ORDERED: GLUCAGON 1 MG/VIAL IM PRN (03:26)
[2019-07-15] MEDS ORDERED: D50W 25 GM/50 ML SYRINGE/VIAL IV PRN (03:26)
[2019-07-15] MEDS ORDERED: MORPHINE 2 MG/ML SYR IV PRN (03:26)
[2019-07-15] MEDS ORDERED: ONDANSETRON 4 MG/2 ML VIAL IV PRN (03:26)
[2019-07-15] MEDS ORDERED: ALBUTEROL 2.5 MG/3 ML NEB SOL NEB PRN (03:26)
[2019-07-15] MEDS ORDERED: HYDRALAZINE HCL 20 MG/ML VIAL IV ONE (03:26)
[2019-07-15] MEDS: FUROSEMIDE 40 MG/4 ML VIAL IV SCH ×3 (03:35→16:26)
[2019-07-15] MEDS: NITROGLYCERIN 0.2 MG/HR (5 MG) PATCH TD SCH ×2 (03:36→10:52)
[2019-07-15] MEDS ORDERED: FUROSEMIDE 40 MG/4 ML VIAL ONE (04:40)
--- NOTE | 2019-07-15 05:28 | EKG ---
Test Date: 2019-07-15 Test Time: 01:09:10 [employer] [employer]: MY MEASUREMENT RESULTS: Intervals: Rate: 127 IN: 156 QRSD: 80 QT: 314 QTc: 456 [place]: P: 73 IN: 156 QRS: 52 T: 65 INTERPRETIVE STATEMENTS: Sinus tachycardia Otherwise normal ECG Compared to ECG 11/22/2018 01:48:35 Sinus rhythm no longer present Left ventricular hypertrophy no longer present ST (T wave) deviation no longer present Prolonged QT interval no longer present Electronically Signed On 07-15-19 05:27:20 [employer] by John Archer
[2019-07-15] MEDS ORDERED: HYDRALAZINE HCL 20 MG/ML VIAL ONE (05:29)
[2019-07-15 05:56] LABS: Troponin I 0.12 ng/mL (0.0-0.045)
[2019-07-15] MEDS ORDERED: INSULIN -REGULAR HUMAN 50 UNIT/0.5 ML ML SQ SCH (07:30)
--- NOTE | 2019-07-15 07:35 | HP ---
Date of Admission: 07/15/2019 Presenting Complaint: Substernal chest pain. History Of Present Illness: Ms. Shelley Azul is a 48-year-old female with history of hypertension; diabetes mellitus type 2 since 21 years, on oral hypoglycemic; previous use of insulin in the past; h istory of chronic kidney disease, stage 3-4, who presented because of soft sternal chest pain radiati ng to the throat area radiating to the neck, which woke her up from sleep in night. Patient says vasu guillory was more pressure like. She has similar pain about 2 days which was about 7 which sp ontaneously resolved. She started having intermittent symptoms when she went to sleep, sy mptoms appear to have continuous. She denies any nausea or vomiting. She denies any worsening short ness of breath and feels chest pressure, appear to worsen with deep breathing. In the ED, initial se t of cardiac enzymes were negative. Patient states she has similar pain episode 1-1/2 years ago. No intervention was done for that. She states she has never had stress test done. She reportedly has not had any change in the blood pressure medications. However, she states she is adherent with her b lood pressure meds. She states her occasional blood pressure readings at home range in the 120s to 1 30s. Review of record shows patient had a stress test done 3 years ago that was unremarkable. She h ad a CTA done for similar symptoms 1 year ago that shows no evidence of pulmonary embolism, but suspi cion for pulmonary edema. She denies any body swelling now. Patient is a poor historian. Ex-lorraine melgoza who is present at the bedside is helping patient with history. However, there seems to be conflict ing report from patient and ex-. Past Medical History: Significant for hypertension, hyperlipidemia, diabetes mellitus type 2, chroni c kidney disease stage 3-4, history of anemia of chronic disease, history of GERD. Family History: Significant for diabetes and history of coronary artery disease. Social History: No history of alcohol or illicit drug use. History of 1 month use of tobacco intake 12 years ago. Allergies: NO KNOWN DRUG ALLERGIES. Home Medications: Protonix, metoprolol, NPH insulin, ferrous sulphate, Norvasc, and hydralazine. Review of Systems: All systems reviewed x14 were negative except as mentioned above. Physical Examination: Vital Signs: On presentation, blood pressure was 220/114. Morphine was given. Blood pressure now c urrently 180/85 with respiratory rate of 22, pulse of 83, O2 sat 95% on room air. General: Average built, middle-aged female, appear older than stated age with intermittent crying. HEENT: Head atraumatic, normocephalic. Pupils equal and reactive to light. Extraocular motor movem ents intact. Moist oral mucosa. Neck: No JVD. No carotid bruits. Cardiovascular: S1, S2. Mild soft sternal area tenderness. Respiratory: Good air entry except bibasilar crepitations bilaterally. GI: Abdomen full. Mild epigastric area tenderness. Bowel sounds positive. No suprapubic fullness. No ascites by shifting dullness. Extremities: Trace pedal edema bilaterally. No calf tenderness. Neuro: Patient is alert, oriented, conversant. No neurological focal motor deficit. Laboratory Data: WBC 8.9, hemoglobin 9.3, platelet 304. INR of 0.7. D-dimer 892. Sodium 139, pota ssium 3.9, creatinine 1.76, baseline of 1.5 to 2.2 since this year. Total bili of 0.7, magnesium of 1.7, troponin less then 0.02. BNP of 2470, albumin of 2.9. Chest x-ray shows mild pulmonary congest violet changes. Impression: 1.Atypical chest pain. 2.Hypertensive emergency. 3.Acute pulmonary edema. 4.Presumed acute diastolic congestive heart failure exacerbation. 5.Hypomagnesemia. 6.Chronic kidney disease, stage 4. 7.Elevated D-dimer. 8.Anemia of chronic disease. Plan: We admit patient to telemetry. We will manage patient for the followin.Atypical chest pain likely due to congestive heart failure, possibility of underlying infiltrate c onsidered. Also considered possibility of pulmonary embolism, given elevated D-dimer. We will start patient on Lovenox 1 mg/kg q.12 for now. We will schedule patient for VQ/nuclear medicin e lung scan in a.m. Patient may also benefit from repeat stress test if negative set of cardiac enzy mes. 2.Acute pulmonary edema with marked elevated proBNP. We will start patient on Lasix 40 mg q.12. We will obtain echocardiogram to access ejection fraction. 3.Hypertensive urgency. Unclear adherence of patient with medications. We will start home medicine . We will do IV hydralazine as tolerated. May need adjustment of blood pressure prior to discharge. 4.Anemia of chronic disease, following iron level. 5.Acute kidney injury. Chronic kidney disease stage 3-4 -- patient will put in a consult for Nephro logy for followup. Previous renal sonogram 1 year ago did not show any hydronephrosis. 6.DVT prophylaxis. Follow patient on therapeutic Lovenox. 7.Advanced directive discussed with patient. Patient wished to be full code. EO/MODL Voice ID: [id number]
--- NOTE | 2019-07-15 08:24 | RAD REPORT ---
EXAM DESCRIPTION: RAD - Chest Single View - 07/15/2019 2:06 am CLINICAL HISTORY: CHEST PAIN Chest pain. COMPARISON: Abdomen 1 View (KUB) dated 11/22/2018; Chest Single View dated 11/22/2018; Chest Single View dated 09/23/2017; Chest Pa And Lat (2 Views) dated 09/19/2017 FINDINGS: Portable technique limits examination quality. Mild interstitial prominence is present bilaterally. No focal infiltrate is seen. The heart is upper limit of normal in size. No displaced fractures. IMPRESSION: Mild interstitial opacities are present which probably represent bronchitis or asthma.
--- NOTE | 2019-07-15 08:37 | RAD REPORT ---
EXAM DESCRIPTION: NM - Vent Perfusion VQ Scan - 07/15/2019 7:49 am CLINICAL HISTORY: r/o PE Chest pain, shortness of breath COMPARISON: No comparisons TECHNIQUE: 23.3mCi Xe-133 gas inhaled and 7.2mCi Tc-MAA IV. Planar ventilation scan was performed in posterior projection after Xe-133 gas inhalation (wash-in, e quilibrium, and wash-out phases) followed by perfusion scan with Tc-MAA IV in multiple projections. Examination is correlated with recent chest radiograph. FINDINGS: Normal ventilation with appropriate wash-out and no significant air-trapping. No mismatched segmental perfusion defect. IMPRESSION: Very low probability of acute pulmonary embolism.
[2019-07-15 08:46] VITALS: BMI 34.1
[2019-07-15] MEDS: ENOXAPARIN 80 MG/0.8 ML SQ SCH ×2 (08:56→20:42)
[2019-07-15] MEDS: INSULIN -REGULAR HUMAN 50 UNIT/0.5 ML ML SQ SCH ×4 (08:56→20:42)
--- NOTE | 2019-07-15 10:52 | RAD REPORT ---
EXAM DESCRIPTION: US - Extrem Venous W Compress Marco - 07/15/2019 10:44 am CLINICAL HISTORY: pain Bilateral leg edema and swelling. COMPARISON: No comparisons TECHNIQUE: Real-time sonographic interrogation of the left and right lower extremity deep venous sys tems was performed. FINDINGS: Normal compressibility, flow augmentation, phasic flow and spontaneous flow is identified in both the left and right lower extremity deep venous systems. IMPRESSION: No sonographic evidence of left or right lower extremity deep venous thrombosis.
--- NOTE | 2019-07-15 15:14 | CON ---
Date of Consultation: 07/15/2019 Reason For Consultation: Chest pain. History Of Present Illness: Latha is a 48-year-old woman, has a history of anemia, a nxiety, diabetes, and hypertension. She has a chronic systolic congestive heart failure with an ejec tion fraction of 45% in 2016. Heart catheterization in 2016 showed . She came in with [address] st pain, shortness of breath that lasted about 40 minutes nausea, vomiting, diaphoresis, P ND, orthopnea, pedal edema, palpitations, or syncope. She was found to have a creatinine of 1.76, D- dimer was 892 with negative V/Q scan, a BNP was 2470, blood glucose was 217. Troponin is negative. . She is asymptomatic now. Past Medical History: As stated above. Allergies: NONE. Review of Systems: Negative. Social History: Negative. Family History: Negative. Medications: At home include metoprolol, metformin, clonidine, and hydrochlorothiazide. Physical Examination: General: She was in no acute distress. No symptoms. Vital Signs: Stable, hypertensive at 162/91. HEENT: Negative. Neck: Supple with no bruit. Chest: Clear. Cardiac: Reveals a regular rhythm and rate with S4 gallops. Abdomen: Benign. EXTREMITIES: Revealed no clubbing, cyanosis, or edema. Diagnostic Data: As stated earlier. Impression And Plan: 1.Atypical chest pain and shortness of breath. She has a normal chest x-ray, normal examination, ad mitted dealing more with panic disorder. Her chest pain I am not concerned about. She just had a no rmal catheterization 2 years ago . I do not think she has developed disease. I agree with an echocardiogram that is pending. Renal consultation may be reasonable. Blood pressure may need to be better controlled, as it may be elevated because of her anxiety at this point. 2.Renal insufficiency. 3.Hypertension, poorly controlled. 4.Diabetes, well controlled. 5. , stable. 6.Anxiety disorder. We will see what shows. further cardiac workup at this p oint. I think if her echocardiogram is done, then she can go home whenever it is okay with Dr. Zeinab FLORES/KHOI Voice ID: [id number] Report ID: [id number]
--- NOTE | 2019-07-15 15:41 | CON ---
Date of Consultation: 07/15/2019 Reason For Consultation: Elevated BUN and creatinine. History Of Present Illness: This is a 48-year-old female with significant past medical history of hy pertension; diabetes complicated with neuropathy and no retinopathy, hyperlipidemia, patient known to have a chronic kidney disease stage 3, follows up with physician in [place]. Patient came to the [facility] complaining from chest pain and shortness of breath for the last few days. Upon arrival, blood pressure was stable. Primary workup showed elevation in BUN and creatinine. For that reason, we lin ve been consulted. According to the patient, patient has been taking ibuprofen 400 mg every other da y for the last few months. Patient denied taking any IV contrast or any antibiotic. Reviewing the r ecord for the patient, patient's creatinine back in November of , GFR of 33. Patient had neph rotic range proteinuria. Past Medical History: 1.Diabetes complicated with neuropathy and nephropathy. 2.Hypertension. 3.Hyperlipidemia. 4.Chronic kidney disease, stage 3B with nephrotic range proteinuria. 5.Normal size kidney. 6.Hyperlipidemia. Allergies: NO KNOWN DRUG ALLERGIES. Social History: Occasional smoking. Denies drug abuse. No alcohol. Home Medications: 1.Insulin. 2.Protonix. 3.Metoprolol. 4.Ferrous sulfate. 5.Hydralazine. 6.Norvasc. Review of Systems: Head and Neck: No red eye. No ear pain. GI: No nausea. No vomiting. : No polyuria. No dysuria. No hematuria. 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 Respiratory: Has shortness of breath. Has orthopnea. Cardiovascular: No cyanosis. Patient had chest pain. Neurologic: Has neuropathy. Musculoskeletal: No joint pain. Endocrine: No polydipsia. Physical Examination: Vital Signs: When I saw the patient, blood pressure of 165/74, pulse of 85, afebrile. Chest: Faint rales on the bilateral bases. Heart: S1, S2. Regular. Abdomen: Soft, nontender. Extremities: Trace edema. Neurologic: Alert and oriented x3. No focal. Laboratory Data: Back in November, creatinine with GFR of 33. Current lab data; sodium 139, potassium 3.9, bicarb 34, BUN 21, creatinine 1.7, GFR of 31, calcium 8.6, TSAT of 12, ferritin of 35 . PTH 134. WBC 8.9, H and H 9.4/27.8. PC ratio 3.6 g. Current Medications: The patient on include: 1.Albuterol. 2.Hydralazine 25 b.i.d. 3.Metoprolol. 4.Nitroglycerin. 5.Gabapentin. 6.Lasix. 7.Glimepiride. 8.Morphine. Assessment And Plan: 1.Chronic kidney disease, stage 3B, stable on baseline, over volume with nephrotic range proteinuria mostly secondary to diabetes nephropathy, hypertension, nephrosclerosis. With the presence of the a nemia and nephrotic range proteinuria, light chain disease needs to be ruled out. I am going to go a head and send for serum protein electrophoresis and will send for serology. 2.Hypertension, not controlled. I am going to try to utilize blood pressure for more diuresis. I a gree with the Lasix 40 b.i.d. and we will follow up the response. 3.Secondary hyperparathyroidism. I do not see the need for vitamin D for the time being as calcium and phosphorus in the goal. 4.Iron-deficiency anemia. We will start the patient on IV iron and we will follow up. 5.Coronary artery disease with congestive heart failure. We will follow up with Cardiology. Mikhail coleman on baseline from the kidney standpoint. If the patient needs cardiac cath, the patient on the best timing for the cardiac cath. We will hold on adding any HODA inhibitor until the decision made about the cardiac cath. Otherwise, hopefully we can start the patient on HODA inhibitor or ARB. 6.Diabetes, as by primary. Thank you, Dr. Ramos, for allowing us to . ANNETTE/KHOI Voice ID: [id number] Report ID: [id number]
[2019-07-15] MEDS: GLIMEPIRIDE 2 MG TABLET PO SCH (16:26)
--- NOTE | 2019-07-15 16:26 | PN ---
Date of Progress Note: 07/15/2019 Subjective: Patient seen and examined. Chart reviewed and case discussed with RN. The patient stil l having some intermittent chest tightness. Medications: List reviewed. Physical Examination: Vital Signs: Temperature 98, heart rate 84, blood pressure 174/77, respirations 20, O2 of 95% on janie m air. General: Awake, alert, oriented x3. Obese female, BMI 34. In some mild distress. CV: S1, S2. Regular rate and rhythm. Peripheral pulses present. Respiratory: Moving air well bilaterally. No wheezing or stridor. No use of accessory muscles. Gastrointestinal: Abdomen is soft, nontender, nondistended. Positive bowel sounds. No guarding or rigidity. Extremities: No clubbing, cyanosis, or edema. Neurologic: Cranial nerves 2 through 12 intact grossly. No focal neurological deficit. Speech is n ormal. Laboratory Data: Troponin is less than 0.02, 0.12, 0.14. test negative. WBC 8.9, H and H 9.3, 27.4. D-dimer 892. V/Q scan low probability for PE. Doppler sonogram, no evidence of right o r left lower extremity DVT. Assessment: 1.Atypical chest pain, possibly due to congestive heart failure. Underlying infiltrates on the x-ra y. V/Q scan was negative for pulmonary embolism, showed low probability. Patient is on therapeutic Lovenox. 2.Non-ST elevation myocardial infarction. Patient has elevated cardiac enzymes 0.12, 0.14. Appreci ate Cardiology input. Continue on chest pain guidelines. 3.Hypertensive urgency. We will continue with IV hydralazine p.r.n. Monitor blood pressure closely . 4.Anemia of chronic disease. Iron panel shows iron deficiency. We will continue with oral iron. 5.Hypomagnesemia, replace and monitor. 6.Chronic kidney disease, likely due to diabetic nephropathy. Consult Nephrology. Chronic kidney d isease stage 3. Plan: Cardiology workup. Nephrology consultation. Likely discharge in the next 24-48 hours dependi ng on clinical workup and response. SA/MODL Voice ID: [id number] Report ID: [id number]
[2019-07-15] MEDS: ACETAMINOPHEN 325 MG TABLET PO PRN (16:35)
[2019-07-15] MEDS: GABAPENTIN 100 MG CAP PO SCH (20:41)
[2019-07-15] MEDS: HYDRALAZINE HCL 25 MG TABLET PO SCH (20:41)
[2019-07-15] MEDS: METOPROLOL TAR 50 MG TAB PO SCH (20:41)
--- NOTE | 2019-07-15 21:02 | RAD REPORT ---
EXAM DESCRIPTION: US - Renal Ultrasound-Complete - 07/15/2019 8:26 pm CLINICAL HISTORY: Acute kidney injury COMPARISON: Renal ultrasound November 2018 FINDINGS: The right kidney measures 9.6 x 4.9 x 5.1 cm. The left kidney measures 10.3 x 4.5 x 4.8 c m. Renal cortical thickness and echogenicity are normal. No hydronephrosis or suspicious renal mass. Bladder is partially contracted limiting detail. There is echogenic debris in the lumen. This does no t appear to be mass or stone. IMPRESSION: No hydronephrosis or suspicious renal mass. Suspected echogenic debris in the lumen of the bladder. No bladder wall thickening, mass or stone.
[2019-07-16 06:03] LABS: Absolute Lymphocytes (CBC) 1.5 K/uL (0.7-4.9); Basophils % 0.7 % (0-1.3); Hematocrit 23.9 % (36.0-45.0); MPV 10.6 fL (7.6-11.3); RBC Red Blood Cell Count 2.81 M/uL (3.86-4.86)
[2019-07-16 06:22] LABS: Albumin 2.5 g/dL (3.4-5.0); Bilirubin Total 0.2 mg/dL (0.2-1.0); Phosphorus 3.6 mg/dL (2.5-4.9); Potassium 4.1 mmol/L (3.5-5.1); Thyroid Stimulating Hormone 2.18 uIU/mL (0.360-3.740)
[2019-07-16 07:28] LABS: Urine Appearance CLOUDY; Urine Bilirubin NEGATIVE (NEG); Urine Blood NEGATIVE (NEG); Urine Color YELLOW; Urine Glucose NEGATIVE (NEG); Urine Protein 3+ (NEG); Urine Specific Gravity 1.015 (1.005-1.030); Urine Urobilinogen 0.2 mg/dL (0.2-1.0); Urine pH 5.5 (5.0-7.0)
[2019-07-16 07:30] LABS: Urine Microscopic Reflex ORDER UMIC
[2019-07-16] MEDS: INSULIN -REGULAR HUMAN 50 UNIT/0.5 ML ML SQ SCH ×4 (07:30→21:18)
[2019-07-16] MEDS: GLIMEPIRIDE 2 MG TABLET PO SCH ×2 (08:30→16:37)
[2019-07-16] MEDS: HYDRALAZINE HCL 25 MG TABLET PO SCH ×2 (08:30→21:11)
[2019-07-16] MEDS: METOPROLOL TAR 50 MG TAB PO SCH ×2 (08:30→21:11)
[2019-07-16] MEDS: FUROSEMIDE 40 MG/4 ML VIAL IV SCH (08:30)
[2019-07-16] MEDS: ENOXAPARIN 80 MG/0.8 ML SQ SCH (08:31)
[2019-07-16] MEDS: NITROGLYCERIN 0.2 MG/HR (5 MG) PATCH TD SCH (08:31)
--- NOTE | 2019-07-16 08:32 | ECHO ---
HEIGHT: 5 ft 2 in WEIGHT: 187 lb 6.4 oz DATE OF STUDY: 07/15/[address]: Abraham Townsend MD 2-DIMENSIONAL: YES M.MODE: YES DOPPLER: YES COLOR FLOW: YES TDS: PORTABLE: DEFINITY: BUBBLE STUDY: DIAGNOSIS: CHF CARDIAC HISTORY: CATHERIZATION: NO SURGERY: NO PROSTHETIC VALVE: NO PACEMAKER: NO MEASUREMENTS (cm) DIASTOLIC (NORMALS) SYSTOLIC (NORMALS) IVSd 1.1 (0.6-1.2) LA Diam 4.1 (1.9-4.0) LVEF 55-60% LVIDd 5.2 (3.5-5.7) LVIDs 4.1 (2.0-3.5) LVPWd 1.5 (0.6-1.2) Ao Diam 2.6 (2.0-3.7) 2 DIMENSIONAL ASSESSMENT: RIGHT ATRIUM: NORMAL LEFT ATRIUM: DILATED RIGHT VENTRICLE: NORMAL LEFT VENTRICLE: LEFT VENTRICULAR HYPERTROPHY TRICUSPID VALVE: NORMAL MITRAL VALVE: NORMAL PULMONIC VALVE: NORMAL AORTIC VALVE: NORMAL PERICARDIAL EFFUSION: NONE AORTIC ROOT: NORMAL LEFT VENTRICULAR WALL MOTION: NORMAL DOPPLER/COLOR FLOW: NORMAL COMMENTS: LEFT ATRIUM ENLARGEMENT. LEFT VENTRICULAR HYPERTROPHY. NORMAL LEFT VENTRICULAR EJECTION FRACTION. NO WALL MOTION ABNORMALITY. NO EFFUSION. TECHNOLOGIST: GEOVANI MARTINEZ
[2019-07-16 08:37] LABS: Urine Bacteria >50 /HPF (<20); Urine Culture Reflex Order REFLEXED; Urine RBC <5 /HPF (NONE SEEN)
--- NOTE | 2019-07-16 12:49 | RAD REPORT ---
EXAM DESCRIPTION: RAD - Chest Single View - 07/16/2019 12:41 pm CLINICAL HISTORY: COPD Chest pain. COMPARISON: Chest Single View dated 07/15/2019; Abdomen 1 View (KUB) dated 11/22/2018; Chest Single Vi ew dated 11/22/2018; Chest Single View dated 09/23/2017 FINDINGS: Portable technique limits examination quality. The lungs are grossly clear. The heart is normal in size. No displaced fractures. IMPRESSION: No acute intrathoracic process suspected.
[2019-07-16] MEDS ORDERED: NA CHLORIDE 0.9% 500 ML IV SCH (13:00)
--- NOTE | 2019-07-16 14:24 | PN ---
Date of Progress Note: 07/16/2019 Subjective: Patient was admitted with chest pain, had acute kidney injury. Patient was started on d iuresis, suspecting of over-volume kidney function, slightly worsening. Physical Examination: Vital Signs: Blood pressure 157/74, pulse of 85, afebrile. The patient had good urine output of 800 . Chest: Clear to auscultation. Heart: S1, S2. Regular. Abdomen: Soft, nontender. Extremities: No edema. Laboratory Data: H and H of 8.9/23.9, eosinophil 1.6%, absolute count just 100. Sodium 139, potassi um 4.1, bicarb 24, BUN 46, creatinine 2, GFR 26, calcium 8.1, phosphorus 3.6. Current Medications: The patient on include albuterol, Lovenox, hydralazine, metoprolol 50 b.i.d., g abapentin, normal saline. Assessment And Plan: 1.Acute kidney injury secondary to prerenal/cardiorenal, worsening. I am going to discontinue Lasix , start the patient on gentle hydration, and we will monitor. Obstructive uropathy has been ruled ou t. Patient has normal-size kidney. 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 Light chain disease workup is still pending. Serology is still pending. We will follow up. 3.Hypertension, controlled, optimal. Continue current medication. 4.Chest pain, typical. Cleared by Cardiology. CATHI Voice ID: [id number] Report ID: [id number]
--- NOTE | 2019-07-16 15:08 | PN ---
Date of Progress Note: 07/16/2019 Subjective: Patient seen and examined, chart reviewed, and case discussed with RN and Dr. Buitrago. Patient's chest pain seems to be resolved. No acute events overnight. Medication List: Reviewed. Physical Examination: Vital Signs: Temperature 99, heart rate 78, blood pressure 144/75, respirations 16, O2 97% on room a ir. General: Awake, alert, oriented x3. Does not appear to be any acute distress. Obese female. CV: S1, S2. Regular rate and rhythm. Peripheral pulses present. Respiratory: Moving air well bilaterally. No wheezing or stridor. Gastrointestinal: Abdomen is soft, nontender, nondistended. Positive bowel sounds. Extremities: No clubbing, cyanosis, or edema. Neurologic: Nonfocal. Laboratory Data: Sodium 139, potassium 4.1, chloride 108, CO2 of 24, BUN 46, creatinine 2.03, glucos e 195, calcium 8.1, phosphorus 3.6, AST 42, ALT 72, albumin is 2.5. Lipid panel; triglycerides 151, cholesterol 197, LDL 108, HDL 59. TSH 2.18. WBC 6.5, H and H of 8.2 and 23.9, platelets 244, neutro phils 64%. Hepatitis panel and HIV panel are pending. Immunology panel is also pending. Echocardio gram shows EF of 55% to 60%, left ventricular hypertrophy, no wall motion abnormality. Assessment: 48-year-old female with: 1.Acute coronary syndrome. Patient has elevated cardiac enzymes. Cardiology does not feel that thi s is related to coronary artery blockage. She had normal coronary arteries in 2016, likely related t o her congestive heart failure and hypoxia. V/Q scan showed low probability for pulmonary embolus. Continue with chest pain guidelines. Continue Lovenox. No plans for further intervention. 2.Hypertensive urgency. We will continue with IV hydralazine p.r.n., adjust blood pressure medicati ons. 3.Hypertensive heart disease. Echocardiogram shows left ventricular hypertrophy. 4.Anemia of chronic disease secondary to iron deficiency and due to her chronic medical conditions. Continue with iron supplementation. 5.Hypomagnesemia, replaced. 6.Acute on chronic kidney disease stage 3. We will continue to monitor, adjust Lasix dose. Appreci ate Nephrology input. 7.Obesity, body mass index 34. 8.Elevated liver enzymes, may be related to fatty liver disease. Hep panel is pending. Plan: We will continue to monitor kidney function. Likely discharge in the next 24 to 48 hours depe nding on clinical improvement. /KHOI Voice ID: [id number] Report ID: [id number]
[2019-07-16] MEDS: GABAPENTIN 100 MG CAP PO SCH (21:11)
[2019-07-17 05:57] LABS: Albumin 2.4 g/dL (3.4-5.0); Phosphorus 3.5 mg/dL (2.5-4.9); Potassium 3.9 mmol/L (3.5-5.1)
[2019-07-17] MEDS: INSULIN -REGULAR HUMAN 50 UNIT/0.5 ML ML SQ SCH (07:30)
[2019-07-17] MEDS: METOPROLOL TAR 50 MG TAB PO SCH (08:04)
[2019-07-17] MEDS: HYDRALAZINE HCL 25 MG TABLET PO SCH (08:04)
[2019-07-17] MEDS: GLIMEPIRIDE 2 MG TABLET PO SCH (08:04)
[2019-07-17] MEDS: NITROGLYCERIN 0.2 MG/HR (5 MG) PATCH TD SCH (08:04)
[2019-07-17] MEDS: ACETAMINOPHEN 325 MG TABLET PO PRN (08:05)
[2019-07-17] MEDS ORDERED: ENOXAPARIN 80 MG/0.8 ML SQ SCH (09:00)
[2019-07-17] MEDS ORDERED: INSULIN -REGULAR HUMAN 50 UNIT/0.5 ML ML SQ SCH (09:42)
[2019-07-17 13:18] VITALS: BP 138/63; TEMP 97.9
[2019-07-17 13:18] LABS: Rheumatoid Factor NEG (NEG)
[2019-07-17 13:30] VITALS: O2SAT 96
--- NOTE | 2019-07-17 14:04 | PN ---
Date of Progress Note: 07/17/2019 Subjective: The patient was admitted with acute kidney injury secondary to diabetes nephropathy with nephrotic range proteinuria. After hydration, kidney function started trending back to baseline. Physical Examination: Vital Signs: Blood pressure 157/72, pulse of 78, afebrile. Chest: Clear to auscultation. Heart: S1, S2 regular. Abdomen: Soft, nontender. Extremities: No edema. Laboratory Data: WBC 6.5, H and H 8.2/23.9, platelets 244. Sodium 143, potassium 3.9, bicarb 22, BU N 40, creatinine 1.6 around her baseline, calcium 8.3, phosphorus 3.5, albumin 2.3. PTH 134. Vitami n D still pending. Serum protein electrophoresis still pending. Serology still pending. Assessment And Plan: 1.Acute kidney injury secondary to prerenal with nephrotic range proteinuria, normal size kidney, mo stly secondary to diabetes nephropathy. The acute kidney injury secondary to prerenal, recovered adelina k to baseline. We will continue to monitor. 2.The patient is going to be cleared from the renal standpoint for discharge planning as kidney func tion back to baseline. 3.Hypertension, controlled optimal. Continue current treatment. 4.Urinary tract infection. Culture negative. We will monitor. 5.Nephrotic range of proteinuria secondary to diabetes. Serology and serum protein electrophoresis are still pending. We will follow up as outpatient. 6.Atypical chest pain, cleared by Cardiology. Patient cleared from the renal standpoint to discharge. Follow up in the office in 2 to 3 weeks. CATHI Voice ID: [id number] Report ID: [id number]
--- NOTE | 2019-07-17 20:32 | DS ---
Date of Discharge: 07/17/2019 Consultants: 1.Dr. Townsend with Cardiology. 2.Dr. Buitrago with Nephrology. Procedures: None. Admitting Diagnoses: 1.Chest pain. 2.Acute pulmonary edema. 3.Hypertensive urgency. 4.Anemia of chronic disease. 5.Acute kidney injury. Discharge Diagnoses: 1.Acute coronary syndrome, likely related to congestive heart failure, hypoxia. 2.Hypertensive urgency, improved. 3.Hypertensive heart disease. 4.Anemia of chronic disease secondary to iron deficiency and chronic medical conditions. 5.Hypomagnesemia, replaced. 6.Acute on chronic kidney disease stage 3. 7.Elevated liver enzymes, possibly due to fatty liver disease, counseled. 8.Obesity, body mass index 33. Hospital Course: Patient is a 48-year-old female with past medical history of diabetes, which is not well controlled, comes in with chest pain, uncontrolled blood pressure, and pulmonary edema. This w as thought to be due to diastolic heart failure. She does have some history of chronic kidney diseas e, has been seen in [place] in the past. Her cardiac enzymes were elevated at 0.12 and 0.14. Cardiol ogroe was consulted. She was on chest pain guidelines and Lovenox. D-dimer was also elevated. V/Q sc an was done, which was very low probability of acute pulmonary embolism. She was unable to have CT a ngio due to elevated kidney function. Doppler sonogram was also negative for right lower extremity D VT. Patient's symptoms improved with treatment. She was diuresed. She had improvement in her sympt oms. Patient's blood pressure also improved. Medications were adjusted. Patient was also seen by N ephrology. Workup was sent out for acute versus chronic kidney disease. Her echocardiogram showed h ypertensive heart disease. Her ejection fraction was 55% to 60%. No wall motion abnormality was see n. Overall, patient did well. Her symptoms improved. She was then cleared for discharge from cardi ology and nephrology standpoint. She will need to follow up closely with her primary care physician and to have her diabetes medications adjusted. She will likely need to be placed back on insulin, wh ich she recently stopped. Her mealtime glucose levels are elevated. Patient was counseled regarding diet. Cardiology did not feel strongly that she does not have any major heart failure. Patient als o needs to follow up with Nephrology for her kidney function and to go over the workup, which is curr ently pending. Return to ER for worsening condition. Diet: Diabetic. Activity: As tolerated. Medications: As per medication reconciliation list. Physical Examination: General: Awake, alert, oriented x3. No acute distress. CV: S1, S2. Respiratory: Moving air well bilaterally. Abdomen: Soft, nontender, nondistended. Positive bowel sounds. Extremities: No clubbing, cyanosis, or edema. Neuro: Nonfocal. Total time spent discharging the patient was 38 minutes. /KHOI Voice ID: [id number] Report ID: [id number]
[2019-07-18 15:51] LABS: HIV AG/AB 4TH GEN Non-reactive (Non-reactive)
[2019-07-20 12:32] LABS: Hepatitis C Virus RNA (PCR)log <1.18 log IU/mL
[2019-07-22 14:40] LABS: Vitamin D 1,25-Dihydroxy Total 38 pg/mL (18-72); Vitamin D,1,25-OH2, D2 <8 pg/mL
[2019-07-22 23:41] LABS: Albumin, (SPE) 2.9 g/dL (3.8-4.8); Alpha-1-Globulins 0.3 g/dL (0.2-0.3); Alpha-2-Globulins 0.8 g/dL (0.5-0.9); Gamma Globulins 0.8 g/dL (0.8-1.7); INTERPRETATION REPORT
[2019-07-23 13:09] LABS: HBsAG Nonreactive (Nonreactive)
== END 2019-07-17 13:24 | disposition home or self-care (01) | DRG 292 ==
LOC: ER 01:13 → ERHOLD 05:03 → 2ND 07:51
PROVIDERS: ADMIT Family Medicine; ATTEND Family Medicine
DX: I50.31 Acute diastolic (congestive) heart failure (principal); I24.9 Acute ischemic heart disease, unspecified; I13.0 Hypertensive heart and chronic kidney disease with heart failure and stage 1 through stage 4 chronic kidney disease, or unspecified chronic kidney disease; N17.9 Acute kidney failure, unspecified; N25.81 Secondary hyperparathyroidism of renal origin; N18.3 Chronic kidney disease, stage 3 (moderate); E83.42 Hypomagnesemia; D63.1 Anemia in chronic kidney disease; F41.9 Anxiety disorder, unspecified; E11.21 Type 2 diabetes mellitus with diabetic nephropathy; E11.22 Type 2 diabetes mellitus with diabetic chronic kidney disease; E11.40 Type 2 diabetes mellitus with diabetic neuropathy, unspecified; E78.5 Hyperlipidemia, unspecified; K21.9 Gastro-esophageal reflux disease without esophagitis; D50.9 Iron deficiency anemia, unspecified; R09.02 Hypoxemia; I25.10 Atherosclerotic heart disease of native coronary artery without angina pectoris; E66.9 Obesity, unspecified; K76.0 Fatty (change of) liver, not elsewhere classified; Z68.34 Body mass index [BMI] 34.0-34.9, adult
CPT/HCPCS: 36415; 71045; 76770; 78582; 80048; 80053; 80061; 80069; 80076; 81003; 81015; 82550; 82570; 82652; 82728; 82947; 83540; 83735; 83880; 83970; 84156; 84165; 84443; 84466; 84484; 84550; 84703; 85025; 85379; 85610; 86021; 86038; 86160; 86225; 86317; 86430; 86704; 86706; 87077; 87086; 87088; 87186; 87340; 87389; 87522; 93005; 93306; 93970; 96372; 96374; 96375; 99285; A9540; A9558; J0360; J1650; J1940; J2405; J7040

== ENCOUNTER 2021-01-13 10:02 | Inpatient (IN) | payer OTHER, SELFPAY ==
--- OUTSIDE RECORDS SUMMARY | 2021-01-13 10:04 | XMS REPORT | Continuity of Care Document ---
:1970 Author Organization [facility] t Address [address] [place] [address] Care Team Providers Name Role Phone Jordy LIMON Attending Clinician Pob, Lab Main Attending Clinician Unavailable Problems This patient has no known problems. Allergies, Adverse Reactions, Alerts This patient has no known allergies or adverse reactions. Medications This patient has no known medications. Procedures This patient has no known procedures. Encounters Start End Encounter Admission Attending Care Care Encounter Source Date/Time Date/Time Type Type Clinicians Facility Department ID 2020-12-14 2020-12-14 Telephone [facility] [id number] 00:00:00 00:00:00 Gabrielle Navarro [id number] [place] [id number] [place] [id number] [address] 2020-12-10 2020-12-10 [place] [id number] 00:00:00 00:00:00 Gabrielle Navarro [id number] [place] [id number] [place] [id number] [address] 2020-12-09 2020-12-09 [facility] [id number] 08:28:13 08:28:13 Encounter Gabrielle Navarro [id number] [place] [id number] [place] [id number] 2020-12-09 2020-12-09 [facility] [id number] 08:27:30 08:27:30 Encounter Gabrielle Navarro [id number] [place] [id number] [place] [id number] 2020-12-09 2020-12-09 [facility] [id number] 08:27:18 08:27:18 Encounter Gabrielle Navarro [id number] [place] [id number] [place] [id number] 2020-12-09 2020-12-09 [facility] [id number] 08:26:27 08:26:27 Encounter Gabrielle Navarro [id number] [place] [id number] [place] [id number] 2020-11-26 2020-11-26 [facility] [id number] 11:10:25 23:59:00 Encounter Gabrielle Navarro [id number] [place] [id number] [place] [id number] 2020-11-26 2020-11-26 [employer] Aleida [facility] [id number] 11:11:22 11:26:22 Visit Lab Main Melanie [id number] [place] [id number] [place] [id number] nal [address] Building 2020-11-26 2020-11-26 [facility] [id number] 00:00:00 00:00:00 Gabrielle [place]ton [id number] [place] [id number] [place] [id number] nal 059 Building Results This patient has no known results.
[2021-01-13 10:51] LABS: Absolute Lymphocytes (CBC) 1.1 K/uL (0.7-4.9); Basophils % 0.6 % (0-1.3); Hematocrit 25.2 % (36.0-45.0); MPV 10.3 fL (7.6-11.3); RBC Red Blood Cell Count 3.01 M/uL (3.86-4.86)
[2021-01-13 11:05] LABS: Protime INR 0.93
[2021-01-13 11:12] LABS: ALT/SGPT 19 U/L (12-78); AST/SGOT 13 U/L (15-37); Albumin 3.6 g/dL (3.4-5.0); Alkaline Phosphatase 99 U/L (45-117); BUN Blood Urea Nitrogen 41 mg/dL (7-18); Bicarbonate 18 mmol/L (21-32); Bilirubin Direct < 0.1 mg/dL (0-0.2); Bilirubin Total 0.3 mg/dL (0.2-1.0); Glucose Level 142 mg/dL (74-106); Magnesium 2.1 mg/dL (1.8-2.4); NT PRO-BNP 2935 pg/mL (<125); Potassium 5.5 mmol/L (3.5-5.1); Protein, Total 7.9 g/dL (6.4-8.2); Sodium Level 139 mmol/L (136-145); Troponin (Emerg Dept Use Only) < 0.02 ng/mL (0.0-0.045)
--- NOTE | 2021-01-13 11:39 | RAD REPORT ---
EXAM DESCRIPTION: RAD - Chest Single View - 01/13/2021 11:20 am CLINICAL HISTORY: CHEST PAIN Chest pain. COMPARISON: Chest Single View dated 07/16/2019; Chest Single View dated 07/15/2019; Abdomen 1 View ( KUB) dated 11/22/2018; Chest Single View dated 11/22/2018 FINDINGS: Portable technique limits examination quality. The lungs are grossly clear. The heart is upper limit normal in size. No displaced fractures. IMPRESSION: No acute intrathoracic process suspected.
[2021-01-13] MEDS ORDERED: NA CHLORIDE 0.9% 1,000 ML ONE (12:08)
[2021-01-13 13:21] LABS: Potassium 6.4 mmol/L (3.5-5.1)
[2021-01-13] MEDS ORDERED: ALBUTEROL 2.5 MG/3 ML NEB SOL ONE (13:55)
[2021-01-13] MEDS ORDERED: INSULIN -REGULAR HUMAN 50 UNIT/0.5 ML ML ONE (13:56)
[2021-01-13] MEDS ORDERED: SOD POLYSTYREN SUL 15 GM/60 ML UCUP ONE (13:56)
[2021-01-13] MEDS ORDERED: D50W 25 GM/50 ML SYRINGE IV ONE (13:57)
--- NOTE | 2021-01-13 14:05 | ER ---
Nurse's Notes [facility] Name: Shelley Azul Age: 50 yrs Sex: Female : 1970 Arrival Date: 01/13/2021 Time: 10:09 Bed 14 Private MD: Diagnosis: Chest pain, unspecified;Hyperkalemia Presentation: 01/13 10:15 Chief complaint: Patient states: sent here by PCP for hyperkalemia. States she has been sv having chest pain and bilateral hand numbness for months. Denies urinary symptoms. Coronavirus screen: Client denies travel out of the [place] in the last 14 days. At this time, the client does not indicate any symptoms associated with coronavirus-19. Ebola Screen: No symptoms or risks identified at this time. Risk Assessment: Do you want to hurt yourself or someone else? Patient reports no desire to harm self or others. Onset of symptoms was January 13, 2021. 10:15 Method Of Arrival: Ambulatory sv 10:15 Acuity: UZMA 3 sv 10:42 Initial Sepsis Screen: Does the patient meet any 2 criteria? No. Patient's initial vg1 sepsis screen is negative. Does the patient have a suspected source of infection? No. Patient's initial sepsis screen is negative. Triage Assessment: 10:17 General: Appears in no apparent distress. comfortable, Behavior is calm, cooperative, sv appropriate for age. Neuro: Level of Consciousness is awake, alert, obeys commands, Oriented to person, place, time, situation, Gait is steady. Respiratory: Respiratory effort is even, unlabored. Historical: - Allergies: 10:17 No Known Allergies; sv - Home Meds: 10:45 metformin 1,000 mg Oral tab 2 times per day [Active]; Metoprolol Tartrate Oral vg1 [Active]; Hydralazine Oral [Active]; amlodipine oral [Active]; Novolin 70/30 [place] Sub-Q [Active]; atorvastatin oral oral [Active]; - PMHx: 10:17 Anemia; Anxiety; Diabetes - NIDDM; Hypertension; High Cholesterol; sv - PSHx: 10:17 None; sv - Immunization history:: Client reports receiving the 1st dose of the Covid vaccine. - Social history:: Smoking status: Patient denies any tobacco usage or history of. Screenin:41 Abuse screen: Denies threats or abuse. Nutritional screening: No deficits noted. vg1 Tuberculosis screening: No symptoms or risk factors identified. Fall Risk No fall in past 12 months (0 pts). No secondary diagnosis (0 pts). IV access (20 points). Ambulatory Aid- None/Bed Rest/Nurse Assist (0 pts). Gait- Normal/Bed Rest/Wheelchair (0 pts) Mental Status- Oriented to own ability (0 pts). Total León Fall Scale indicates No Risk (0-24 pts). Assessment: 10:30 General: Appears in no apparent distress. comfortable, Behavior is calm, cooperative. vg1 Pain: Denies pain. Complains of pain in chest Pain currently is 0 out of 10 on a pain scale. Neuro: Level of Consciousness is awake, alert, obeys commands, Oriented to person, place, time, situation. Cardiovascular: Capillary refill < 3 seconds in bilateral fingers Patient's skin is warm and dry. Respiratory: Airway is patent Respiratory effort is even, unlabored, Breath sounds are clear bilaterally. GI: Patient currently denies diarrhea, nausea, vomiting. : No signs and/or symptoms were reported regarding the genitourinary system. EENT: No signs and/or symptoms were reported regarding the EENT system. Derm: Skin is intact, is healthy with good turgor. Musculoskeletal: Circulation, motion, and sensation intact. 11:43 Reassessment: Patient appears in no apparent distress at this time. No changes from vg1 previously documented assessment. Patient and/or family updated on plan of care and expected duration. Pain level reassessed. Patient is alert, oriented x 3, equal unlabored respirations, skin warm/dry/pink. 12:38 Reassessment: Patient appears in no apparent distress at this time. No changes from vg1 previously documented assessment. Patient and/or family updated on plan of care and expected duration. Pain level reassessed. Patient is alert, oriented x 3, equal unlabored respirations, skin warm/dry/pink. 15:07 Reassessment: Patient appears in no apparent distress at this time. No changes from vg1 previously documented assessment. Patient and/or family updated on plan of care and expected duration. Pain level reassessed. Patient is alert, oriented x 3, equal unlabored respirations, skin warm/dry/pink. 15:30 Reassessment: BG 138. vg1 Vital Signs: 10:14 BP 161 / 78 LA Sitting (auto/reg); Pulse 73; Resp 16 S; Pain 5/10; mb4 10:18 Pulse Ox 100% ; Weight 88.9 kg; Height 5 ft. 2 in. (157.48 cm); sv 10:41 BP 152 / 71; Pulse 68; Resp 16; Pulse Ox 100% on R/A; vg1 11:13 BP 153 / 79 LA Sitting (auto/reg); Pulse 67 MON; Pulse Ox 98% on R/A; mb4 11:54 BP 162 / 81 LA Sitting (auto/reg); Pulse 75; Resp 16 S; Pulse Ox 99% on R/A; mb4 12:35 BP 167 / 73; Pulse 68; Resp 18; Pulse Ox 100% on R/A; vg1 13:13 BP 169 / 80; Pulse 71; Pulse Ox 99% on R/A; mb4 14:40 BP 176 / 80 Sitting; Pulse 105; Pulse Ox 99% on R/A; mb4 15:26 BP 165 / 68 Sitting (auto/); Pulse 94; Pulse Ox 96% on R/A; mb4 16:30 Pulse 82; Pulse Ox 97% on R/A; mb4 10:18 Body Mass Index 35.85 (88.90 kg, 157.48 cm) sv ED Course: 10:09 Patient arrived in ED. mr 10:14 Hema Olivo PA is PHCP. jmm 10:14 Abhijit Mckeon MD is Attending Physician. jmm 10:15 Patient has correct armband on for positive identification. Bed in low position. Call mb4 light in reach. Head of bed elevated. Pulse ox on. NIBP on. 10:17 Triage completed. sv 10:23 Priya Schaeffer, RN is Primary Nurse. vg1 10:35 EKG done, by ED staff, reviewed by Hema LEDESMA. mb4 10:36 Initial lab(s) drawn, by nc, sent to lab. Inserted saline lock: 20 gauge in right vg1 antecubital area, using aseptic technique. Blood collected. 10:42 Arm band placed on. vg1 11:20 XRAY Chest (1 view) In Process Unspecified. EDMS 11:41 Basic Metabolic Panel Sent. sv 13:21 Notified Nurse Practitioner and/or Physician Learning Engineer of a critical lab result(s), sv potassium-6.4. 13:22 BMP: repeat after bolus Sent. sv 14:04 Althea Newman MD is Hospitalizing Provider. m 14:25 COVID swab sent to lab. sv 15:26 Bed in low position. Call light in reach. Side rails up X 1. Adult w/ patient. mb4 16:15 IV discontinued, intact, bleeding controlled, No redness/swelling at site. Pressure vg1 dressing applied, IV would not pull or flush. 16:20 Missed attempt(s): 22 gauge in left antecubital area. vg1 16:43 No provider procedures requiring assistance completed. vg1 16:59 Inserted saline lock: 24 gauge in right hand, using aseptic technique. Blood collected. mb4 Administered Medications: 11:52 Drug: NS 0.9% 1000 ml Route: IV; Rate: 1 bolus; Site: right antecubital; vg1 13:00 Follow up: IV Status: Completed infusion; IV Intake: 1000ml vg1 14:00 Drug: D50W 50 ml Route: IVP; Site: right antecubital; vg1 16:37 Follow up: Response: No adverse reaction vg1 14:04 Drug: Insulin Regular Human 10 units {Co-Signature: ld1 (Debbie Magaña RN).} Route: vg1 IVP; Site: right antecubital; 16:37 Follow up: Response: No adverse reaction vg1 14:07 Drug: Albuterol 2.5 mg Route: Inhalation; vg1 14:07 Drug: Albuterol 2.5 mg Route: Inhalation; vg1 14:07 Drug: Albuterol 2.5 mg Route: Inhalation; vg1 14:40 Drug: Kayexalate (polystyrene) 60 grams Route: PO; vg1 16:36 Follow up: Response: No adverse reaction vg1 14:41 Drug: Tylenol 650 mg Route: PO; vg1 16:36 Follow up: Response: No adverse reaction vg1 14:42 Drug: Aspirin Chewable Tablet 324 mg Route: PO; vg1 16:36 Follow up: Response: No adverse reaction vg1 14:50 Drug: Lasix (furosemide) 40 mg Route: IVP; Site: right antecubital; vg1 16:36 Follow up: Response: No adverse reaction vg1 14:55 Drug: Sodium Bicarbonate 2 amp Route: IVP; Site: right antecubital; vg1 16:37 Follow up: Response: No adverse reaction vg1 15:59 Not Given (Patient Refused): Nitro-Bid (nitroglycerin) Ointment 2 % 1 inches vg1 Transdermal once Intake: 13:00 IV: 1000ml; Total: 1000ml. vg1 Outcome: 14:05 Decision to Hospitalize by Provider. mercedes 16:44 Admitted to Tele accompanied by tech, via wheelchair, room 214, with chart, Report vg1 called to TRAVIS Chávez 16:44 Condition: stable 16:44 Instructed on the need for admit. 17:08 Patient left the ED. vg1 Signatures: Dispatcher [employer] Elena Cuellar, Hema Pedersen RN, PA PA jmm Rivera, Mary mr NormanBrittani mb4 Priya Schaeffer RN RN vg1 Debbie Magaña RN ld1
--- NOTE | 2021-01-13 14:05 | EDPHYS ---
Physician Documentation [facility] Name: Shelley Azul Age: 50 yrs Sex: Female : 1970 Arrival Date: 01/13/2021 Time: 10:09 Bed 14 Private MD: ED Physician Abhijit Mckeon HPI: 01/13 10:21 This 50 yrs old Female presents to ER via Ambulatory with complaints of chest jmm pain, abnormal labs. 10:21 Onset: gradually, 1 month(s) ago. The pain does not radiate. Associated signs and jmm symptoms: Pertinent positives: cough. The chest pain is described as aching, sharp. Duration: The patient or guardian reports multiple episodes, the episodes last approximately 30 minute(s). Modifying factors: The symptoms are alleviated by nothing. the symptoms are aggravated by nothing. This is a 50 year old female with a history of anemia, DM. HTN, HLP that presents to the ED with complaints of intermittent chest pain beginning approx 1 month ago. Had appt with Cardiology but unable to be fully evaluated. Appt rescheduled for January. Patient was made aware by pcp of elevated K and told to go to the ER. . Historical: - Allergies: 10:17 No Known Allergies; sv - Home Meds: 10:45 metformin 1,000 mg Oral tab 2 times per day [Active]; Metoprolol Tartrate Oral vg1 [Active]; Hydralazine Oral [Active]; amlodipine oral [Active]; Novolin 70/30 [place] Sub-Q [Active]; atorvastatin oral oral [Active]; - PMHx: 10:17 Anemia; Anxiety; Diabetes - NIDDM; Hypertension; High Cholesterol; sv - PSHx: 10:17 None; sv - Immunization history:: Client reports receiving the 1st dose of the Covid vaccine. - Social history:: Smoking status: Patient denies any tobacco usage or history of. ROS: 10:21 Constitutional: Negative for fever, chills, and weight loss. jmm 10:21 Cardiovascular: Positive for chest pain. 10:21 Respiratory: Positive for cough. 10:21 All other systems are negative. Exam: 10:21 Constitutional: This is a well developed, well nourished patient who is awake, alert, jmm and in no acute distress. Head/Face: atraumatic. Eyes: EOMI, no conjunctival erythema appreciated ENT: Moist Mucus Membranes Neck: Trachea midline, Supple Chest/axilla: Normal chest wall appearance and motion. Cardiovascular: Regular rate and rhythm. No edema appreciated Respiratory: Normal respirations, no respiratory distress appreciated Abdomen/GI: Non distended, soft Back: Normal ROM Skin: General appearance color normal MS/ Extremity: Moves all extremities, no obvious deformities appreciated, no edema noted to the lower extremities Neuro: Awake and alert, normal gait Psych: Behavior is normal, Mood is normal, Patient is cooperative and pleasant Vital Signs: 10:14 BP 161 / 78 LA Sitting (auto/reg); Pulse 73; Resp 16 S; Pain 5/10; mb4 10:18 Pulse Ox 100% ; Weight 88.9 kg; Height 5 ft. 2 in. (157.48 cm); sv 10:41 BP 152 / 71; Pulse 68; Resp 16; Pulse Ox 100% on R/A; vg1 11:13 BP 153 / 79 LA Sitting (auto/reg); Pulse 67 MON; Pulse Ox 98% on R/A; mb4 11:54 BP 162 / 81 LA Sitting (auto/reg); Pulse 75; Resp 16 S; Pulse Ox 99% on R/A; mb4 12:35 BP 167 / 73; Pulse 68; Resp 18; Pulse Ox 100% on R/A; vg1 13:13 BP 169 / 80; Pulse 71; Pulse Ox 99% on R/A; mb4 14:40 BP 176 / 80 Sitting; Pulse 105; Pulse Ox 99% on R/A; mb4 15:26 BP 165 / 68 Sitting (auto/); Pulse 94; Pulse Ox 96% on R/A; mb4 16:30 Pulse 82; Pulse Ox 97% on R/A; mb4 10:18 Body Mass Index 35.85 (88.90 kg, 157.48 cm) sv MDM: 10:27 Patient medically screened. [facility] 14:01 The patient was given aspirin in the Emergency Department. Data reviewed: vital signs, [facility] nurses notes. 14:03 Data reviewed: lab test result(s), radiologic studies, plain films. ED course: I mercedes discussed the patient with Dr. Newman whom accepted the patient for admission. . 01/13 10:21 Order name: Basic Metabolic Panel [facility] 01/13 10:21 Order name: CBC with Diff; Complete Time: 11:13 [facility] 01/13 10:21 Order name: LFT's; Complete Time: :43 [facility] 01/13 10:21 Order name: Magnesium; Complete Time: 11:43 [facility] 01/13 10:21 Order name: NT PRO-BNP; Complete Time: 11:43 [facility] 01/13 10:21 Order name: PT-INR; Complete Time: 11:13 [facility] 01/13 10:21 Order name: Troponin (emerg Dept Use Only); Complete Time: 11:43 [facility] 01/13 10:21 Order name: XRAY Chest (1 view); Complete Time: :43 [facility] 01/13 10:24 Order name: Basic Metabolic Panel; Complete Time: : [facility] 01/13 12:35 Order name: BMP: repeat after bolus [facility] 01/13 12:36 Order name: Basic Metabolic Panel; Complete Time: 13:26 [facility] 01/13 15:37 Order name: Glucose, Ancillary Testing [facility] 01/13 15:46 Order name: SARS-COV-2 RT PCR [facility] 01/13 10:21 Order name: EKG; Complete Time: 10:24 [facility] 01/13 10:21 Order name: Cardiac monitoring; Complete Time: 10:39 [facility] 01/13 10:21 Order name: EKG - Nurse/Tech; Complete Time: 10:39 [facility] 01/13 10:21 Order name: IV Saline Lock; Complete Time: 10:39 [facility] 01/13 10:21 Order name: Labs collected and sent; Complete Time: 10:39 [facility] 01/13 10:21 Order name: O2 Per Protocol; Complete Time: 10:24 [facility] 01/13 10:21 Order name: O2 Sat Monitoring; Complete Time: 10:24 [facility] Administered Medications: 11:52 Drug: NS 0.9% 1000 ml Route: IV; Rate: 1 bolus; Site: right antecubital; vg1 13:00 Follow up: IV Status: Completed infusion; IV Intake: 1000ml vg1 14:00 Drug: D50W 50 ml Route: IVP; Site: right antecubital; vg1 16:37 Follow up: Response: No adverse reaction vg1 14:04 Drug: Insulin Regular Human 10 units {Co-Signature: ld1 (Debbie Magaña RN).} Route: vg1 IVP; Site: right antecubital; 16:37 Follow up: Response: No adverse reaction vg1 14:07 Drug: Albuterol 2.5 mg Route: Inhalation; vg1 14:07 Drug: Albuterol 2.5 mg Route: Inhalation; vg1 14:07 Drug: Albuterol 2.5 mg Route: Inhalation; vg1 14:40 Drug: Kayexalate (polystyrene) 60 grams Route: PO; vg1 16:36 Follow up: Response: No adverse reaction vg1 14:41 Drug: Tylenol 650 mg Route: PO; vg1 16:36 Follow up: Response: No adverse reaction vg1 14:42 Drug: Aspirin Chewable Tablet 324 mg Route: PO; vg1 16:36 Follow up: Response: No adverse reaction vg1 14:50 Drug: Lasix (furosemide) 40 mg Route: IVP; Site: right antecubital; vg1 16:36 Follow up: Response: No adverse reaction vg1 14:55 Drug: Sodium Bicarbonate 2 amp Route: IVP; Site: right antecubital; vg1 16:37 Follow up: Response: No adverse reaction vg1 15:59 Not Given (Patient Refused): Nitro-Bid (nitroglycerin) Ointment 2 % 1 inches vg1 Transdermal once Disposition: 01/14 06:38 Co-signature as Attending Physician, Abhijit Mckeon MD I agree with the assessment and [facility] plan of care. Disposition: 01/13/21 14:05 Hospitalization ordered by Althea Newman for Inpatient Admission. Preliminary diagnosis are Chest pain, unspecified, Hyperkalemia. - Bed requested for Telemetry/MedSurg (Inpatient). - Status is Inpatient Admission. vg1 - Condition is Stable. - Problem is new. - Symptoms are unchanged. Signatures: Dispatcher [employer] GEMINIMS Elena Austin RN Abhijit Castillo MD MD kdr Mickail, Joel, PA PA jmm Martinez, Eric em1 Garcia, Victoria, RN RN vg1 Debbie Magaña RN ld1 Corrections: (The following items were deleted from the chart) 01/13 15:20 14:18 CORONAVIRUS+MR.LAB.BRZ ordered. EDMS EDMS 16:18 14:05 Hospitalization Ordered by Althea Newman MD for Inpatient Admission. Preliminary em1 diagnosis is Chest pain, unspecified; Hyperkalemia. Bed requested for Telemetry/MedSurg (Inpatient). Status is Inpatient Admission. Condition is Stable. Problem is new. Symptoms are unchanged. jmm 17:08 16:18 01/13/2021 14:05 Hospitalization Ordered by Althea Newman MD for Inpatient vg1 Admission. Preliminary diagnosis is Chest pain, unspecified; Hyperkalemia. Bed requested for Telemetry/MedSurg (Inpatient). Status is Inpatient Admission. Condition is Stable. Problem is new. Symptoms are unchanged. em1
[2021-01-13] MEDS ORDERED: NITROGLYCERIN 1 GM PKT TD ONE (14:52)
[2021-01-13] MEDS ORDERED: FUROSEMIDE 40 MG/4 ML VIAL ONE (14:53)
[2021-01-13] MEDS ORDERED: ASPIRIN 81 MG CHEWABLE TABLET ONE (14:53)
[2021-01-13] MEDS ORDERED: ACETAMINOPHEN 325 MG TABLET ONE (14:53)
--- NOTE | 2021-01-13 15:01 | P.HP ---
Certification for Inpatient Patient admitted to: Observation With expected LOS: <2 Midnights Patient will require the following post-hospital care: None Practitioner: I am a practitioner with admitting privileges, knowledge of patient current condition, hospital course, and medical plan of care. Services: Services provided to patient in accordance with Admission requirements found in Title 42 Section 412.3 of the Code of Federal Regulations Patient History Date of Service: 01/13/21 Reason for admission: chest pain History of Present Illness: 50-year-old female with past medical history of hypertension, diabetes type 2 since over 10 years, hyperlipidemia, history of chronic kidney disease-told in [place] that eGFR was 45 minutes/min, history of recurrent hyperkalemia, recently taking off lisinopril due to elevated potassium; presented because of recurrent chest pain. Patient states chest pain is intermittent last 20 at 30 min and then resolve. She has had 2 episodes this week. Recent episode started at this morning. Chest pain consists of pressure in the substernal area, rated at 8 to 10/10, pain is worse with activity, she had seen her blindstitch machine operator Dr. Monson at [facility] last week and was told to have a stress test done next month. She has seen a PCP and noted the potassium was elevated and sent to the ED. On arrival in the ED she was had blood work done with potassium of 5.5. She received 1 L normal saline bolus. Repeat blood work show potassium increased to 6.4. She is getting potassium lowering cocktail now with D50/insulin/sodium bicarb/ski accident. She has been admitted for chest pain rule out ACS and hyperkalemia. Her creatinine knee is elevated at 1.83 She denies prior history of cardiac catheterization. She denies family history of coronary artery disease. She denies any history of heart attack. She denies any tobacco or illicit drug use. Allergies No Known Allergies Allergy (Verified 08/11/17 04:55) Home medications list reviewed: Yes Home Medications: Gabapentin 100 mg PO BEDTIME 07/15/19 Glimepiride 4 mg PO BID 07/15/19 Hydralazine [Apresoline*] 25 mg PO BID 07/15/19 Metformin HCl 1,000 mg PO BID 07/15/19 Metoprolol Tartrate 50 mg PO BID 07/15/19 Amlodipine [Norvasc*] 10 mg PO DAILY #60 tab 07/17/19 - Past Medical/Surgical History Diabetic: Yes -: anxiety -: HTN -: DM2 -: Anemia -: C section - Family History Mother -: Hypertension, Diabetes Father -: Kidney disease - Social History Smoking Status: Never smoker Counseled patient to stop smoking for: less than 10 minutes Smoking therapy provided: No Patient receptive to therapy: No Alcohol use: No CD- Drugs: No Caffeine use: No Place of Residence: Home Review of Systems 10-point ROS is otherwise unremarkable Physical Examination - Physical Exam General: Alert, In no apparent distress, Oriented x3, Obese HEENT: Atraumatic, Normocephalic, PERRLA Neck: Supple, 2+ carotid pulse no bruit, JVD not distended Respiratory: Clear to auscultation bilaterally, Normal air movement, Diminished Cardiovascular: No edema, Normal pulses, Regular rate/rhythm, Normal S1 S2 Capillary refill: <2 Seconds Gastrointestinal: Normal bowel sounds, Soft and benign, Non-distended, No ascites, No tenderness Musculoskeletal: No clubbing, Tenderness Integumentary: No rashes, No breakdown Neurological: Normal gait, Normal speech, Normal strength at 5/5 x4 extr, Normal tone - Studies Laboratory Data (last 24 hrs) 01/13/21 12:45: Sodium 139, Potassium 6.4 H*, BUN 41 H, Creatinine 1.83 H, Glucose 131 H 01/13/21 10:36: PT 10.7, INR 0.93 01/13/21 10:36: WBC 9.00, Hgb 8.6 L, Hct 25.2 L, Plt Count 290 01/13/21 10:36: Sodium 139, Potassium 5.5 H, BUN 41 H, Creatinine 1.93 H, Glucose 142 H, Magnesium 2.1, Total Bilirubin 0.3, AST 13 L, ALT 19, Alkaline Phosphatase 99 Imagings Data: EKG -sinus rhythm of 75 bpm , T wave inversion in lead V5 and v6 Assessment and Plan - Problems (Diagnosis) (1) Hyperkalemia Current Visit: Yes Status: Acute (2) Acute hyperkalemia Current Visit: Yes Status: Acute (3) Acute renal injury Current Visit: No Status: Acute (4) Chest pain, rule out acute myocardial infarction Current Visit: No Status: Acute (5) Diabetes mellitus Current Visit: No Status: Acute Qualifiers: Diabetes mellitus type: type 2 Diabetes mellitus superintendent terminal insulin use: without nursing home use Diabetes mellitus complication status: with unspecified complications (6) HTN (hypertension) Current Visit: No Status: Acute Qualifiers: Hypertension type: essential hypertension Qualified Code(s): I10 - Essential (primary) hypertension - Plan #Chest pain - r/o acute coronary syndrome -possibility of pulmonary embolism also suspected but limited given elevated creatinine -will obtain Dimer -serial sets of cardiac enzymes -Admit to telemetry -Place Nitropaste now -ntg prn # HTN - follow with Nitropaste -resume Toprol and Hydralazine/Norvasc -low salt diet # Hyperkalemia - dose kayexelate/sodium bicarbonate/lasix/NS - start sodium bicarb 650 mg bid - follow repeat BMP # DM - hold metformin for ARF - continue insulin regime # ARF on basleine CKD - obtain renal sono - urine studies for fena - gentle IVF - c/w to hold lisinopril DVT -sc heparin Dispo - possible home in 2 days Discharge Plan: Home - Advance Directives Does patient have a Living Will: No Does patient have a Durable POA for Healthcare: No - Code Status/Comfort Care Code Status Assessed: Yes Code Status: Full Code Physician Review: Patient Assessed, Agree with Above Assessment and Plan
[2021-01-13] MEDS ORDERED: ACETAMINOPHEN 500 MG TAB PO PRN (15:16)
[2021-01-13] MEDS ORDERED: ONDANSETRON 4 MG/2 ML VIAL IV PRN (15:16)
[2021-01-13] MEDS ORDERED: MORPHINE 2 MG/ML SYR IV PRN ×2 (15:16→15:20)
[2021-01-13] MEDS ORDERED: ALBUTEROL 2.5 MG/3 ML NEB SOL NEB PRN (15:16)
[2021-01-13] MEDS ORDERED: HYDRALAZINE HCL 20 MG/ML VIAL IV PRN (15:20)
[2021-01-13] MEDS ORDERED: INSULIN -REGULAR HUMAN 50 UNIT/0.5 ML ML SQ SCH (16:30)
[2021-01-13] MEDS: NITROGLYCERIN 0.2 MG/HR (5 MG) PATCH TD SCH (17:00)
[2021-01-13 17:36] VITALS: O2SAT 97
[2021-01-13 17:39] LABS: Magnesium 1.9 mg/dL (1.8-2.4); Troponin I < 0.02 ng/mL (0.0-0.045)
[2021-01-13 17:52] VITALS: BMI 36.2
[2021-01-13] MEDS: ENOXAPARIN 100 MG/ML SYR SQ SCH (18:00)
[2021-01-13] MEDS ORDERED: GLUCAGON 1 MG/VIAL IM PRN (18:00)
[2021-01-13] MEDS ORDERED: D50W 25 GM/50 ML VIAL IV PRN (18:05)
[2021-01-13] MEDS: NA CHLORIDE 0.9% 1,000 ML IV SCH (18:32)
[2021-01-13] MEDS: GLIMEPIRIDE 2 MG TABLET PO SCH (18:33)
[2021-01-13 18:44] LABS: Potassium 4.5 mmol/L (3.5-5.1)
[2021-01-13] MEDS: INSULIN -REGULAR HUMAN 50 UNIT/0.5 ML ML SQ SCH ×3 (18:45→22:57)
[2021-01-13] MEDS: METOPROLOL TAR 50 MG TAB PO SCH (20:56)
[2021-01-13] MEDS: HYDRALAZINE HCL 25 MG TABLET PO SCH (20:56)
[2021-01-13] MEDS: SODIUM BICARB 325 MG TAB PO SCH (20:56)
[2021-01-13] MEDS: FAMOTIDINE 20 MG TAB PO SCH (20:59)
[2021-01-13] MEDS ORDERED: HOME MED 1 EA UNK (Glimepiride [Glimepiride] 4 MG Tablet) PO SCH (21:00)
[2021-01-14] MEDS: NA CHLORIDE 0.9% 1,000 ML IV SCH ×2 (02:00→03:02)
[2021-01-14 05:57] LABS: Basophils % 0.6 % (0-1.3); Hematocrit 21.5 % (36.0-45.0); Lymphocytes % 12.7 % (15.3-44.8); MPV 10.5 fL (7.6-11.3); RBC Red Blood Cell Count 2.53 M/uL (3.86-4.86)
[2021-01-14 06:07] LABS: Albumin 2.8 g/dL (3.4-5.0); Bilirubin Total 0.2 mg/dL (0.2-1.0); Potassium 4.7 mmol/L (3.5-5.1); Protein, Total 6.2 g/dL (6.4-8.2)
[2021-01-14] MEDS ORDERED: NA CHLORIDE 0.9% 250 ML IV SCH (07:00)
--- NOTE | 2021-01-14 07:13 | P.CNS ---
Date of Consult: 01/14/21 Reason for Consult: Renal failure, Hyperkalemia Requesting Physician: Js Bernard Chief Complaint: Chest pain History of Present Illness: 50F with PMHx of CKD ? stage, w/ reported eGFR of 45 ml/min, Htn on lisinopril, hx or hyperkalemia episodes for which lisinopril was taken off recently, HLD, & DM2, who p/w recurrent chest pain. She was previously seen by Cardiology c/o Dr. Monson & was recommended to undergo cardiac stress testing next month. SCr on admission is 1.8. She is admitted for chest pain, renal failure, & hyperkalemia eval & mngt. Allergies No Known Allergies Allergy (Verified 08/11/17 04:55) Home Medications: Gabapentin 100 mg PO BEDTIME 07/15/19 Glimepiride 4 mg PO BID 07/15/19 Hydralazine [Apresoline*] 25 mg PO BID 07/15/19 Metformin HCl 1,000 mg PO DAILY 07/15/19 Metoprolol Tartrate 50 mg PO BID 07/15/19 Amlodipine [Norvasc*] 10 mg PO DAILY #60 tab 07/17/19 - Past Medical/Surgical History Diabetic: Yes -: anxiety -: HTN -: DM2 -: Anemia -: C section - Family History Mother Medical History: Hypertension, Diabetes Father Medical History: Kidney disease - Social History Smoking Status: Never smoker Alcohol use: No CD- Drugs: No Caffeine use: Yes Place of Residence: Home Review of Systems General: Unremarkable Eyes: Unremarkable ENT: Unremarkable Respiratory: Unremarkable Cardiovascular: Chest Pain Gastrointestinal: Unremarkable Genitourinary: Unremarkable Musculoskeletal: Unremarkable Integumentary: Unremarkable Neurological: Unremarkable Lymphatics: Unremarkable Physical Examination Temp Pulse Resp BP Pulse Ox 98.2 F 76 18 133/64 97 01/14/21 04:00 01/14/21 04:00 01/14/21 04:00 01/14/21 04:00 01/14/21 04:00 General: Alert, In no apparent distress HEENT: Atraumatic, Normocephalic, Mucous membr. moist/pink Neck: Supple Respiratory: Clear to auscultation bilaterally Cardiovascular: No rubs, No murmurs Gastrointestinal: Soft and benign, Non-distended Musculoskeletal: No swelling Integumentary: No rashes Neurological: Normal speech, Normal tone Lymphatics: No axilla or inguinal lymphadenopathy Urinary: Other (No mcdonald) External genitalia: No edema Rectal: Deferred Laboratory Data (last 24 hrs) 01/13/21 12:45: Sodium 139, Potassium 6.4 H*, BUN 41 H, Creatinine 1.83 H, Glucose 131 H 01/13/21 10:36: PT 10.7, INR 0.93 01/13/21 10:36: WBC 9.00, Hgb 8.6 L, Hct 25.2 L, Plt Count 290 01/13/21 10:36: Sodium 139, Potassium 5.5 H, BUN 41 H, Creatinine 1.93 H, Glucose 142 H, Magnesium 2.1, Total Bilirubin 0.3, AST 13 L, ALT 19, Alkaline Phosphatase 99 Conclusions/Impression: # Proteinuric CKD ? 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 Monson Hold lisinopril, will need to resume in the near future # DM2 Mngt per primary team Avoid Metformin unless GFR recovers to above 35 ml/min
[2021-01-14 07:29] LABS: RBC Red Blood Cell Count 2.49 M/uL (3.86-4.86)
[2021-01-14] MEDS: INSULIN -REGULAR HUMAN 50 UNIT/0.5 ML ML SQ SCH ×4 (07:30→20:43)
--- NOTE | 2021-01-14 07:52 | EKG ---
Test Date: 2021-01-13 Test Time: 10:32:06 Surg Physician Asst: GIOVANNA MEASUREMENT RESULTS: Intervals: Rate: 75 [place]: 162 QRSD: 78 QT: 390 QTc: 435 [place]: P: 38 [place]: 162 QRS: -19 T: 144 INTERPRETIVE STATEMENTS: Normal sinus rhythm Septal infarct, age undetermined ST & T wave abnormality, consider lateral ischemia Abnormal ECG Compared to ECG 07/15/2019 01:09:10 Myocardial infarct finding now present ST (T wave) deviation now present Possible ischemia now present Sinus tachycardia no longer present Electronically Signed On 01-14-21 07:51:33 CDT by Abraham Townsend
[2021-01-14 08:54] LABS: Ferritin 23.6 ng/mL (8-388)
[2021-01-14] MEDS: METOPROLOL TAR 50 MG TAB PO SCH (09:31)
[2021-01-14] MEDS: FAMOTIDINE 20 MG TAB PO SCH ×2 (09:31→20:15)
[2021-01-14] MEDS: HYDRALAZINE HCL 25 MG TABLET PO SCH ×2 (09:32→20:15)
[2021-01-14] MEDS: GLIMEPIRIDE 2 MG TABLET PO SCH ×2 (09:32→17:31)
[2021-01-14] MEDS: AMLODIPINE 10 MG TAB PO SCH (09:32)
[2021-01-14] MEDS: SODIUM BICARB 325 MG TAB PO SCH ×2 (09:32→20:15)
[2021-01-14] MEDS: NITROGLYCERIN 0.2 MG/HR (5 MG) PATCH TD SCH (12:00)
--- NOTE | 2021-01-14 12:01 | RAD REPORT ---
EXAM DESCRIPTION: US - Extrem Venous W Compress Marco - 01/14/2021 11:50 am CLINICAL HISTORY: r/o DVT Bilateral leg edema and swelling. COMPARISON: <Comparisons> TECHNIQUE: Real-time sonographic interrogation of the left and right lower extremity deep venous sys tems was performed. FINDINGS: Normal compressibility, flow augmentation, phasic flow and spontaneous flow is identified in both the left and right lower extremity deep venous systems. IMPRESSION: No sonographic evidence of left or right lower extremity deep venous thrombosis.
--- NOTE | 2021-01-14 12:01 | RAD REPORT ---
EXAM DESCRIPTION: US - Renal Ultrasound-Complete - 01/14/2021 11:51 am CLINICAL HISTORY: assess for ckd changes urinary obstruction Flank pain COMPARISON: Extrem Venous W Compress Marco dated 07/15/2019Renal Ultrasound-Complete dated 07/15/2019 FINDINGS: Both kidneys are normal in size, shape and echotexture. The right kidney measures 10.1 x 5.7 x 5.6 cm. No hydronephrosis, focal mass or perinephric fluid. The left kidney measures 9.6 x 5.3 x 4.9 cm. No hydronephrosis, focal mass or perinephric fluid. The urinary bladder is incompletely distended without gross abnormality seen. IMPRESSION: Unremarkable renal sonogram.
--- NOTE | 2021-01-14 15:43 | P.PN ---
Subjective Date of Service: 01/14/21 Chief Complaint: Chest pain Subjective: No new changes (no acute events overnight. d-dimer elevated, pt reports intermittent chest pain, no SOB at rest, but [facility] reports recent cardiac workup (stress test, echo) - was told something was off but doesn't remember exactly, and started on aspirin and statin) Review of Systems 10-point ROS is otherwise unremarkable Physical Examination - Vital Signs Temperature: 97 F Blood Pressure: 194/83 Pulse: 67 Respirations: 18 Pulse Ox (%): 100 Assessment & Plan Physician Review Additional Text: Physical Exam Gen: AAOx3, NAD General: Alert, In no apparent distress, Oriented x3, Obese HEENT: Atraumatic, Normocephalic, PERRLA Pulm: CTAB, nonlabored CV: regular rate/rhythm, no murmur, no edema Abd: soft, NTND Msk: no tenderness/joint swelling Neuro normal strength, normal affect Problem list Chest Pain Hyperkalemia Acute renal failure, CKD 3 Diabetes mellitus type 2, non-insulin dependent elevated d-dimer Hypertension acute on chronic anemia Anxiety -r/o ACS, pt reports recent workup with ekg, echo, stress test in [place] ~1-2 months ago, on aspirin/statin -trop negative, cardiology consulted -d-dimer elevated, b/l venous U/S ordered, V/Q scan ordered -continue telemetry -continue toprol, hydralazine/norvasc -nephrology consulted for hyperkalemia, ?LINDA on CKD, possibly at baseline -pt states kidney issues are due to "having diabetes for 20 years" -acute on chronic anemia - pt denies h/o anemia, review of EMR reveals longstanding, will obtain workup Code: full Dispo: anticipate dc home in 1-2 days Time Spent Managing Pts Care (In Minutes): 35
[2021-01-14] MEDS: ENOXAPARIN 100 MG/ML SYR SQ SCH (17:00)
[2021-01-14] MEDS: carvediloL 12.5 MG TAB PO SCH (17:31)
[2021-01-14 19:39] LABS: Hematocrit 24.1 % (36.0-45.0)
[2021-01-14] MEDS: FERROUS SULFATE 325 MG TAB PO SCH (20:15)
[2021-01-15] MEDS: carvediloL 12.5 MG TAB PO SCH (05:31)
[2021-01-15 05:38] LABS: Absolute Lymphocytes (CBC) 1.4 K/uL (0.7-4.9); Hematocrit 24.2 % (36.0-45.0); Lymphocytes % 20.1 % (15.3-44.8); MPV 10.8 fL (7.6-11.3); RBC Red Blood Cell Count 2.84 M/uL (3.86-4.86)
[2021-01-15 05:55] LABS: Albumin 3.1 g/dL (3.4-5.0); Phosphorus 3.7 mg/dL (2.5-4.9); Potassium 4.3 mmol/L (3.5-5.1)
[2021-01-15] MEDS: INSULIN -REGULAR HUMAN 50 UNIT/0.5 ML ML SQ SCH ×2 (07:30→12:18)
[2021-01-15] MEDS: FAMOTIDINE 20 MG TAB PO SCH (08:48)
[2021-01-15] MEDS: SODIUM BICARB 325 MG TAB PO SCH (08:48)
[2021-01-15] MEDS: HYDRALAZINE HCL 25 MG TABLET PO SCH (08:49)
[2021-01-15] MEDS: FERROUS SULFATE 325 MG TAB PO SCH (08:49)
[2021-01-15] MEDS: AMLODIPINE 10 MG TAB PO SCH (08:49)
[2021-01-15] MEDS: GLIMEPIRIDE 2 MG TABLET PO SCH (08:49)
[2021-01-15] MEDS: NITROGLYCERIN 0.2 MG/HR (5 MG) PATCH TD SCH (08:56)
[2021-01-15] MEDS ORDERED: CALCITROL 0.25 MCG CAP PO SCH (09:00)
[2021-01-15] MEDS ORDERED: HYDRALAZINE HCL 25 MG TABLET PO SCH (14:00)
--- NOTE | 2021-01-15 14:00 | CON ---
Date of Consultation: 01/14/[address] Bernard on 01/13/2021 with chest pain and hypertension. I saw the patient on 01/14/2021 . History Of Present Illness: Ms. Azul is a 50-year-old female admitted with chest pain, associated with some cough, nausea, diuresis, PND, orthopnea, pedal edema, palpitation and syncope. has had some cardiac workup in [place] and was told to go back and see them after her damion ting because of some abnormalities. It was not clear or stress test. Nevertheless, the p atient is feeling better now. Past Medical History: Include diabetes, hypertension, dyslipidemia and anemia. Allergies: NONE. Review of Systems: Negative DICTATION ENDS HERE. MARK/KHOI Voice ID: [id number] Report ID: [id number]
--- NOTE | 2021-01-15 14:00 | CON ---
Continuation: Physical Examination: Vital Signs: Stable. She was afebrile. She was in sinus rhythm. HEENT: Negative. Neck: Supple with no bruit. Chest: Clear to auscultation and percussion. Cardiac: Reveals a regular rhythm and rate. No murmurs, gallops or rubs. Abdomen: Benign. Extremities: Revealed no clubbing, cyanosis, or edema. Diagnostic Data: Creatinine is 1.8. Her hemoglobin was 6.9. Her D-dimer was 3283. Her glucose was 202. Impression And Plan: The patient with diabetes, hypertension, dyslipidemia, anxiety, severe anemia t hat needs to be addressed. Abnormal testing for her heart in [place] by Dr. Spence without any followu p. I will continue her present regimen and of her anemia. No need for any invasive workup at this p oint. However, she may sound like she may need a heart catheterization. She does have significant r enal insufficiency, which we have to be careful with. I think Nephrology should be involved in her c are, but I would continue her present regimen, which is very appropriate. If she does go home, we wi ll see her in the office as an outpatient. I will try to get the records from [place] regarding her cardiac testing over there. She did have a heart catheterization here that was normal in 2016. MARK/KHOI Voice ID: [id number] Report ID: [id number]
--- NOTE | 2021-01-15 16:16 | PN ---
Date of Progress Note: 01/15/2021 Subjective: The patient was admitted with acute kidney injury on chronic kidney disease. The patient's poor compliance. Objective: Vital Signs: Blood pressure 167/77, pulse of 77, afebrile. The patient had good urine output of 1600, positive of 1200. Chest: Clear to auscultation. Heart: S1, S2 regular. Abdomen: Soft, nontender. Extremities: Trace edema. Neuro: Alert and oriented x3. No focal. Laboratory Data: WBC 7.8, H and H 7.9/24.2. Sodium 143, potassium 4.3, bicarb 24, BUN 31, creatinine 1.9, calcium 8.2, phosphorus 3.7, albumin 3.1. Corrected calcium is 9. PTH is 234. PC ratio is still pending. Renal ultrasound showing normal size kidney 10.1 and 9.6. Current Medications: The patient on include: 1. Albuterol. 2. Lovenox. 3. Amlodipine 10. 4. Carvedilol 12.5. 5. Nitroglycerin. 6. Sodium bicarb 1300 b.i.d. 7. Pepcid. 8. Calcitriol 0.25. Assessment And Plan: 1. Acute kidney injury on chronic kidney disease, mostly progression of her disease, normal size kidney with nephrotic range of proteinuria with the presence of anemia. The patient had serum protein electrophoresis, was done before foot wound, did not show any M-spike. I going to go ahead and repeat quantification of the protein creatinine ratio and we will monitor the patient. The patient looked to me. This maybe her new baseline. The patient is going to need to be challenged with HODA inhibitor or ARB for her protein urea. 2. Hypertension, not controlled with the presence of nephrotic range of proteinuria. The patient is going to be a good candidate for HODA inhibitor or ARB, but with the presence of hyperkalemia, we will hold for the time being. 3. Hyperkalemia secondary to renal failure, superimposed with HODA inhibitor on recovery, resolved. 4. Acidosis, corrected. I am going to decrease the bicarb to 650 and we will follow up. 5. Diabetes as by primary. 6. Chest pain as by Cardiology. time spend discussing with patient exam the patient face to face , reviewing the data, placing order , discussing with other tractor driver teamster including nursing staff , discussing with hospitalist and other lifestyle consultant 45 min CATHI Voice ID: [id number] Report ID: [id number] PERLITA
[2021-01-15 16:36] VITALS: BP 159/71; TEMP 97.8
--- NOTE | 2021-01-15 17:04 | P.DS ---
Admission Date: 01/13/21 Discharge Date: 01/15/21 Disposition: ROUTINE DISCHARGE Discharge Condition: GOOD Reason for Admission: Chest pain Consultations: Cardiology - Dr. Townsend Nephrology - Cecilia Phillips Procedures: CXR (01/13): The lungs are grossly clear. The heart is upper limit normal in size. No displaced fractures. IMPRESSION: No acute intrathoracic process suspected. Extremity Venous U/S (01/14): Normal compressibility, flow augmentation, phasic flow and spontaneous flow is identified in both the left and right lower extremity deep venous systems. IMPRESSION: No sonographic evidence of left or right lower extremity deep venous thrombosis. Renal U/S (01/14): Both kidneys are normal in size, shape and echotexture. The right kidney measures 10.1 x 5.7 x 5.6 cm. No hydronephrosis, focal mass or perinephric fluid. The left kidney measures 9.6 x 5.3 x 4.9 cm. No hydronephrosis, focal mass or perinephric fluid. The urinary bladder is incompletely distended without gross abnormality seen. IMPRESSION: Unremarkable renal sonogram. 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 Patient states chest pain is intermittent last 20 at 30 min and then resolve. She has had 2 episodes this week. Recent episode started at this morning. Chest pain consists of pressure in the substernal area, rated at 8 to 10/10, pain is worse with activity, she had seen her assistant librarian Dr. Monson at [facility] last week and was told to have a stress test done next month. She has seen a PCP and noted the potassium was elevated and sent to the ED. On arrival in the ED she was had blood work done with potassium of 5.5. She received 1 L normal saline bolus. Repeat blood work show potassium increased to 6.4. She is getting potassium lowering cocktail now with D50/insulin/sodium bicarb/ski accident. She has been admitted for chest pain rule out ACS and hyperkalemia. Her creatinine knee is elevated at 1.83 She denies prior history of cardiac catheterization. She denies family history of coronary artery disease. She denies any history of heart attack. She denies any tobacco or illicit drug use. Hospital Course: Troponin were trended and remained negative. Chest pain resolved. Cardiology consulted and recommended continuation of workup as outpatient. She was set up with an appointment in the next week. She was noted to be anemic in low 8s, subsequently dropped <7 with IVF hydration and lab draws. Workup revealed iron deficiency anemia. She was transfused 1u PRBCs. She was started on Iron. She initially denied any history of anemia, however, afterwards stated she was told to take iron ~3-4 years ago and stopped after 1 month. She denied any dark stools. She was advised to f/u with GI in the next months for further evaluation, may have some malabsorption. 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 patient was treated with bicarb. Likely at new baseline. Patient is to follow up in ~2 weeks. Metformin was discontinued given her low GFR. HTN - uncontrolled, BP meds adjusted - metoprolol changed to carvedilol, hydralazine increased, norvasc continued, and reiterated to not take ACEI Patient was found to have vitamin D deficiency, with elevated PTH > 200. She was discharged with prescriptions for VitD and caicitrol. Vital Signs/Physical Exam: Physical Exam Gen: AAOx3, NAD General: Alert, In no apparent distress, Oriented x3, Obese HEENT: Atraumatic, Normocephalic, PERRL, sclera anicteric, normal conjunctiva Pulm: CTAB, nonlabored on room air CV: regular rate/rhythm, no murmur, no edema Abd: soft, NTND Msk: no tenderness/joint swelling Neuro normal strength, normal affect Temp Pulse Resp BP Pulse Ox 97.8 F 65 16 159/71 H 97 01/15/21 16:00 01/15/21 16:00 01/15/21 16:00 01/15/21 16:00 01/15/21 16:00 Laboratory Data at Discharge: WBC 7.00 K/uL (4.3-10.9) 01/15/21 05:11 Hgb 7.9 g/dL (12.0-15.0) L 01/15/21 05:11 Hct 24.2 % (36.0-45.0) L 01/15/21 05:11 Plt Count 254 K/uL (152-406) 01/15/21 05:11 PT 10.7 SECONDS (9.5-12.5) 01/13/21 10:36 INR 0.93 01/13/21 10:36 Sodium 143 mmol/L (136-145) 01/15/21 05:13 Potassium 4.3 mmol/L (3.5-5.1) 01/15/21 05:13 BUN 31 mg/dL (7-18) H 01/15/21 05:13 Creatinine 1.93 mg/dL (0.55-1.3) H 01/15/21 05:13 Glucose 106 mg/dL (74-106) 01/15/21 05:13 Phosphorus 3.7 mg/dL (2.5-4.9) 01/15/21 05:13 Magnesium 2.0 mg/dL (1.8-2.4) 01/15/21 15:28 Total Bilirubin 0.2 mg/dL (0.2-1.0) 01/14/21 05:25 AST 11 U/L (15-37) L 01/14/21 05:25 ALT 15 U/L (12-78) 01/14/21 05:25 Alkaline Phosphatase 73 U/L (45-117) 01/14/21 05:25 Troponin I < 0.02 ng/mL (0.0-0.045) 01/13/21 21:05 Triglycerides 76 mg/dL (<150) 01/14/21 05:25 Cholesterol 110 mg/dL (<200) 01/14/21 05:25 HDL Cholesterol 59 mg/dL (40-60) 01/14/21 05:25 Cholesterol/HDL Ratio 1.86 01/14/21 05:25 Home Medications: Gabapentin 100 mg PO BEDTIME 07/15/19 Glimepiride 4 mg PO BID 07/15/19 Amlodipine [Norvasc*] 10 mg PO DAILY #60 tab 07/17/19 Calcitrol [Rocaltrol*] 0.25 mcg PO SEECOM 60 Days #30 cap 01/15/21 Cholecalciferol (Vitamin D3) [Dialyvite Vitamin D3 Max] 50,000 unit PO SEECOM 84 Days #12 tablet 01/15/21 Ferrous Sulfate [Ferrous Sulfate*] 325 mg PO BID 30 Days #60 tab 01/15/21 Hydralazine HCl 50 mg PO TID 30 Days #90 tablet 01/15/21 Na Bicarb Tab [Sodium Bicarb 325 MG Tab*] 650 mg PO BID 30 Days #60 tab 01/15/21 carvediloL [Coreg*] 25 mg PO BID 6AM 6PM 30 Days #60 tab 01/15/21 New Medications: carvediloL [Coreg*] 25 mg PO BID 6AM 6PM 30 Days #60 tab Cholecalciferol (Vitamin D3) [Dialyvite Vitamin D3 Max] 50,000 unit PO SEECOM 84 Days #12 tablet Ferrous Sulfate [Ferrous Sulfate*] 325 mg PO BID 30 Days #60 tab Hydralazine HCl 50 mg PO TID 30 Days #90 tablet Calcitrol [Rocaltrol*] 0.25 mcg PO SEECOM 60 Days #30 cap Na Bicarb Tab [Sodium Bicarb 325 MG Tab*] 650 mg PO BID 30 Days #60 tab Physician Discharge Instructions: PROBLEM: Chest Pain, hyperkalemia GOAL: Clear understanding of disease process INSTRUCTIONS: Diet: diabetic Activity: As tolerated If you have any questions regarding your stay call [phone] If your symptoms worsen call 911 or go to the ED. Your chest pain may have been due to your anemia and blood pressure. Your EKG and cardiac enzymes (troponin) were normal. You did not have a heart attack. You were found to be anemic with your hemoglobin down to 7.0. You were given 1 unit of blood. Your kidney disease and low iron are likely what is causing your anemia. You are prescribed iron. You were also found to be low on vitamin D, and prescribed Vitamin D and calcium. Your blood pressure was elevated and your medications were changed to have better control. Follow up with your PCP in 3-5 days. Follow up with Cardiology on Sunday as scheduled. Follow up with Nephrology - Dr. Brooks / [place] in ~2 weeks. With your iron deficiency anemia and low vitamin D, you may not be absorbing these very well. Please follow up with a GI (gastroenterology) doctor in the next few weeks for further evaluation. Diet: ADA Activity: Ad lisa Followup: Eric Buitrago MD [ACTIVE - CAN ADMIT] - (Call to make an appointment. ) Abraham Townsend MD [ACTIVE - CAN ADMIT] - () NONE,NONE [Primary Care Provider] - Time spent managing pt's care (in minutes): 50
[2021-01-15 17:11] LABS: Urine Appearance CLOUDY (Clear); Urine Bilirubin NEGATIVE (Negative); Urine Blood NEGATIVE (Negative); Urine Color YELLOW (Yellow); Urine Glucose TRACE (Negative); Urine Protein 3+ (Negative); Urine Urobilinogen 0.2 mg/dL (0.2-1.0)
[2021-01-15 17:19] LABS: Urine Protein/Creatinine Ratio 4.23 ratio (<0.15)
[2021-01-15 17:44] LABS: Urine Bacteria 20-50 /HPF (<20); Urine RBC <5 /HPF (NONE SEEN)
[2021-01-15] MEDS ORDERED: carvediloL 12.5 MG TAB PO SCH (18:00)
[2021-01-15] MEDS ORDERED: SODIUM BICARB 325 MG TAB PO SCH (21:00)
[2021-01-17 00:11] LABS: RPR (Rapid Plasma Reagin) NON-REACT (NON-REACT)
== END 2021-01-15 17:27 | disposition home or self-care (01) | DRG 812 ==
LOC: ER 10:02 → ERHOLD 15:44 → 2ND 16:44
PROVIDERS: ADMIT Hospitalist; ATTEND Internal Medicine
PROC: 30233N1 Transfusion of Nonautologous Red Blood Cells into Peripheral Vein, Percutaneous Approach (ICD-10-PCS; principal; 2021-01-14)
DX: D50.9 Iron deficiency anemia, unspecified (principal); N17.9 Acute kidney failure, unspecified; E87.2 Acidosis; R07.9 Chest pain, unspecified; I12.9 Hypertensive chronic kidney disease with stage 1 through stage 4 chronic kidney disease, or unspecified chronic kidney disease; E11.22 Type 2 diabetes mellitus with diabetic chronic kidney disease; N18.30 Chronic kidney disease, stage 3 unspecified; E55.9 Vitamin D deficiency, unspecified; F41.9 Anxiety disorder, unspecified; E87.5 Hyperkalemia; R79.9 Abnormal finding of blood chemistry, unspecified; E66.9 Obesity, unspecified; Z68.36 Body mass index [BMI] 36.0-36.9, adult; Z20.822 Contact with and (suspected) exposure to COVID-19
CPT/HCPCS: 36415; 36430; 71045; 76770; 80048; 80053; 80061; 80069; 80076; 81001; 82306; 82570; 82607; 82728; 82947; 83010; 83036; 83540; 83615; 83735; 83880; 83883; 83935; 83970; 84132; 84156; 84300; 84443; 84466; 84484; 85014; 85018; 85025; 85044; 85379; 85610; 86334; 86592; 86850; 86900; 86901; 87077; 87086; 87088; 87186; 93005; 93970; 96361; 96374; 96375; 99285; J1650; J1940; J7030; J7050; P9016; U0003

== ENCOUNTER 2024-04-13 12:20 | Emergency (ER) | payer BC, OTHER ==
--- OUTSIDE RECORDS SUMMARY | 2024-04-13 12:27 | XMS REPORT | Continuity of Care Document ---
Author Name Unknown Address [address] [facility] [address] [place] [address] [facility] Address [address] 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 Role Phone Dl Pozo Primary Care Physician [phone] Dl Pozo Attending Clinician Unavailable Ani Johnson Attending Clinician Unavailable GABRIELLE BUSTILLO Attending Clinician Unavailable Gabrielle Bustillo MD Attending Clinician [phone] Gabrielle Bustillo MD Attending Clinician [phone] Doctor Unassigned, [employer] Attending Clinician U Lorne Marks MD Attending Clinician [phone] ROBBI VICENTE Attending Clinician Unavailable ROBBI VICENTE Attending Clinician Unavailable LORNE MCLAIN Attending Clinician Unavailable KAYDEN HOLT Attending Clinician Unavailable Kayden Holt MD Attending Clinician [phone] ANGELINA SANTIAGO Attending Clinician UnavailAngelina Valenzuela DO Attending Clinician [phone] Pob, [facility] Main Attending Clinician UnavailJohn Peterson MD Jack Attending Clinician + [phone] JOHN ATKINSON JACK Attending Clinician UnavailKevin Medina MD Attending Clinician KEVIN FRANCIS Attending Clinician Unavailabl e 2, [facility] Attending Clinician Unavailable Aislinn Cornell RN Attending Clinician Raad Rose MD Attending Clinician [phone] IWONA GABRIELLE Admitting Clinician Unavailable ROBBI VICENTE Admitting Clinician Unavailable KAYDEN HLOT Admitting Clinician Unavailable ANGELINA SANTIAGO Admitting Clinician UnavailRaad Ceron MD Admitting Clinician [phone] Payers Payer Name Policy Type Policy Number Effective Date Expirati on Date Source [facility] 6 [id number] 2023 00:00:00 [facility] Problems Condition Name Condition Details Condition Category Status Onset Date Resolution Date Last Treatment Date Treating Clinician Comments Source Chronic heart failure with preserved ejection fraction Chronic heart failure with preserved ejection fraction Disease Active 2020-08 00:00: 00 [facility] Abnormal nuclear cardiac imaging test Abnormal nuclear cardiac imaging test Disease Active 2020-08 00:00: 00 [facility] CHF (congestiv e heart failure), NYHA class I, acute on chronic, combined CHF (congestiv e heart failure), NYHA class I, acute on chronic, combined Disease Active 01-25 00:00: 00 [facility] Dyslipidem ia Dyslipidem ia Disease Active 01-25 00:00: 00 [facility] 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 Disease Active 01-24 00:00: 00 [facility] Genital warts Genital warts Disease Active 09-20 00:00: 00 [facility] Acid reflux Acid reflux Disease Active 2014-08 00:00: 00 [facility] 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 + HPV - refer for colpo [facility] Cervical high risk human papillomav irus (HPV) DNA test positive Cervical high risk human papillomav irus (HPV) DNA test positive Disease Active 04-06 00:00: 00 Overview: Formattin g of this note might be different from the original. ASCUS pap - refer for colpo [facility] Tubal ligation status Tubal ligation status Disease Active 03-27 00:00: 00 [facility] [id number] Encounter for examinatio n of eyes and vision without abnormal findings Problem [facility] Hyperlipid aemia Hyperlipem ia Problem [facility] [id number] Type 2 diabetes mellitus with diabetic chronic kidney disease Problem [facility] [id number] CKD (chronic kidney disease) stage 4, GFR 15-29 ml/min Problem [facility] [id number] Other obesity due to excess calories Problem [facility] [id number] Type 2 diabetes mellitus with other diabetic kidney complicati on Problem [facility] [id number] Body mass index [BMI] 34.0-34.9, adult Problem [facility] Vitamin D deficiency Vitamin D deficiency Problem [facility] [id number] Type 2 diabetes mellitus without complicati ons Problem [facility] Chronic diastolic heart failure Chronic diastolic (congestiv e) heart failure Problem [facility] [id number] Primary hypertensi on Problem [facility] [id number] senior living (current) use of insulin Problem [facility] [id number] Type 2 diabetes mellitus with hyperglyce raisa Problem [facility] Abdominal pain, epigastric Abdominal pain, epigastric Disease Resolve d 2014-08 00:00: 00 2016-09-20 00:00:00 2016-09-20 09:10:23 [facility] Allergies, Adverse Reactions, Alerts Allergy Name Allergy Type Status Severity Reaction(s) Onset Date Inactive Date Treating Clinician Comments Source NO KNOWN ALLERGIE S Drug Class Active [facility] Social History Social Habit Start Date Stop Date Quantity Comments Source History of tobacco use 2010-03-27 00:00:00 Cigarette Smoker [facility] Gender identity [facility] Sexual orientation [facility] Sex Assigned At [facility] Alcohol intake 2023-09-11 00:00:00 2023-09-11 00:00:00 Current non-drinker of alcohol (finding) [facility] Alcoholic beverage intake 2023-09-11 00:00:00 2023-09-11 00:00:00 Current non-drinker of alcohol (finding) [facility] History of Social function 2023-03-06 00:00:00 2023-03-06 00:00:00 [facility] Exposure to SARS-CoV-2 (event) 2022-09-25 00:00:00 2022-10-05 12:58:00 Not sure [facility] Tobacco use and exposure 2022-09-06 00:00:00 2022-09-06 00:00:00 Smokeless tobacco non-user [facility] Smoking Status Start Date Stop Date Source Never Smoker [facility] Ex-smoker 2022-09-06 00:00:00 2022-09-06 00:00:00 U [facility] Medications Ordered Medication Name Filled Medication Name Start Date Stop Date Current Medication? Ordering Clinician Indication Dosage Frequency Signature (SIG) Comments Components Source hydrALAZINE 100 mg tablet 5-20 00:00: 00 Yes [id number] 100mg Take 1 tablet by mouth 3 (three) times daily. [facility] glipiZIDE XL 5 MG glipiZIDE XL 5 MG 3-21 00:00: 00 No 1{table t_with_ food} QD glipiZIDE XL 5 MG AMLODIPINE 10 mg tablet - 00:00: 00 Yes [id number] Take 1 tablet by mouth once daily [facility] sodium polystyrene sulfonate (KAYEXALATE ) 15 gram/60 mL suspension 30 g 10-06 00:45: 00 10-06 12:44 :00 No 30g 30 g, Oral, ONCE, 1 dose, On Rosi 10/05/22 at 1845, Routine [facility] AMLODIPINE 10 mg tablet 09-08 00:00: 00 01-14 00:00 :00 No [id number] Take 1 tablet by mouth once daily [facility] atorvastati n 80 mg tablet 09-06 00:00: 00 Yes [id number] 80mg Take 1 tablet by mouth daily. [facility] carvediloL 25 mg tablet 09-06 00:00: 00 Yes [id number] 9107 25mg Take 1 tablet by mouth 2 (two) times daily with meals. [facility] furosemide 40 mg tablet 09-06 00:00: 00 Yes [id number] 40mg/20mg alternatin g daily dose. [facility] hydrALAZINE 100 mg tablet 09-06 00:00: 00 01-06 00:00 :00 No [id number] 100mg Take 1 tablet by mouth 3 (three) times daily. [facility] cloNIDine (CATAPRES) tablet 0.1 mg 05-04 20:45: 00 05-04 19:50 :00 No [id number] .1mg [facility] cloNIDine (CATAPRES) tablet 0.1 mg 05-04 20:20: 00 05-04 20:20 :00 No [id number] .1mg [facility] amLODIPine 10 mg tablet 05-04 00:00: 00 09-08 00:00 :00 No [id number] 10mg Take 1 tablet by mouth daily. [facility] carvediloL 25 mg tablet 04-11 00:00: 00 09-06 00:00 :00 No [id number] 9107 25mg Take 1 tablet by mouth 2 (two) times daily with meals. [facility] Dose Unknown 12-19 00:00: 00 No Dose Unknown 12-19 00:00: 00 No Dose Unknown 12-08 00:00: 00 No Dose Unknown 12-08 00:00: 00 No Dose Unknown 12-08 00:00: 00 No Dose Unknown 12-08 00:00: 00 No Dose Unknown 12-08 00:00: 00 No atorvastati n 80 mg tablet 12-07 00:00: 00 09-06 00:00 :00 No [id number] 80mg Take 1 tablet by mouth daily. [facility] hydrALAZINE 100 mg tablet 12-07 00:00: 00 09-06 00:00 :00 No [id number] 100mg Take 1 tablet by mouth 3 (three) times daily. [facility] amLODIPine 10 mg tablet 12-07 00:00: 00 05-04 00:00 :00 No 10mg Take 1 tablet by mouth daily. [facility] Novolin 70-30 FlexPen U-100 Insulin 100 unit/mL (70-30) subcutaneou s 2020-08 0 00:00: 00 No unit/mL (70-30) amlodipine 10 mg tablet 2020-08 0 00:00: 00 No 1mg hydralazine 25 mg tablet 2020-08 0 00:00: 00 No 1mg aspirin 81 mg EC tablet 2020-08 018 00:00: 00 Yes [id number] 81mg Take 1 tablet by mouth daily. [facility] furosemide 40 mg tablet 8-19 00:00: 00 09-06 00:00 :00 No [id number] 40mg/20mg alternatin g daily dose. [facility] Dose Unknown 7-10 00:00: 00 No sodium bicarbonate 325 mg tablet 6-12 00:00: 00 No 1mg sulfamethox azole 800 mg-trimetho prim 160 mg tablet 01-29 00:00: 00 No 1mg calcitriol 0.5 mcg capsule 01-29 00:00: 00 No 1mcg Lasix 40 mg tablet 01-28 00:00: 00 No 1mg Bactrim DS 800 mg-160 mg tablet 01-28 00:00: 00 No 1mg carvedilol 12.5 mg tablet 01-28 00:00: 00 No 1mg ergocalcife rol (vitamin D2) 1,250 mcg (50,000 unit) capsule 01-28 00:00: 00 No 1(50,00 0 unit) acidophilus 100 million cell-pectin , citrus 10 mg capsule 01-28 00:00: 00 No 1cell-1 0 mg ferrous sulfate 325 mg (65 mg iron) EC tablet 01-15 00:00: 00 Yes 325mg Take 325 mg by mouth 2 (two) times daily. [facility] Cholecalcif fina, Vitamin D3, 1,250 mcg (50,000 unit) capsule 01-15 00:00: 00 Yes 1{capsu le} Take 1 capsule by mouth weekly. [facility] Novolin 70-30 FlexPen U-100 Insulin 100 unit/mL (70-30) subcutaneou s 01-08 00:00: 00 No unit/mL (70-30) atorvastati n 40 mg tablet 01-08 00:00: 00 No 1mg lisinopril 20 mg tablet 01-08 00:00: 00 No 1mg metformin 1,000 mg tablet 01-08 00:00: 00 No 1mg amlodipine 5 mg tablet 01-08 00:00: 00 No 1mg metoprolol tartrate 50 mg tablet 01-08 00:00: 00 No 1mg hydralazine 25 mg tablet 01-08 00:00: 00 No 1mg hydralazine 25 mg tablet 01-08 00:00: 00 No 2mg metformin 1,000 mg tablet 01-05 00:00: 00 No 1mg lisinopril 20 mg tablet 01-05 00:00: 00 No 1mg metoprolol tartrate 50 mg tablet 01-05 00:00: 00 No 1mg hydralazine 25 mg tablet 01-05 00:00: 00 No 1mg amlodipine 5 mg tablet 01-05 00:00: 00 No 1mg Novolin 70-30 FlexPen U-100 Insulin 100 unit/mL (70-30) [facility] 01-05 00:00: 00 No unit/mL (70-30) Novolin 70-30 FlexPen U-100 Insulin 100 unit/mL (70-30) [facility] 09-18 00:00: 00 No unit/mL (70-30) lisinopril 20 mg tablet 09-18 00:00: 00 No 1mg metformin 1,000 mg tablet 09-18 00:00: 00 No 1mg hydralazine 25 mg tablet 09-18 00:00: 00 No 1mg amlodipine 5 mg tablet 09-18 00:00: 00 No 1mg metoprolol tartrate 50 mg tablet 09-18 00:00: 00 No 1mg Novolin 70-30 FlexPen U-100 Insulin 100 unit/mL (70-30) [facility] 2019-08 00:00: 00 No unit/mL (70-30) lisinopril 20 mg tablet 2019-08 00:00: 00 No 1mg metformin 1,000 mg tablet 2019-08 00:00: 00 No 1mg metoprolol tartrate 50 mg tablet 2019-08 00:00: 00 No 1mg hydralazine 25 mg tablet 2019-08 00:00: 00 No 1mg amlodipine 5 mg tablet 2019-08 00:00: 00 No 1mg metformin 1,000 mg tablet 2019-08 0 00:00: 00 No 1mg lisinopril 20 mg tablet 04-01 00:00: 00 No 1mg metoprolol tartrate 50 mg tablet 2020-0 8-13 00:00: 00 No 1mg hydralazine 25 mg tablet 8 00:00: 00 No 1mg amlodipine 5 mg tablet 04-01 00:00: 00 No 1mg hydroxyzine HCl 50 mg tablet 15 00:00: 00 No 1mg Novolin 70-30 FlexPen U-100 [facility]ulin 100 [facility]70-30[facility] 00:00: 00 No unit/mL (70-30) lisinopril 20 mg tablet 03-02 00:00: 00 No 1mg hydralazine 50 mg tablet 03-02 00:00: 00 No 1mg metformin 1,000 mg tablet 03-02 00:00: 00 No 1mg metoprolol tartrate 50 mg tablet 03-02 00:00: 00 No 1mg hydralazine 25 mg tablet 03-02 00:00: 00 No 1mg amlodipine 5 mg tablet 03-02 00:00: 00 No 1mg Novolin 70-30 FlexPen U-100 [facility]ulin 100 [facility]70-30[facility] 00:00: 00 No unit/mL (70-30) Novolin 70-30 FlexPen U-100 Insulin 100 unit[facility]mL (70-30) [facility] 01-18 00:00: 00 No unit/mL (70-30) lisinopril 20 mg tablet 01-18 00:00: 00 No 1mg metformin 1,000 mg tablet 01-18 00:00: 00 No 1mg metoprolol tartrate 50 mg tablet 01-18 00:00: 00 No 1mg hydralazine 25 mg tablet 01-18 00:00: 00 No 1mg amlodipine 5 mg tablet 01-18 00:00: 00 No 1mg Novolin 70-30 FlexPen U-100 Insulin 100 unit/mL (70-30) [facility] 12-14 00:00: 00 No 20unit/ mL (70-30) lisinopril 20 mg tablet 17 00:00: 00 No 1mg metformin 1,000 mg tablet 2020-0 4-17 00:00: 00 No 1mg metoprolol tartrate 50 mg tablet 0 4-17 00:00: 00 No 1mg hydralazine 25 mg tablet 0 4-17 00:00: 00 No 1mg glimepiride 4 mg tablet 0 4-17 00:00: 00 No 1mg amlodipine 5 mg tablet 0 4-17 00:00: 00 No 1mg lisinopril 20 mg tablet 0 4-16 00:00: 00 No 1mg amlodipine 5 mg tablet 0 4-16 00:00: 00 No 1mg metoprolol tartrate 50 mg tablet 0 4-16 00:00: 00 No 1mg hydralazine 25 mg tablet 0 4-16 00:00: 00 No 1mg glimepiride 4 mg tablet 0 4-16 00:00: 00 No 1mg metformin 1,000 mg tablet 0 4-16 00:00: 00 No 1mg mupirocin 2 % topical ointment 0 4-09 00:00: 00 No 1% lisinopril 20 mg tablet 0 3-16 00:00: 00 No 1mg amlodipine 5 mg tablet 0 3-16 00:00: 00 No 1mg metoprolol tartrate 50 mg tablet 0 3-16 00:00: 00 No 1mg hydralazine 25 mg tablet 0 3-16 00:00: 00 No 1mg glimepiride 4 mg tablet 0 3-16 00:00: 00 No 1mg metformin 1,000 mg tablet 0 3-16 00:00: 00 No 1mg lisinopril 10 mg tablet 0 2-13 00:00: 00 No 1mg glimepiride 4 mg tablet 0 2-13 00:00: 00 No 1mg metformin 1,000 mg tablet 2019-0 2-13 00:00: 00 No 1mg amlodipine 5 mg tablet 2019-0 2-13 00:00: 00 No 1mg metoprolol tartrate 50 mg tablet 2019-0 2-13 00:00: 00 No 1mg hydralazine 25 mg tablet 0 2-13 00:00: 00 No 1mg cholecalcif fina (vitamin D3) 1,250 mcg (50,000 unit) tablet 2018-08 00:00: 00 No 1(50,00 0 unit) hydralazine 25 mg tablet 2018-08 00:00: 00 No 1mg metoprolol tartrate 50 mg tablet 2018-08 00:00: 00 No 1mg metformin 1,000 mg tablet 2018-08 00:00: 00 No 1mg amlodipine 5 mg tablet 2018-08 00:00: 00 No 1mg metoprolol tartrate 50 mg tablet 2018-08 00:00: 00 No 1mg glimepiride 4 mg tablet 2018-08 00:00: 00 No 1mg metformin 1,000 mg tablet 2018-08 00:00: 00 No 1mg hydralazine 25 mg tablet 2018-08 00:00: 00 No 1mg metformin 1,000 mg tablet 2018-08 00:00: 00 No 1mg glimepiride 4 mg tablet 2018-08 00:00: 00 No 1mg hydralazine 25 mg tablet 2018-08 00:00: 00 No 1mg glimepiride 4 mg tablet 04-16 00:00: 00 No 1mg pantoprazol e 40 mg tablet,tia yed release 03-25 00:00: 00 No 1mg metoprolol tartrate 50 mg tablet 03-25 00:00: 00 No 1mg amlodipine 5 mg tablet 03-25 00:00: 00 No 1mg metformin 1,000 mg tablet 03-25 00:00: 00 No 1mg hydralazine 25 mg tablet 03-25 00:00: 00 No 1mg gabapentin 100 mg capsule 03-25 00:00: 00 No 1mg glimepiride 4 mg tablet 03-21 00:00: 00 No 1mg metoprolol tartrate 50 mg tablet 01-30 00:00: 00 No 1mg hydralazine 25 mg tablet 01-10 00:00: 00 No 1mg metronidazo le 500 mg tablet 01-09 00:00: 00 No 1mg amlodipine 5 mg tablet 01-01 00:00: 00 No 1mg glimepiride 4 mg tablet 12-23 00:00: 00 No 1mg metformin 1,000 mg tablet 12-23 00:00: 00 No 1mg hydralazine 25 mg tablet 12-16 00:00: 00 No 1mg Novolin N NPH U-100 Insulin isophane 100 unit/mL subcutaneou s susp 12-16 00:00: 00 No 1unit/m L metoprolol tartrate 50 mg tablet 12-16 00:00: 00 No 1mg amlodipine 5 mg tablet 12-16 00:00: 00 No 1mg pantoprazol e 40 mg tablet,tia yed release 11-24 00:00: 00 No 1mg lisinopril 20 mg-hydrochl orothiazide 12.5 mg tablet 03-07 00:00: 00 No 1mg glimepiride 4 mg tablet 03-07 00:00: 00 No 1mg metformin 1,000 mg tablet 03-07 00:00: 00 No 1mg Aspir-Low 81 MG Aspir-Low 81 MG No 1{table t} QD Aspir-Low 81 MG Carvedilol 25 MG Carvedilol 25 MG No 1{table t_with_ food} BID Carvedilol 25 MG Atorvastati n Calcium 80 MG Atorvastati n Calcium 80 MG No 1{table t} QD Atorvastat in Calcium 80 MG hydrALAZINE HCl 50 MG hydrALAZINE HCl 50 MG No 1{table t_with_ food} TID hydrALAZIN E HCl 50 MG NovoLIN 70/30 FlexPen (70-30) 100 UNIT/ML NovoLIN 70/30 FlexPen (70-30) 100 UNIT/ML No QD NovoLIN 70/30 FlexPen (70-30) 100 UNIT/ML Ferrous Sulfate 325 (65 Fe) MG Ferrous Sulfate 325 (65 Fe) MG No 1{table t} QD Ferrous Sulfate 325 (65 Fe) MG Immunizations Ordered Immunization Name Filled Immunization Name Date Status Comments Source Influenza Virus Vaccine Quad IM, Preserv and ABX Free 6 MO-64 YRS 2021-12-07 00:00:00 Completed [facility] Influenza Virus Vaccine Quad IM, Preserv and ABX Free 6 MO-64 YRS 2021-12-07 00:00:00 Completed [facility] Influenza Virus Vaccine Quad IM, Preserv and ABX Free 6 MO-64 YRS 2021-12-07 00:00:00 Completed [facility] Influenza Virus Vaccine Quad IM, Preserv and ABX Free 6 MO-64 YRS 2021-12-07 00:00:00 Completed [facility] Influenza Virus Vaccine Quad IM, Preserv and ABX Free 6 MO-64 YRS 2021-12-07 00:00:00 Completed [facility] Influenza Virus Vaccine Quad IM, Preserv and ABX Free 6 MO-64 YRS 2021-12-07 00:00:00 Completed [facility] Influenza Virus Vaccine Quad IM, Preserv and ABX Free 6 MO-64 YRS 2021-12-07 00:00:00 Completed [facility] Influenza Virus Vaccine Quad IM, Preserv and ABX Free 6 MO-64 YRS 2021-12-07 00:00:00 Completed [facility] Influenza Virus Vaccine Quad IM, Preserv and ABX Free 6 MO-64 YRS 2021-12-07 00:00:00 Completed [facility] Influenza Virus Vaccine Quad IM, Preserv and ABX Free 6 MO-64 YRS 2021-12-07 00:00:00 Completed [facility] Influenza Virus Vaccine Quad IM, Preserv and ABX Free 6 MO-64 YRS 2021-12-07 00:00:00 Completed [facility] Influenza Virus Vaccine Quad IM, Preserv and ABX Free 6 MO-64 YRS 2021-12-07 00:00:00 Completed [facility] Influenza Virus Vaccine Quad IM, Preserv and ABX Free 6 MO-64 YRS 2021-12-07 00:00:00 Completed [facility] Influenza Virus Vaccine Quad IM, Preserv and ABX Free 6 MO-64 YRS 2021-12-07 00:00:00 Completed [facility] Influenza Virus Vaccine Quad IM, Preserv and ABX Free 6 MO-64 YRS 2021-12-07 00:00:00 Completed [facility] Td 2007-08-20 00:00:00 Completed [facility] Td 2007-08-20 00:00:00 Completed [facility] TD, NOS 2007-08-20 00:00:00 Completed [facility] TD, NOS 2007-08-20 00:00:00 Completed [facility] TD, NOS 2007-08-20 00:00:00 Completed [facility] TD, NOS 2007-08-20 00:00:00 Completed [facility] TD, NOS 2007-08-20 00:00:00 Completed [facility] TD, NOS 2007-08-20 00:00:00 Completed [facility] TD, NOS 2007-08-20 00:00:00 Completed [facility] TD, NOS 2007-08-20 00:00:00 Completed [facility] TD, NOS 2007-08-20 00:00:00 Completed [facility] TD, NOS 2007-08-20 00:00:00 Completed [facility] TD, NOS 2007-08-20 00:00:00 Completed [facility] TD, NOS 2007-08-20 00:00:00 Completed [facility] TD, NOS 2007-08-20 00:00:00 Completed [facility] TD, NOS Unknown Completed [facility] Influenza Virus Vaccine Quad IM, Preserv and ABX Free 6 MO-64 YRS (FLUCELVAX) Unknown Completed [facility] TD, NOS Unknown Completed [facility] Influenza Virus Vaccine Quad IM, Preserv and ABX Free 6 MO-64 YRS (FLUCELVAX) Unknown Completed [facility] TD, NOS Unknown Completed [facility] Influenza Virus Vaccine Quad IM, Preserv and ABX Free 6 MO-64 YRS (FLUCELVAX) Unknown Completed [facility] TD, NOS Unknown Completed [facility] Influenza Virus Vaccine Quad IM, Preserv and ABX Free 6 MO-64 YRS (FLUCELVAX) Unknown Completed [facility] TD, NOS Unknown Completed [facility] Influenza Virus Vaccine Quad IM, Preserv and ABX Free 6 MO-64 YRS (FLUCELVAX) Unknown Completed [facility] TD, NOS Unknown Completed [facility] Influenza Virus Vaccine Quad IM, Preserv and ABX Free 6 MO-64 YRS (FLUCELVAX) Unknown Completed [facility] TD, NOS Unknown Completed [facility] Influenza Virus Vaccine Quad IM, Preserv and ABX Free 6 MO-64 YRS (FLUCELVAX) Unknown Completed [facility] TD, NOS Unknown Completed [facility] Influenza Virus Vaccine Quad IM, Preserv and ABX Free 6 MO-64 YRS (FLUCELVAX) Unknown Completed [facility] TD, NOS Unknown Completed [facility] Influenza Virus Vaccine Quad IM, Preserv and ABX Free 6 MO-64 YRS (FLUCELVAX) Unknown Completed [facility] Vital Signs Vital Name Observation Time Observation Value Comments S ource height 2024-03-20 16:00:00 61 [in_i] Commo n [facility] weight 2024-03-20 16:00:00 183 [lb_av] Comm on [facility] temperature 2024-03-20 16:00:00 97.6 [degF] Com mon [facility] bmi 2024-03-20 16:00:00 34.57 kg/m2 Comm on [facility] oximetry 2024-03-20 16:00:00 98 % Commo n [facility] blood pressure systolic 2024-03-20 16:00:00 142 mm[Hg] [facility] blood pressure diastolic 2024-03-20 16:00:00 74 mm[Hg] [facility] height 2023-11-08 10:20:00 61 [in_i] Commo n [facility] weight 2023-11-08 10:20:00 185.0 [lb_av] Co mmon [facility] temperature 2023-11-08 10:20:00 98.4 [degF] Com mon [facility] bmi 2023-11-08 10:20:00 34.95 kg/m2 Comm on [facility] oximetry 2023-11-08 10:20:00 97 % Commo n [facility] respiratory rate 2023-11-08 10:20:00 18 /min [facility] blood pressure systolic 2023-11-08 10:20:00 132 mm[Hg] [facility] blood pressure diastolic 2023-11-08 10:20:00 75 mm[Hg] [facility] Systolic blood pressure 2023-10-24 16:09:00 136 mm[Hg] [facility] Diastolic blood pressure 2023-10-24 16:09:00 63 mm[Hg] [facility] Heart rate 2023-10-24 16:09:00 61 /min [facility] Body temperature 2023-10-24 16:09:00 36.22 Shaye [facility] Respiratory rate 2023-10-24 16:09:00 18 /min [facility] Body height 2023-10-24 16:09:00 157.5 cm [facility] Body weight 2023-10-24 16:09:00 82.645 kg [facility] BMI 2023-10-24 16:09:00 33.32 kg/m2 [facility] Oxygen saturation in Arterial blood by Pulse oximetry 2023-10-24 16:09:00 97 /min [facility] height 2023-08-15 10:30:00 61 [in_i] Commo n [facility] weight 2023-08-15 10:30:00 190 [lb_av] Comm on [facility] temperature 2023-08-15 10:30:00 98.2 [degF] Com mon [facility] bmi 2023-08-15 10:30:00 35.9 kg/m2 Commo n [facility] oximetry 2023-08-15 10:30:00 99 % Commo n [facility] blood pressure systolic 2023-08-15 10:30:00 138 mm[Hg] Common [facility] blood pressure diastolic 2023-08-15 10:30:00 70 mm[Hg] Common [facility] Systolic blood pressure 2023-03-06 15:03:00 154 mm[Hg] [facility] Diastolic blood pressure 2023-03-06 15:03:00 81 mm[Hg] [facility] Heart rate 2023-03-06 15:03:00 68 /min [facility] Respiratory rate 2023-03-06 15:01:00 19 /min [facility] Body height 2023-03-06 15:01:00 157.5 cm [facility] Body weight 2023-03-06 15:01:00 86.546 kg [facility] BMI 2023-03-06 15:01:00 34.90 kg/m2 [facility] Oxygen saturation in Arterial blood by Pulse oximetry 2023-03-06 15:01:00 99 /min [facility] height 2023-03-01 08:50:00 61 [in_i] Commo n [facility] weight 2023-03-01 08:50:00 190.2 [lb_av] Co [facility] temperature 2023-03-01 08:50:00 97.6 [degF] Com mon [facility] bmi 2023-03-01 08:50:00 35.93 kg/m2 Comm on [facility] oximetry 2023-03-01 08:50:00 98 % Commo n [facility] respiratory rate 2023-03-01 08:50:00 18 /min Common [facility] blood pressure systolic 2023-03-01 08:50:00 141 mm[Hg] [facility] diastolic 2023-03-01 08:50:00 63 mm[Hg] Common [facility] height 2022-11-14 08:20:00 61 [in_i] Commo n [facility] weight 2022-11-14 08:20:00 184.8 [lb_av] Co [facility] temperature 2022-11-14 08:20:00 97.5 [degF] Com mon [facility] bmi 2022-11-14 08:20:00 34.91 kg/m2 Comm on [facility] oximetry 2022-11-14 08:20:00 99 % Commo n [facility] respiratory rate 2022-11-14 08:20:00 16 /min Common [facility] blood pressure systolic 2022-11-14 08:20:00 139 mm[Hg] [facility] blood pressure diastolic 2022-11-14 08:20:00 66 mm[Hg] [facility] Systolic blood pressure 2022-10-06 00:30:00 154 mm[Hg] [facility] Diastolic blood pressure 2022-10-06 00:30:00 61 mm[Hg] [facility] Heart rate 2022-10-06 00:30:00 71 /min [facility] Respiratory rate 2022-10-06 00:30:00 16 /min [facility] Oxygen saturation in Arterial blood by Pulse oximetry 2022-10-06 00:30:00 97 /min [facility] Body temperature 2022-10-05 18:59:00 36.5 Shaye [facility] Body height 2022-10-05 18:59:00 157.5 cm [facility] Body weight 2022-10-05 18:59:00 81.647 kg [facility] BMI 2022-10-05 18:59:00 32.92 kg/m2 [facility] Systolic blood pressure 2022-09-06 16:08:00 168 mm[Hg] [facility] Diastolic blood pressure 2022-09-06 16:08:00 77 mm[Hg] [facility] Heart rate 2022-09-06 16:04:00 68 /min [facility] Respiratory rate 2022-09-06 16:04:00 19 /min [facility] Body height 2022-09-06 16:04:00 157.5 cm [facility] Body weight 2022-09-06 16:04:00 83.462 kg [facility] BMI 2022-09-06 16:04:00 33.65 kg/m2 [facility] Oxygen saturation in Arterial blood by Pulse oximetry 2022-09-06 16:04:00 98 /min [facility] height 2022-06-13 09:00:00 61 [in_i] Commo n [facility] weight 2022-06-13 09:00:00 185.5 [lb_av] Co mmon [facility] temperature 2022-06-13 09:00:00 98.1 [degF] Com [facility] bmi 2022-06-13 09:00:00 35.05 kg/m2 Comm on [facility] oximetry 2022-06-13 09:00:00 97 % Commo n [facility] respiratory rate 2022-06-13 09:00:00 17 /min [facility] blood pressure systolic 2022-06-13 09:00:00 147 mm[Hg] Common [facility] blood pressure diastolic 2022-06-13 09:00:00 76 mm[Hg] Common [facility] height 2022-05-05 09:00:00 61 [in_i] Commo n [facility] weight 2022-05-05 09:00:00 186.8 [lb_av] Co mmon [facility] temperature 2022-05-05 09:00:00 97.5 [degF] Com [facility] bmi 2022-05-05 09:00:00 35.29 kg/m2 Comm on [facility] oximetry 2022-05-05 09:00:00 99 % Commo n [facility] respiratory rate 2022-05-05 09:00:00 17 /min Common [facility] blood pressure systolic 2022-05-05 09:00:00 145 mm[Hg] [facility] blood pressure diastolic 2022-05-05 09:00:00 65 mm[Hg] [facility] Systolic blood pressure 2022-05-04 20:43:00 192 mm[Hg] [facility] Diastolic blood pressure 2022-05-04 20:43:00 89 mm[Hg] [facility] Heart rate 2022-05-04 20:22:00 61 /min [facility] Respiratory rate 2022-05-04 19:08:00 18 /min [facility] Oxygen saturation in Arterial blood by Pulse oximetry 2022-05-04 19:08:00 98 /min [facility] Body temperature 2022-05-04 19:05:00 36.33 Shaye [facility] Body weight 2022-05-04 19:05:00 84.868 kg [facility] BMI 2022-05-04 19:05:00 34.22 kg/m2 [facility] BP Systolic 2022-05-12 16:28:00 138 mm[Hg] BP Diastolic 2022-05-12 16:28:00 71 mm[Hg] Weight Measured 2022-05-12 16:28:00 190.60 pounds Height Measured 2022-05-12 16:28:00 62.00 inches Body Temperature 2022-05-12 16:28:00 98.20 degrees Heart Rate 2022-05-12 16:28:00 75.00 /min Respiratory Rate 2022-05-12 16:28:00 18.00 /min BP Systolic 2021-12-19 11:05:00 155 mm[Hg] BP Diastolic 2021-12-19 11:05:00 83 mm[Hg] Weight Measured 2021-12-19 11:05:00 183.40 pounds Height Measured 2021-12-19 11:05:00 62.00 inches Body Temperature 2021-12-19 11:05:00 97.40 degrees Heart Rate 2021-12-19 11:05:00 72.00 /min Respiratory Rate 2021-12-19 11:05:00 BP Systolic 2021-12-08 08:38:00 135 mm[Hg] BP Diastolic 2021-12-08 08:38:00 76 mm[Hg] Weight Measured 2021-12-08 08:38:00 186.40 pounds Height Measured 2021-12-08 08:38:00 62.00 inches Body Temperature 2021-12-08 08:38:00 97.90 degrees Heart Rate 2021-12-08 08:38:00 Respiratory Rate 2021-12-08 08:38:00 BP Systolic 2021-07-13 08:35:00 140 mm[Hg] BP Diastolic 2021-07-13 08:35:00 71 mm[Hg] Weight Measured 2021-07-13 08:35:00 189.20 pounds Height Measured 2021-07-13 08:35:00 62.00 inches Body Temperature 2021-07-13 08:35:00 97.40 degrees Heart Rate 2021-07-13 08:35:00 82.00 /min Respiratory Rate 2021-07-13 08:35:00 16.00 /min BP Systolic 2021-06-15 10:36:00 141 mm[Hg] BP Diastolic 2021-06-15 10:36:00 67 mm[Hg] Weight Measured 2021-06-15 10:36:00 193.60 pounds Height Measured 2021-06-15 10:36:00 62.00 inches Body Temperature 2021-06-15 10:36:00 97.00 degrees Heart Rate 2021-06-15 10:36:00 74.00 /min Respiratory Rate 2021-06-15 10:36:00 BP Systolic 2021-02-26 11:23:00 129 mm[Hg] BP Diastolic 2021-02-26 11:23:00 74 mm[Hg] Weight Measured 2021-02-26 11:23:00 188.80 pounds Height Measured 2021-02-26 11:23:00 62.00 inches Body Temperature 2021-02-26 11:23:00 98.30 degrees Heart Rate 2021-02-26 11:23:00 Respiratory Rate 2021-02-26 11:23:00 BP Systolic 2021-01-28 14:07:00 144 mm[Hg] BP Diastolic 2021-01-28 14:07:00 67 mm[Hg] Weight Measured 2021-01-28 14:07:00 191.00 pounds Height Measured 2021-01-28 14:07:00 62.00 inches Body Temperature 2021-01-28 14:07:00 98.20 degrees Heart Rate 2021-01-28 14:07:00 79.00 /min Respiratory Rate 2021-01-28 14:07:00 BP Systolic 2021-01-08 11:23:00 116 mm[Hg] BP Diastolic 2021-01-08 11:23:00 65 mm[Hg] Weight Measured 2021-01-08 11:23:00 196.80 pounds Height Measured 2021-01-08 11:23:00 62.00 inches Body Temperature 2021-01-08 11:23:00 98.00 degrees Heart Rate 2021-01-08 11:23:00 68.00 /min Respiratory Rate 2021-01-08 11:23:00 20.00 /min BP Systolic 2020-09-18 10:03:00 123 mm[Hg] BP Diastolic 2020-09-18 10:03:00 73 mm[Hg] Weight Measured 2020-09-18 10:03:00 199.00 pounds Height Measured 2020-09-18 10:03:00 62.00 inches Body Temperature 2020-09-18 10:03:00 98.20 degrees Heart Rate 2020-09-18 10:03:00 65.00 /min Respiratory Rate 2020-09-18 10:03:00 BP Systolic 2020-09-18 09:46:00 123 mm[Hg] BP Diastolic 2020-09-18 09:46:00 73 mm[Hg] Weight Measured 2020-09-18 09:46:00 199.00 pounds Height Measured 2020-09-18 09:46:00 62.00 inches Body Temperature 2020-09-18 09:46:00 98.20 degrees Heart Rate 2020-09-18 09:46:00 65.00 /min Respiratory Rate 2020-09-18 09:46:00 Procedures Procedure Date / Time Performed Performing Clinician Source REFERRAL- REQUEST/RESPONSE 2023-09-19 06:01:00 Doctor Unassigned, [employer] [facility] TRANSTHORACIC ECHO (TTE) COMPLETE 2023-03-15 21:40:44 Gabrielle Bustillo [facility] ASSIGNMENT OF BENEFITS 2023-03-06 14:42:32 Docto r Unassigned, [employer] [facility] CONSENT/REFUSAL FOR DIAGNOSIS AND TREATMENT 2023-03-06 14:42:09 Doctor Unassigned, [employer] [facility] TROPONIN I 2022-10-05 20:43:00 [facility] MET[facility]OL[facility] PANEL (38561) 2022-10-05 20:43:00 Robbi Vicente [facility] CBC WITH DIFF 2022-10-05 20:43:00 Robbi Vicente [facility] N-TERMINAL PRO-BNP 2022-10-05 20:43:00 Robbi Vicente [facility] HB ECG ROUTINE & RHYTHM STRIP 2022-10-05 19:06:14 Cinthia Robbi [facility] EXTERNAL PROVIDER - ADC REFERRAL 2022-09-06 06:01:00 Doctor Unassigned, [employer] [facility] INSURANCE CORRESPONDENCE 2022-08-31 06:01:00 Doc tor Unassigned, [employer] [facility] Ekg 2020-09-18 00:00:00 Plan of Care Planned Activity Planned Date Details Comments Source Goal Plan of Care Note [code = 92045-9] Goal Plan of Care Note [code = 86219-6] Goal Plan of Care Note [code = 25211-2] Goal Plan of Care Note [code = 41379-8] Goal Plan of Care Note [code = 02138-6] Goal Plan of Care Note [code = 65311-3] Goal Plan of Care Note [code = 20565-4] Goal Plan of Care Note [code = 50278-4] Goal Plan of Care Note [code = 51264-6] Goal Plan of Care Note [code = 67509-5] Goal Plan of Care Note [code = 83245-2] Goal Plan of Care Note [code = 02009-8] Goal Plan of Care Note [code = 31632-2] Goal Plan of Care Note [code = 22641-3] Goal Plan of Care Note [code = 98894-3] Goal Plan of Care Note [code = 36394-4] Goal Plan of Care Note [code = 31870-7] Goal Plan of Care Note [code = 62997-7] Goal Plan of Care Note [code = 96106-2] Goal Plan of Care Note [code = 89492-4] Goal Plan of Care Note [code = 64507-2] Goal Plan of Care Note [code = 37479-8] Goal Plan of Care Note [code = 89222-8] Goal Plan of Care Note [code = 59206-9] Goal Plan of Care Note [code = 95976-1] Goal Plan of Care Note [code = 69105-1] Goal Plan of Care Note [code = 65614-2] Goal Plan of Care Note [code = 87082-9] Goal Plan of Care Note [code = 17419-0] Goal Plan of Care Note [code = 31302-8] Goal Plan of Care Note [code = 11241-9] Goal Plan of Care Note [code = 29306-0] Goal Plan of Care Note [code = 93589-0] Goal Plan of Care Note [code = 44408-4] Goal Plan of Care Note [code = 26821-8] Encounters Start Date/Time End Date/Time Encounter Type Admission Type Attending [facility] Facility Care Department Encounter ID Source 2024-03-17 11:34:00 Outpatient PozoRenata pepeh [facility] [id number] [facility] 2023-11-07 14:23:00 Outpatient Pozo Dl [facility] [id number] [facility] 2023-11-06 09:15:01 Outpatient Pozo Dl [facility] [id number] [facility] 2023-02-27 07:56:00 Outpatient PozoRenata pepeh [facility] [id number] [facility] 2022-11-10 10:12:02 Outpatient Sánchez Dl [facility] [id number] [facility] 2022-11-08 11:16:01 Outpatient Sánchez Dl [facility] [id number] [facility] 2022-06-09 08:19:01 Outpatient Ani Johnson [facility] [id number] [facility] 2022-05-08 10:57:01 [address] Johnson [facility] [id number] [facility] 2022-05-05 09:11:02 [address] Johnson [facility] [id number] [facility] 2024-04-07 00:00:00 2024-04-08 09:16:38 [facility] 1.2.840.114 350.1.13.10 4.2.7.2.686 [id number] [facility] 2024-04-07 00:00:00 2024-04-07 14:41:55 Telephone Iwona [facility] BUILDING 1.2.840.114 350.1.13.10 4.2.7.2.686 [id number] [facility] 2024-03-20 00:00:00 2024-03-20 00:00:00 OFFICE VISIT ESTAB PT LEVEL 4 [facility] [id number] [facility] 2024-03-17 00:00:00 2024-03-17 00:00:00 (TEL) [facility] [id number] [facility] 2024-03-13 00:00:00 2024-03-13 10:50:36 Telephone Iwona [facility] BUILDING 1.2.840.114 350.1.13.10 4.2.7.2.686 [id number] [facility] 2024-03-11 12:57:57 2024-03-11 23:59:00 Outpatient R GABRIELLE BUSTILLO [facility] [id number] [facility] 2024-03-11 12:57:57 2024-03-11 23:59:00 Hospital Encounter Ash Bustillongjun [facility] 1.2.840.114 350.1.13.10 4.2.7.2.686 [id number] [facility] 2024-03-10 00:00:00 2024-03-11 14:09:00 Telephone Gabrielle Bustillo [facility] BU[facility] 1.2.840.114 350.1.13.10 4.2.7.2.686 [id number] [facility] 2024-01-07 00:00:00 2024-01-07 11:34:37 [facility] 1.2.840.114 350.1.13.10 4.2.7.2.686 [id number] [facility] 2023-12-17 00:00:00 2023-12-17 00:00:00 (TEL) STLC STLC [id number] [facility] 2023-12-13 00:00:00 2023-12-13 00:00:00 (TEL) STLC STLC [id number] [facility] 2023-12-12 00:00:00 2023-12-12 00:00:00 (TEL) STLC STLC [id number] [facility] 2023-11-08 00:00:00 2023-11-08 00:00:00 (WELLNESS) Wellness [facility] [id number] [facility] 2023-10-24 10:20:00 2023-10-24 10:26:09 Outpatient R IWONA GABRIELLE [facility] [id number] [facility] 2023-10-24 10:20:00 2023-10-24 10:26:09 [facility] 1.2.840.114 350.1.13.10 4.2.7.2.686 [id number] [facility] 2023-09-19 00:00:00 2023-09-19 00:00:00 Orders Only Doctor Unassigned, [employer] [facility] 1.2.840.114 350.1.13.10 4.2.7.2.686 [id number] [facility] 2023-09-13 14:20:00 2023-09-13 14:20:00 Outpatient EDIN TREJOCANDELARIA [facility] [id number] [facility] 2023-09-13 00:00:00 2023-09-13 00:00:00 (TEL) STLMLC STLMLC [id number] [facility] 2023-09-13 00:00:00 2023-09-13 00:00:00 (TEL) STLMLC STLMLC [id number] [facility] 2023-09-06 10:20:00 2023-09-06 10:20:00 Outpatient GABRIELLE TREJO [facility] [id number] [facility] 2023-08-16 00:00:00 2023-08-16 00:00:00 (TEL) STLMLC STLMLC [id number] [facility] 2023-08-15 00:00:00 2023-08-15 00:00:00 OFFICE VISIT ESTAB PT LEVEL 4 STLMLC STLMLC [id number] [facility] 2023-07-27 00:00:00 2023-07-27 00:00:00 (TEL) STLMLC STLMLC [id number] [facility] 2023-07-16 00:00:00 2023-07-16 00:00:00 (TEL) STLMLC STLMLC [id number] [facility] 2023-07-06 00:00:00 2023-07-06 00:00:00 (TEL) STLMLC STLMLC [id number] [facility] 2023-06-25 00:00:00 2023-06-25 00:00:00 (TEL) STLMLC STLMLC [id number] [facility] 2023-05-11 00:00:00 2023-05-11 00:00:00 (TEL) STLMLC STLMLC [id number] [facility] 2023-04-18 00:00:00 2023-04-18 00:00:00 (TEL) STLMLC STLMLC [id number] [facility] 2023-03-20 00:00:00 2023-03-20 00:00:00 [facility] 1.2.840.114 350.1.13.10 4.2.7.2.686 [id number] [facility] 2023-03-15 15:38:12 2023-03-15 23:59:00 Outpatient R A[facility] [id number] [facility] 2023-03-15 15:38:12 2023-03-15 23:59:00 [facility] 1..840.114 350.1.13.10 4.2.7.2.686 [id number] [facility] 2023-03-06 10:00:00 2023-03-06 10:31:11 Outpatient R ASH [facility] [id number] [facility] 2023-03-06 10:00:00 2023-03-06 10:31:11 Office Visit Iwona [facility] 1..840.114 350.1.13.10 4.2.7.2.686 [id number] [facility] 2023-03-06 00:00:00 2023-03-06 00:00:00 Orders Only Doctor Unassigned, [employer] [facility] 1.2.840.114 350.1.13.10 4.2.7.2.686 [id number] [facility] 2023-03-01 00:00:00 2023-03-01 00:00:00 OFFICE VISIT ESTAB PT LEVEL 4 STLMLC STLMLC [id number] [facility] 2023-03-01 00:00:00 2023-03-01 00:00:00 (TEL) STLMLC STLMLC [id number] [facility] 2023-02-26 00:00:00 2023-02-26 00:00:00 (TEL) STLMLC STLMLC [id number] [facility] 2023-01-16 00:00:00 2023-01-16 00:00:00 (TEL) STLMLC STLMLC [id number] [facility] 2023-01-13 00:00:00 2023-01-13 00:00:00 [facility] 1.2.840.114 350.1.13.10 4.2.7.2.686 [id number] [facility] 2022-11-14 00:00:00 2022-11-14 00:00:00 PREV VISIT EST AGE 40-64 STLMLC STLMLC [id number] [facility] 2022-10-05 13:02:00 2022-10-05 18:32:00 Emergency X [facility] [id number] [facility] 2022-10-05 13:02:00 2022-10-05 18:32:00 Emergency Cinthia Robbi [facility] 1.2.840.114 350.1.13.10 4.2.7.2.686 [id number] [facility] 2022-09-08 00:00:00 2022-09-08 00:00:00 Refill Lorne Mclain [facility] 1.2.840.114 350.1.13.10 4.2.7.2.686 [id number] [facility] 2022-09-06 10:00:00 2022-09-06 10:22:56 Outpatient R [facility] [id number] [facility] 2022-09-06 10:00:00 2022-09-06 10:22:56 [facility] 1.2.840.114 350.1.13.10 4.2.7.2.686 [id number] [facility] 2022-09-06 00:00:00 2022-09-06 00:00:00 Orders Only Doctor Unassigned, [employer] [facility] 1.2.840.114 350.1.13.10 4.2.7.2.686 [id number] [facility] 2022-09-05 00:00:00 2022-09-05 00:00:00 (TEL) STLMLC STLMLC [id number] [facility] 2022-08-31 00:00:00 2022-08-31 00:00:00 Orders Only Doctor Unassigned, [employer] [facility] 1.2.840.114 350.1.13.10 4.2.7.2.686 [id number] [facility] 2022-06-13 00:00:00 2022-06-13 00:00:00 (TEL) STLMLC STLMLC [id number] [facility] 2022-06-13 00:00:00 2022-06-13 00:00:00 OFFICE VISIT ESTAB PT LEVEL 4 STLMLC STLMLC [id number] [facility] 2022-06-06 00:00:00 2022-06-06 00:00:00 (TEL) STLMLC STLMLC [id number] [facility] 2022-05-12 00:00:00 2022-05-12 00:00:00 Outpatient Visit [id number] 2022-05-05 00:00:00 2022-05-05 00:00:00 Telephone Lorne Mclain [facility] 1.2.840.114 350.1.13.10 4.2.7.2.686 [id number] [facility] 2022-05-05 00:00:00 2022-05-05 00:00:00 OFFICE VISIT NEW PT LEVEL 4 STLMLC STLMLC [id number] [facility] 2022-05-05 00:00:00 2022-05-05 00:00:00 (TEL) STLMLC STLC [id number] [facility] 2022-05-04 13:00:00 2022-05-04 15:54:16 Office Visit Lorne Mclain [facility] 1.2.840.114 350.1.13.10 4.2.7.2.686 [id number] [facility] 2022-05-04 13:00:00 2022-05-04 15:54:16 Outpatient R LORNE MCLAIN [facility] [id number] [facility] 2022-05-04 13:00:00 2022-05-04 13:00:00 Outpatient R LONRE MCLAIN [facility] [id number] [facility] 2022-05-03 12:00:00 2022-05-03 18:05:00 Emergency X KAYDEN HOLT [facility] ERT [id number] [facility] 2022-05-03 12:00:00 2022-05-03 18:05:00 Emergency Kayden Holt C [facility] 1.2.840.114 350.1.13.10 4.2.7.2.686 [id number] [facility] 2022-05-03 12:00:00 2022-05-03 18:05:00 Emergency X KAYDEN HOLT [facility] ERT [id number] [facility] 2022-05-03 00:00:00 2022-05-03 00:00:00 [facility] 1.2.840.114 350.1.13.10 4.2.7.2.686 [id number] [facility] 2022-04-11 00:00:00 2022-04-11 00:00:00 [facility] 1.2.840.114 350.1.13.10 4.2.7.2.686 [id number] [facility] 2022-03-02 09:24:00 2022-03-02 10:59:00 Emergency X ANGELINA SANTIAGO [facility] ERT [id number] [facility] 2022-03-02 09:24:00 2022-03-02 10:59:00 Emergency Angelina Santiago [facility] 1.2.840.114 350.1.13.10 4.2.7.2.686 [id number] [facility] 2022-03-02 09:24:00 2022-03-02 10:59:00 Emergency X ANGELINA SANTIAGO [facility] ERT [id number] [facility] 2022-02-23 00:00:00 2022-02-23 00:00:00 [facility] 1.2.840.114 350.1.13.10 4.2.7.2.686 [id number] [facility] 2022-02-22 12:00:00 2022-02-22 12:15:00 Telecom Field Technician Visit Pob, [facility] BUILDING 1.2.840.114 350.1.13.10 4.2.7.2.686 [id number] [facility] 2022-02-22 12:00:00 2022-02-22 12:00:00 Outpatient R ARIELLE, [facility] [id number] [facility] 2022-02-22 00:00:00 2022-02-22 00:00:00 Orders Only Doctor Unassigned, [employer] [facility] 1.2.840.114 350.1.13.10 4.2.7.2.686 [id number] [facility] 2022-02-08 13:00:00 2022-02-08 23:59:00 Outpatient GABRIELLE TREJO [facility] [id number] [facility] 2021-12-15 00:00:00 2021-12-15 00:00:00 Orders Only Doctor Unassigned, [employer] [facility] 1.2.840.114 350.1.13.10 4.2.7.2.686 [id number] [facility] 2021-12-14 10:15:00 2021-12-14 10:30:00 Telecom Field Technician Visit Pob, [facility] BUILDING 1.2.840.114 350.1.13.10 4.2.7.2.686 [id number] [facility] 2021-12-14 10:15:00 2021-12-14 10:15:00 [facility] [id number] 2021-12-07 10:20:00 2021-12-07 11:22:19 Outpatient R IWONA, [facility] [id number] [facility] 2021-12-07 10:20:00 2021-12-07 11:22:19 Outpatient R ASH [facility] [id number] [facility] 2021-12-07 10:20:00 2021-12-07 11:22:19 Outpatient R IWONA [facility] [id number] [facility] 2021-12-07 10:20:00 2021-12-07 11:22:19 Office Visit Iwona [facility] 1.840.114 350.1.13.10 4.2.7.2.686 [id number] 059 [id number] [facility] 2021-12-07 00:00:00 2021-12-07 00:00:00 Orders Only Doctor Unassigned, [employer] [facility] 1..114 350.1.13.10 4.2.7.2.686 [id number] 009 [id number] [facility] 2021-12-06 10:20:00 2021-12-06 10:20:00 Outpatient R IWONA [facility] [id number] [facility] 2021-10-10 08:45:00 2021-10-10 09:00:00 Telecom Field Technician Visit Pob, Adc Lab Main Tito [facility] 1.840.114 350.1.13.10 4.2.7.2.686 [id number] [facility] 2021-10-10 08:45:00 2021-10-10 08:45:00 Outpatient R KEVIN FRANCIS [facility] [id number] [facility] 2021-10-10 00:00:00 2021-10-10 00:00:00 Orders Only Doctor Unassigned, [employer] [facility] 1.840.114 350.1.13.10 4.2.7.2.686 [id number] [id number] [facility] 2021-08-03 14:45:00 2021-08-03 15:00:00 Telecom Field Technician Visit Pob, Adc Lab Main [facility] 1.2.840.114 350.1.13.10 4.2.7.2.686 [id number] [facility] 2021-08-03 14:45:00 2021-08-03 14:45:00 Outpatient R TITO [facility] [id number] [facility] 2021-08-03 00:00:00 2021-08-03 00:00:00 Orders Only Doctor Unassigned, [employer] [facility] 1.2840.114 350.1.13.10 4.2.7.2.686 [id number] 009 [id number] [facility] 2021-06-06 08:50:13 2021-06-06 09:30:49 [facility] 1.2.840.114 350.1.13.10 4.2.7.2.686 [id number] 059 [id number] [facility] 2021-06-06 09:00:00 2021-06-06 09:00:00 [facility] [id number] [facility] 2021-05-09 09:20:00 2021-05-09 09:20:00 Outpatient Mariama [facility] [id number] [facility] 2021-04-11 00:00:00 2021-04-11 00:00:00 Orders Only Doctor Unassigned, [employer] [facility] 1.2.114 350.1.13.10 4.2.7.2.686 [id number] 009 [id number] [facility] 2021-04-08 00:00:00 2021-04-08 00:00:00 [facility] 1.2.840.114 350.1.13.10 4.2.7.2.686 [id number] 059 [id number] [facility] 2021-04-07 00:00:00 2021-04-07 00:00:00 [facility] 1.2.840.114 350.1.13.10 4.2.7.2.686 [id number] 059 [id number] [facility] 2021-03-15 00:00:00 2021-03-15 00:00:00 [facility] 1.2.840.114 350.1.13.10 4.2.7.2.686 [id number] 059 [id number] [facility] 2021-03-07 16:40:44 2021-03-07 16:55:44 Telecom Field Technician Visit Pob, Adc Lab Main [facility] 1.2.840.114 350.1.13.10 4.2.7.2.686 [id number] [facility] 2021-03-07 15:47:25 2021-03-07 16:24:24 [facility] 1.2.840.114 350.1.13.10 4.2.7.2.686 [id number] 059 [id number] [facility] 2021-03-07 16:00:00 2021-03-07 16:00:00 Outpatient [facility] [id number] [facility] 2021-02-17 00:00:00 2021-02-17 00:00:00 [facility] 1.2.840.114 350.1.13.10 4.2.7.2.686 [id number] 059 [id number] [facility] 2021-02-15 00:00:00 2021-02-15 00:00:00 [facility] 1.2.840.114 350.1.13.10 4.2.7.2.686 [id number] 059 [id number] [facility] 2021-02-02 16:46:49 2021-02-02 17:01:49 Telecom Field Technician Visit 2, Ad[facility] 1.2.840.114 350.1.13.10 4.2.7.2.686 [id number] [facility] 2021-02-02 15:43:41 2021-02-02 16:26:24 [facility] 1.2.840.114 350.1.13.10 4.2.7.2.686 [id number] 059 [id number] [facility] 2021-02-02 16:00:00 2021-02-02 16:00:00 Outpatient R [facility] [id number] [facility] 2021-01-31 00:00:00 2021-01-31 00:00:00 [facility] 1.2.840.114 350.1.13.10 4.2.7.2.686 [id number] 059 [id number] [facility] 2021-01-27 00:00:00 2021-01-27 00:00:00 Transition of Care Aislinn Cornell 1.2.840.114 350.1.13.10 4.2.7.2.686 [id number] [facility] 2021-01-24 11:22:00 2021-01-26 18:20:00 Hospital Encounter Raad Rose [facility] 1.2.840.114 350.1.13.10 4.2.7.2.686 [id number] 081 [id number] [facility] 2021-01-24 08:41:01 2021-01-24 09:01:01 [facility] 1.2.840.114 350.1.13.10 4.2.7.2.686 [id number] 059 [id number] [facility] 2021-01-24 08:40:00 2021-01-24 08:40:00 Outpatient R [facility] [id number] [facility] 2021-01-14 00:00:00 2021-01-14 00:00:00 Orders Only Doctor Unassigned, [employer] [facility] 1.2.840.114 350.1.13.10 4.2.7.2.686 [id number] 009 [id number] [facility] 2020-12-14 00:00:00 2020-12-14 00:00:00 Telephone [facility]ona [facility] 1.2840.114 350.1.13.10 4.2.7.2.686 [id number] 059 [id number] [facility] 2020-12-14 00:00:00 2020-12-14 00:00:00 [facility]phone [facility] 1.2840.114 350.1.13.10 4.2.7.2.686 [id number] 059 [id number] 2020-12-10 00:00:00 2020-12-10 00:00:00 [facility] 1.2840.114 350.1.13.10 4.2.7.2.686 [id number] 059 [id number] [facility] 2020-12-10 00:00:00 2020-12-10 00:00:00 [facility] 1.2.840.114 350.1.13.10 4.2.7.2.686 [id number] 059 [id number] 2020-12-09 08:28:13 2020-12-09 08:28:13 [facility] 1.2.840.114 350.1.13.10 4.2.7.2.686 [id number] [id number] [facility] 2020-12-09 08:28:13 2020-12-09 08:28:13 [facility] 1.2.840.114 350.1.13.10 4.2.7.2.686 [id number] [id number] 2020-12-09 08:27:30 2020-12-09 08:27:30 [facility] 1.2.840.114 350.1.13.10 4.2.7.2.686 [id number] [id number] 2020-12-09 08:27:30 2020-12-09 08:27:30 [facility] 1.2.840.114 350.1.13.10 4.2.7.2.686 [id number] [facility] 2020-12-09 08:27:18 2020-12-09 08:27:18 [facility] 1.2.840.114 350.1.13.10 4.2.7.2.686 [id number] 2020-12-09 08:27:18 2020-12-09 08:27:18 [facility] 1.2.840.114 350.1.13.10 4.2.7.2.686 [id number] [id number] [facility] 2020-12-09 08:26:27 2020-12-09 08:26:27 Hospital Encounter Iwona, [facility] 1.2.840.114 350.1.13.10 4.2.7.2.686 [id number] [id number] 2020-12-09 08:26:27 2020-12-09 08:26:27 Hospital Encounter Iwona, [facility] 1.2.840.114 350.1.13.10 4.2.7.2.686 [id number] [facility] 2020-12-09 00:00:00 2020-12-09 00:00:00 Outpatient I[facility]ONA [facility] [id number] [facility] 2020-11-26 11:10:25 2020-11-26 23:59:00 Hospital Encounter Iwona, [facility] 1.2.840.114 350.1.13.10 4.2.7.2.686 [id number] 2020-11-26 11:10:25 2020-11-26 23:59:00 Hospital Encounter Iwona, [facility] 1.2.840.114 350.1.13.10 4.2.7.2.686 [id number] [facility] 2020-11-26 11:11:22 2020-11-26 11:26:22 Telecom Field Technician Visit Mac Shin Lab Main [facility] 1.2.840.114 350.1.13.10 4.2.7.2.686 [id number] 2020-11-26 11:11:22 2020-11-26 11:26:22 Telecom Field Technician Visit Aleida, Mac Lab Main Iwona Qiangjun [facility] 1.2.840.114 350.1.13.10 4.2.7.2.686 [id number] [facility] 2020-11-26 10:04:36 2020-11-26 10:52:08 [facility] 1.2.840.114 350.1.13.10 4.2.7.2.686 [id number] 059 [id number] [facility] 2020-11-26 10:20:00 2020-11-26 10:20:00 Outpatient R [facility]ONA [facility] [id number] [facility] 2020-11-26 00:00:00 2020-11-26 00:00:00 Telephone [facility] 1.2.840.114 350.1.13.10 4.2.7.2.686 [id number] 059 [id number] 2020-11-26 00:00:00 2020-11-26 00:00:00 Orders Only Doctor Unassigned, [employer] [facility] 1.2.840.114 350.1.13.10 4.2.7.2.686 [id number] [id number] [facility] 2020-11-26 00:00:00 2020-11-26 00:00:00 Telephone [facility] 1.2.840.114 350.1.13.10 4.2.7.2.686 [id number] 059 [id number] [facility] 2020-11-05 00:00:00 2020-11-05 00:00:00 Orders Only Doctor Unassigned, [employer] [facility] 1.2.840.114 350.1.13.10 4.2.7.2.686 [id number] 009 [id number] [facility] 2020-09-23 00:00:00 2020-09-23 00:00:00 Orders Only Doctor Unassigned, [employer] [facility] 1.2.840.114 350.1.13.10 4.2.7.2.686 [id number] 009 [id number] [facility] Results Test Description Test Time Test Comments Results Result Co mments Source TSH REFLEX TO FREE [id number] 00:00:00* Test Item Value Reference Range Interpretation Comme nts TSH REFLEX TO FREE T4 (test code = 27454-0) 1.260 UIU/ML See_Comment [Automated [employer]Space[employer] ge] The system which generated this result transmitted reference range: 0.400-4.100 UIU/ML. The reference range was not used to interpret this result as normal/abnormal. URINALYSIS (CULTURE IF INDICATED)2024-03-13 00:00:00* Test Item Value Reference Range Interpretation Comme nts APPEARANCE (test code = 5767-9) CLEAR CLEAR BACTERIA (test code = 91779-3) 3+ NONE SEEN A BILIRUBIN (test code = 5770-3) NEGATIVE NEGATIVE CASTS, HYALINE (test code = 14664-5) TRACE NONE-TRACE COLOR (test code = 5778-6) YELLOW YELLOW-STRAW EPITHELIAL CELLS (test code = 38133-2) 0-5 /HPF See_Comment [Automated [employer] Moo[employer]ella] The system which generated this result transmitted reference range: 0-10 /HPF. The reference range was not used to interpret this result as normal/abnormal. GLUCOSE (test code = 5792-7) NEGATIVE NEGATIVE KETONES (test code = 5797-6) NEGATIVE NEGATIVE LEUKOCYTE ESTERASE (test code = 5799-2) 1+ NEGATIVE A NITRITE (test code = 5802-4) POSITIVE NEGATIVE A OCCULT BLOOD (test code = 30956-2) NEGATIVE NEGATIVE pH (test code = 5803-2) 5.5 5.0-9.0 PROTEIN (test code = 17030-5) 1+ NEGATIVE A RED BLOOD CELLS (test code = 55832-4) 0-2 /HPF See_Comment [Automated [employer] ge] The system which generated this result transmitted reference range: 0-2 /HPF. The reference range was not used to interpret this result as normal/abnormal. SPECIFIC GRAVITY (test code = 5811-5) 1.012 1.005-1.035 UROBILINOGEN (test code = 87041-3) 0.2 MG/DL See_Comment [Automated messa ge] The system which generated this result transmitted reference range: <=2.0 MG/DL. The reference range was not used to interpret this result as normal/abnormal. WHITE BLOOD CELLS (test code = 57569-1) 31-50 /HPF See_Comment A [Automated message] The system which generated this result transmitted reference range: 0-5 /HPF. The reference range was not used to interpret this result as normal/abnormal. LIPID PANEL WITH REFLEX DIRECT [id number] 00:00:00* Test Item Value Reference Range Interpretation Comme nts CALC LDL CHOL (test code = 87402-5) 113 MG/DL See_Comment H [Automated messa ge] The system which generated this result transmitted reference range: <100 MG/DL. The reference range was not used to interpret this result as normal/abnormal. CHOLESTEROL (test code = 2093-3) 198 MG/DL See_Comment [Automated messa ge] The system which generated this result transmitted reference range: <200 MG/DL. The reference range was not used to interpret this result as normal/abnormal. HDL CHOLESTEROL (test code = 2085-9) 69 MG/DL See_Comment [Automated messa ge] The system which generated this result transmitted reference range: >39 MG/DL. The reference range was not used to interpret this result as normal/abnormal. RISK RATIO LDL/HDL (test code = 63247-1) 1.64 RATIO See_Comment [Automated message] The system which generated this result transmitted reference range: <3.22 RATIO. The reference range was not used to interpret this result as normal/abnormal. TRIGLYCERIDES (test code = 2571-8) 72 MG/DL See_Comment [Automated messa ge] The system which generated this result transmitted reference range: <150 MG/DL. The reference range was not used to interpret this result as normal/abnormal. COMPREHENSIVE METABOLIC [id number] 00:00:00* Test Item Value Reference Range Interpretation Comme nts ALBUMIN (test code = 1751-7) 4.3 G/DL See_Comment [Automated messa ge] The system which generated this result transmitted reference range: 3.5-5.2 G/DL. The reference range was not used to interpret this result as normal/abnormal. ALKALINE PHOSPHATASE (test code = 6768-6) 83 U/L See_Comment [Automated message] The system which generated this result transmitted reference range: 40-132 U/L. The reference range was not used to interpret this result as normal/abnormal. BILIRUBIN, TOTAL (test code = 1975-2) <0.2 MG/DL See_Comment [Automated message] The system which generated this result transmitted reference range: <=1.2 MG/DL. The reference range was not used to interpret this result as normal/abnormal. BUN (test code = 3094-0) 60 MG/DL See_Comment H [Automated messa ge] The system which generated this result transmitted reference range: 6-20 MG/DL. The reference range was not used to interpret this result as normal/abnormal. CALCIUM (test code = 32610-9) 9.3 MG/DL See_Comment [Automated messa ge] The system which generated this result transmitted reference range: 8.5-10.5 MG/DL. The reference range was not used to interpret this result as normal/abnormal. CALC A/G RATIO (test code = 1759-0) 1.5 RATIO See_Comment [Automated messa ge] The system which generated this result transmitted reference range: 1.0-2.6 RATIO. The reference range was not used to interpret this result as normal/abnormal. CALC BUN/CREAT (test code = 3097-3) 23 RATIO See_Comment [Automated messa ge] The system which generated this result transmitted reference range: 6-28 RATIO. The reference range was not used to interpret this result as normal/abnormal. CALC GLOBULIN (test code = 21434-8) 2.8 G/DL See_Comment [Automated messa ge] The system which generated this result transmitted reference range: 1.9-3.7 G/DL. The reference range was not used to interpret this result as normal/abnormal. CARBON DIOXIDE (test code = 1963-8) 18 MEQ/L See_Comment L [Automated messa ge] The system which generated this result transmitted reference range: 19-31 MEQ/L. The reference range was not used to interpret this result as normal/abnormal. CHLORIDE (test code = 2075-0) 108 MEQ/L See_Comment H [Automated messa ge] The system which generated this result transmitted reference range: 95-107 MEQ/L. The reference range was not used to interpret this result as normal/abnormal. CREATININE (test code = 2160-0) 2.62 MG/DL See_Comment H [Automated messa ge] The system which generated this result transmitted reference range: 0.60-1.30 MG/DL. The reference range was not used to interpret this result as normal/abnormal. eGFR (2020 CKD-EPI) (test code = 07191-4) 21 ML/MIN/1.73 See_Comment L [Automated messa ge] The system which generated this result transmitted reference range: >60 ML/MIN/1.73. The reference range was not used to interpret this result as normal/abnormal. GLUCOSE (test code = 1558-6) 153 MG/DL See_Comment H [Automated messa ge] The system which generated this result transmitted reference range: 70-99 MG/DL. The reference range was not used to interpret this result as normal/abnormal. POTASSIUM (test code = 2823-3) 6.1 MEQ/L See_Comment H [Automated messa ge] The system which generated this result transmitted reference range: 3.5-5.4 MEQ/L. The reference range was not used to interpret this result as normal/abnormal. PROTEIN, TOTAL (test code = 2885-2) 7.1 G/DL See_Comment [Automated messa ge] The system which generated this result transmitted reference range: 6.1-8.3 G/DL. The reference range was not used to interpret this result as normal/abnormal. AST (test code = 1920-8) 17 U/L See_Comment [Automated messa ge] The system which generated this result transmitted reference range: 9-40 U/L. The reference range was not used to interpret this result as normal/abnormal. ALT (test code = 1742-6) 13 U/L See_Comment [Automated messa ge] The system which generated this result transmitted reference range: 5-40 U/L. The reference range was not used to interpret this result as normal/abnormal. SODIUM (test code = 2951-2) 139 MEQ/L See_Comment [Automated messa ge] The system which generated this result transmitted reference range: 133-146 MEQ/L. The reference range was not used to interpret this result as normal/abnormal. PATHOLOGIST SMEAR [id number] 00:00:00* Test Item Value Reference Range Interpretation Comme nts BASOPHILS (test code = 77634-7) 0.8 % DIAGNOSIS: (test code = 59378-1) (NOTE) COMMENTS (test code = 33927-9) (NOTE) EOSINOPHILS (test code = 04093-5) 2.5 % HEMATOCRIT (test code = 61047-8) 24.6 % See_Comment L [Automated messa ge] The system which generated this result transmitted reference range: 34.0-45.0 %. The reference range was not used to interpret this result as normal/abnormal. HEMOGLOBIN (test code = 718-7) 8.1 G/DL See_Comment L [Automated messa ge] The system which generated this result transmitted reference range: 11.5-15.5 G/DL. The reference range was not used to interpret this result as normal/abnormal. LYMPHOCYTES (test code = 00921-2) 40.7 % MCH (test code = 36046-6) 29.6 PG See_Comment [Automated messa ge] The system which generated this result transmitted reference range: 25.0-33.0 PG. The reference range was not used to interpret this result as normal/abnormal. MCHC (test code = 11989-0) 32.9 G/DL See_Comment [Automated messa ge] The system which generated this result transmitted reference range: 31.0-36.0 G/DL. The reference range was not used to interpret this result as normal/abnormal. MCV (test code = 57800-2) 89.8 fL See_Comment [Automated messa ge] The system which generated this result transmitted reference range: 80.0-99.0 fL. The reference range was not used to interpret this result as normal/abnormal. MICROSCOPIC DESCRIPTION: (test code = 82979-0) (NOTE) MONOCYTES (test code = 72512-0) 3.4 % NEUTROPHILS (test code = 53879-0) 52.6 % PATHOLOGIST: (test code = 22804-1) (NOTE) PLATELET COUNT (test code = 49048-3) 241 K/UL See_Comment [Automated messa ge] The system which generated this result transmitted reference range: 130-400 K/UL. The reference range was not used to interpret this result as normal/abnormal. RBC (test code = 21577-5) 2.74 M/UL See_Comment L [Automated messa ge] The system which generated this result transmitted reference range: 3.80-5.40 M/UL. The reference range was not used to interpret this result as normal/abnormal. RDW (test code = 33176-2) 13.5 % See_Comment [Automated [employer] ge] The system which generated this result transmitted reference range: 11.5-15.0 %. The reference range was not used to interpret this result as normal/abnormal. WBC (test code = 56880-4) 6.3 K/UL See_Comment [Automated messa ge] The system which generated this result transmitted reference range: 3.5-11.0 K/UL. The reference range was not used to interpret this result as normal/abnormal. ALBUMIN/CREATININE RATIO, RANDOM [id number] 00:00:00* Test Item Value Reference Range Interpretation Comme nts ALBUMIN, URINE, RANDOM (test code = 36811-2) TEST NOT PERFORMED MG/DL NOT ESTAB MG/DL CALC ALBUMIN/CREAT, RND (test code = 20473-2) TEST NOT PERFORMED MG/G See_Comment [Automated message] The system which generated this result transmitted reference range: <30 MG/G. The reference range was not used to interpret this result as normal/abnormal. CREATININE, URINE, CONC. (test code = 2161-8) TEST NOT PERFORMED MG/DL NOT ESTAB MG/DL VITAMIN D, 25 [id number] 00:00:00* Test Item Value Reference Range Interpretation Comme nts VITAMIN D, 25 OH (test code = 1989-3) 26 NG/ML SEE BELOW NG/ML L [id number] 00:00:00* Test Item Value Reference Range Interpretation Comme nts FERRITIN (test code = 67942-0) 87 NG/ML See_Comment [Automated eSpace[employer] ge] The system which generated this result transmitted reference range: 13-200 NG/ML. The reference range was not used to interpret this result as normal/abnormal. [id number] 00:00:00* Test Item Value Reference Range Interpretation Comme nts FERRITIN (test code = 09128-2) 65 NG/ML See_Comment [Automated [employer] ge] The system which generated this result transmitted reference range: 13-200 NG/ML. The reference range was not used to interpret this result as normal/abnormal. HEMOGLOBIN [id number] 00:00:00* Test Item Value Reference Range Interpretation [facility] HEMOGLOBIN A1c (test code = 4548-4) 8.0 % See_Comment H [Automated eSpace[employer] ge] The system which generated this result transmitted reference range: 4.2-5.6 %. The reference range was not used to interpret this result as normal/abnormal. VITAMIN D, 25 [id number] 00:00:00* Test Item Value Reference Range Interpretation [facility] VITAMIN D, 25 OH (test code = 1989-3) 22 NG/ML SEE BELOW NG/ML L LIPID PANEL WITH REFLEX DIRECT [id number] 00:00:00* Test Item Value Reference Range Interpretation [facility] CALC LDL CHOL (test code = 12924-9) 84 MG/DL See_Comment [Automated [employer] ge] The system which generated this result transmitted reference range: <100 MG/DL. The reference range was not used to interpret this result as normal/abnormal. CHOLESTEROL (test code = 2093-3) 156 MG/DL See_Comment [Automated [employer] ge] The system which generated this result transmitted reference range: <200 MG/DL. The reference range was not used to interpret this result as normal/abnormal. HDL CHOLESTEROL (test code = 2085-9) 58 MG/DL See_Comment [Automated [employer] ge] The system which generated this result transmitted reference range: >39 MG/DL. The reference range was not used to interpret this result as normal/abnormal. RISK RATIO LDL/HDL (test code = 81633-9) 1.45 RATIO See_Comment [Automated message] The system which generated this result transmitted reference range: <3.22 RATIO. The reference range was not used to interpret this result as normal/abnormal. TRIGLYCERIDES (test code = 2571-8) 55 MG/DL See_Comment [Automated [employer] ge] The system which generated this result transmitted reference range: <150 MG/DL. The reference range was not used to interpret this result as normal/abnormal. PATHOLOGIST SMEAR [id number] 00:00:00* Test Item Value Reference Range Interpretation [facility] BASOPHILS (test code = 48301-5) 0.8 % DIAGNOSIS: (test code = 74124-0) (NOTE) COMMENTS (test code = 67281-5) (NOTE) EOSINOPHILS (test code = 20109-9) 1.3 % HEMATOCRIT (test code = 96987-0) 23.9 % See_Comment L [Automated messa ge] The system which generated this result transmitted reference range: 34.0-45.0 %. The reference range was not used to interpret this result as normal/abnormal. HEMOGLOBIN (test code = 718-7) 7.8 G/DL See_Comment L [Automated messa ge] The system which generated this result transmitted reference range: 11.5-15.5 G/DL. The reference range was not used to interpret this result as normal/abnormal. LYMPHOCYTES (test code = 11817-7) 19.4 % MCH (test code = 10565-1) 28.9 PG See_Comment [Automated messa ge] The system which generated this result transmitted reference range: 25.0-33.0 PG. The reference range was not used to interpret this result as normal/abnormal. MCHC (test code = 26553-1) 32.6 G/DL See_Comment [Automated messa ge] The system which generated this result transmitted reference range: 31.0-36.0 G/DL. The reference range was not used to interpret this result as normal/abnormal. MCV (test code = 10498-8) 88.5 fL See_Comment [Automated messa ge] The system which generated this result transmitted reference range: 80.0-99.0 fL. The reference range was not used to interpret this result as normal/abnormal. MICROSCOPIC DESCRIPTION: (test code = 22003-2) (NOTE) MONOCYTES (test code = 37735-0) 7.9 % NEUTROPHILS (test code = 71397-0) 70.2 % NUCLEATED RBCS (test code = 17510-4) 0.0 /100 WBC'S See_Comment [Automated messa ge] The system which generated this result transmitted reference range: 0.0 /100 WBC'S. The reference range was not used to interpret this result as normal/abnormal. PATHOLOGIST: (test code = 74505-5) (NOTE) PLATELET COUNT (test code = 31164-3) 239 K/UL See_Comment [Automated messa ge] The system which generated this result transmitted reference range: 130-400 K/UL. The reference range was not used to interpret this result as normal/abnormal. RBC (test code = 65000-7) 2.70 M/UL See_Comment L [Automated messa ge] The system which generated this result transmitted reference range: 3.80-5.40 M/UL. The reference range was not used to interpret this result as normal/abnormal. RDW (test code = 07405-2) 13.0 % See_Comment [Automated messa ge] The system which generated this result transmitted reference range: 11.5-15.0 %. The reference range was not used to interpret this result as normal/abnormal. WBC (test code = 38985-5) 5.2 K/UL See_Comment [Automated messa ge] The system which generated this result transmitted reference range: 3.5-11.0 K/UL. The reference range was not used to interpret this result as normal/abnormal. IRON BINDING CAPACITY AND IRON AND % [id number] 00:00:00* Test Item Value Reference Range Interpretation Comme nts CALC % IRON SAT (test code = 2502-3) 18 % See_Comment L [Automated messa ge] The system which generated this result transmitted reference range: 20-50 %. The reference range was not used to interpret this result as normal/abnormal. CALC TOTAL IBC (test code = 51714-4) 259 UG/DL See_Comment [Automated messa ge] The system which generated this result transmitted reference range: 250-450 UG/DL. The reference range was not used to interpret this result as normal/abnormal. IRON, SERUM (test code = 2498-4) 46 UG/DL See_Comment [Automated messa ge] The system which generated this result transmitted reference range: 37-145 UG/DL. The reference range was not used to interpret this result as normal/abnormal. UNSATURATED IBC (test code = 2501-5) 213 UG/DL See_Comment [Automated messa ge] The system which generated this result transmitted reference range: 112-347 UG/DL. The reference range was not used to interpret this result as normal/abnormal. ALBUMIN/CREATININE RATIO, RANDOM [id number] 00:00:00* Test Item Value Reference Range Interpretation Comme nts ALBUMIN, URINE, RANDOM (test code = 57546-7) 33.5 MG/DL NOT ESTAB MG/DL CALC ALBUMIN/CREAT, RND (test code = 58652-9) 614 MG/G See_Comment H [Automated messa ge] The system which generated this result transmitted reference range: <30 MG/G. The reference range was not used to interpret this result as normal/abnormal. CREATININE, URINE, CONC. (test code = 2161-8) 54.6 MG/DL NOT ESTAB MG/DL COMPREHENSIVE METABOLIC [id number] 00:00:00* Test Item Value Reference Range Interpretation Comme nts ALBUMIN (test code = 1751-7) 4.1 G/DL See_Comment [Automated messa ge] The system which generated this result transmitted reference range: 3.5-5.2 G/DL. The reference range was not used to interpret this result as normal/abnormal. ALKALINE PHOSPHATASE (test code = 6768-6) 79 U/L See_Comment [Automated message] The system which generated this result transmitted reference range: 40-130 U/L. The reference range was not used to interpret this result as normal/abnormal. BILIRUBIN, TOTAL (test code = 1975-2) 0.2 MG/DL See_Comment [Automated message] The system which generated this result transmitted reference range: <=1.2 MG/DL. The reference range was not used to interpret this result as normal/abnormal. BUN (test code = 3094-0) 47 MG/DL See_Comment H [Automated messa ge] The system which generated this result transmitted reference range: 6-20 MG/DL. The reference range was not used to interpret this result as normal/abnormal. CALCIUM (test code = 40162-2) 9.0 MG/DL See_Comment [Automated messa ge] The system which generated this result transmitted reference range: 8.5-10.5 MG/DL. The reference range was not used to interpret this result as normal/abnormal. CALC A/G RATIO (test code = 1759-0) 1.6 RATIO See_Comment [Automated eSpacea ge] The system which generated this result transmitted reference range: 1.0-2.6 RATIO. The reference range was not used to interpret this result as normal/abnormal. CALC BUN/CREAT (test code = 3097-3) 22 RATIO See_Comment [Automated messa ge] The system which generated this result transmitted reference range: 6-28 RATIO. The reference range was not used to interpret this result as normal/abnormal. CALC GLOBULIN (test code = 22768-0) 2.5 G/DL See_Comment [Automated messa ge] The system which generated this result transmitted reference range: 1.9-3.7 G/DL. The reference range was not used to interpret this result as normal/abnormal. CARBON DIOXIDE (test code = 1963-8) 20 MEQ/L See_Comment [Automated messa ge] The system which generated this result transmitted reference range: 19-31 MEQ/L. The reference range was not used to interpret this result as normal/abnormal. CHLORIDE (test code = 2075-0) 111 MEQ/L See_Comment H [Automated messa ge] The system which generated this result transmitted reference range: 95-107 MEQ/L. The reference range was not used to interpret this result as normal/abnormal. CREATININE (test code = 2160-0) 2.10 MG/DL See_Comment H [Automated messa ge] The system which generated this result transmitted reference range: 0.60-1.30 MG/DL. The reference range was not used to interpret this result as normal/abnormal. eGFR (2020 CKD-EPI) (test code = 43994-8) 28 ML/MIN/1.73 See_Comment L [Automated messa ge] The system which generated this result transmitted reference range: >60 ML/MIN/1.73. The reference range was not used to interpret this result as normal/abnormal. GLUCOSE (test code = 1558-6) 234 MG/DL See_Comment H [Automated messa ge] The system which generated this result transmitted reference range: 70-99 MG/DL. The reference range was not used to interpret this result as normal/abnormal. POTASSIUM (test code = 2823-3) 5.9 MEQ/L See_Comment H [Automated messa ge] The system which generated this result transmitted reference range: 3.5-5.4 MEQ/L. The reference range was not used to interpret this result as normal/abnormal. PROTEIN, TOTAL (test code = 2885-2) 6.6 G/DL See_Comment [Automated messa ge] The system which generated this result transmitted reference range: 6.1-8.3 G/DL. The reference range was not used to interpret this result as normal/abnormal. AST (test code = 1920-8) 12 U/L See_Comment [Automated Clickst] The system which generated this result transmitted reference range: 9-40 U/L. The reference range was not used to interpret this result as normal/abnormal. ALT (test code = 1742-6) 13 U/L See_Comment [Automated Clickst] The system which generated this result transmitted reference range: 5-40 U/L. The reference range was not used to interpret this result as normal/abnormal. SODIUM (test code = 2951-2) 141 MEQ/L See_Comment [Automated Clickst] The system which generated this result transmitted reference range: 133-146 MEQ/L. The reference range was not used to interpret this result as normal/abnormal. Transthoracic echo (TTE)2023-03-16 01:11:44* Test Item Value Reference Range Interpretation Comme nts Height (test code = 6664292513) 62 in Weight (test code = 7766706205) 190 lbs Systolic BP (test code = 5279608243) 154 mmHg Diastolic BP (test code = 8343809180) 66 mmHg Heart Rate (test code = 9678390961) 75 bpm MR max PG (test code = 3638469033) 45.30 mm[Hg] MR max frank (test code = 9041848016) 336.60 cm/s Ao root diam (test code = 9610100893) 2.60 cm Mr max frank (test code = 0223672530) 336.6 m/s Aortic root (test code = 8442513144) 2.6 cm Ao root annulus (test code = 1352880132) 2.6 cm BSA (test code = 6997148697) 1.87 m2 LVOT diameter (test code = 9116849427) 2.03 cm LVOT area (test code = 0946507396) 3.20 cm2 LA size (test code = 3038584772) 4.8 cm ACS (test code = 6919289234) 2.06 cm TR Peak Frank (test code = 5004952661) 276.7 cm/s Triscuspid Valve Regurgitation Peak Gradient (test code = 7942678884) 33.4 mmHg PV PEAK VELOCITY (test code = 1366405518) 110.6 cm/s PV peak gradient (test code = 2932385709) 4.9 mmHg LVIDD (test code = 3158558810) 5.70 cm Left Ventricular End Diastolic Volume by Teichholz Method (test code = 6925064) 160.8 mL IVS (test code = 8025437153) 1.34 cm Interventricular Septum Diastolic Thickness by 2D (test code = 8498052) 1.34 cm LVPWD (test code = 6761267827) 1.32 cm PW (test code = 0190824371) 1.32 cm 0.6-1.1 EF(Teich) (test code = 3511715595) 41.40 % LVIDS (test code = 6326107214) 4.50 cm Left Ventricular End Systolic Volume by Teichholz Method (test code = 6822986) 94.3 mL FS (test code = 7376131786) 21 % EF - 2D (test code = 17636682) 41.40 % LAV(MOD-sp4) (test code = 2200347773) 57.80 mL MV E-F slope (test code = 3489616075) 45.50 cm/s MV Peak E Frank (test code = 1889649507) 152.0 cm/s MV Peak A Frank (test code = 5208583419) 122.6 cm/s E/A ratio (test code = 0086651792) 1.24 ratio MV valve area p 1/2 method (test code = 5272782219) 4.00 cm2 MV dec slope (test code = 8919435524) 790.90 cm/s2 MV P1/2t max frank (test code = 6040392988) 149.90 cm/s LVOT stroke volume (test code = 9683935849) 88.30 cm3 LVOT peak frank (test code = 9589641892) 115.8 cm/s LVOT mn grad (test code = 7150639949) 2.6 mmHg AV LVOT peak gradient (test code = 1208091763) 5.4 mmHg LVOT peak VTI (test code = 2105675244) 27.4 cm LV V1 mean (test code = 7324721520) 74.60 cm/s Aortic valve mean velocity (test code = 0968334931) 125.7 cm/s Ao peak frank (test code = 1822422929) 209.3 cm/s Ao VTI (test code = 4432521937) 46.2 cm AV area by cont VTI (test code = 3737338957) 1.9 cm2 AV area peak farnk (test code = 2604062844) 1.8 cm2 Ao max PG (test code = 0565521150) 17.50 mm[Hg] AV peak gradient (test code = 9227191212) 17.5 mmHg AV valve area (test code = 5413656338) 1.91 cm2 AV mean gradient (test code = 5629045679) 7.4 mmHg LA Volume Index (BP) (test code = 9953076564) 28.9 mL/m2 LA volume (BP) (test code = 2539055427) 54.0 mL LAV(MOD-sp2) (test code = 1422493604) 45.60 mL Radiology Study observation (narrative) (test code = 76230-7) ROSEMARIE (test code = ROSEMARIE) ?Left?Ventricle: Left ventricle is mildly dilated. Mildly increased wall thickness. Mild global hypokinesis present. Mildly reduced systolic function with a visually estimated EF of 40 - 45%. Diastolic dysfunction. ?Left?Atrium: Left atrium is moderately dilated. ?Aorta: Mildly enlarged ascending aorta (3.3 cm). ?Tricuspid?Valve: Trace transvalvular regurgitation. Right ventricular systolic pressure is 30-35 mmHg. ?RA pressure is 0-5 mmHg. ?Pericardium: Trivial pericardial effusion present. Left VentricleLeft ventricle is mildly dilated. Mildly increased wall thickness. Mild global hypokinesis present. Mildly reduced systolic function with a visually estimated EF of 40 - 45%. Diastolic dysfunction.Right VentricleRight ventricle size is normal. Normal systolic function.Left AtriumLeft atrium is moderately dilated.Right AtriumRight atrium size is normal.Mitral ValveMildly thickened leaflets. Mild mitral annular calcification. Trace transvalvular regurgitation.Tricusp id ValveTricuspid valve structure is normal. Trace transvalvular regurgitation. Right ventricular systolic pressure is 30-35 mmHg. RA pressure is 0-5 mmHg.Aortic ValveTricuspid. Mildly thickened cusps.Pulmonic ValvePulmonic valve is grossly normal in structure and function. Trace transvalvular regurgitation.Ascendi ng AortaMildly enlarged ascending aorta (3.3 cm).PericardiumTrivia l pericardial effusion present.Study DetailsStudy quality was adequate. A complete echocardiogram was performed using 2D, color flow Doppler and spectral Doppler. [facility] W/AUTO [id number] 00:00:00* Test Item Value Reference Range Interpretation Comme nts NUCLEATED RBCS (test code = 89055-8) 0.0 /100 WBC'S See_Comment [Automated messa ge] The system which generated this result transmitted reference range: 0.0 /100 WBC'S. The reference range was not used to interpret this result as normal/abnormal. ABSOLUTE EOSINOPHILS (test code = 36570-8) 0.08 K/UL See_Comment [Automated messa ge] The system which generated this result transmitted reference range: 0.00-0.50 K/UL. The reference range was not used to interpret this result as normal/abnormal. ABSOLUTE LYMPHOCYTES (test code = 09577-4) 1.10 K/UL See_Comment [Automated messa ge] The system which generated this result transmitted reference range: 1.00-4.00 K/UL. The reference range was not used to interpret this result as normal/abnormal. ABSOLUTE MONOCYTES (test code = 29084-7) 0.40 K/UL See_Comment [Automated messa ge] The system which generated this result transmitted reference range: 0.20-1.00 K/UL. The reference range was not used to interpret this result as normal/abnormal. ABSOLUTE NEUTROPHILS (test code = 59703-7) 3.97 K/UL See_Comment [Automated messa ge] The system which generated this result transmitted reference range: 1.50-7.50 K/UL. The reference range was not used to interpret this result as normal/abnormal. BASOPHILS (test code = 84937-6) 0.7 % EOSINOPHILS (test code = 26813-0) 1.4 % HEMATOCRIT (test code = 89721-7) 24.2 % See_Comment L [Automated messa ge] The system which generated this result transmitted reference range: 34.0-45.0 %. The reference range was not used to interpret this result as normal/abnormal. HEMOGLOBIN (test code = 718-7) 8.0 G/DL See_Comment L [Automated messa ge] The system which generated this result transmitted reference range: 11.5-15.5 G/DL. The reference range was not used to interpret this result as normal/abnormal. LYMPHOCYTES (test code = 69472-0) 19.6 % MCH (test code = 68471-7) 30.3 PG See_Comment [Automated messa ge] The system which generated this result transmitted reference range: 25.0-33.0 PG. The reference range was not used to interpret this result as normal/abnormal. MCHC (test code = 18650-1) 33.1 G/DL See_Comment [Automated messa ge] The system which generated this result transmitted reference range: 31.0-36.0 G/DL. The reference range was not used to interpret this result as normal/abnormal. MCV (test code = 19009-5) 91.7 fL See_Comment [Automated messa ge] The system which generated this result transmitted reference range: 80.0-99.0 fL. The reference range was not used to interpret this result as normal/abnormal. MONOCYTES (test code = 79879-0) 7.1 % NEUTROPHILS (test code = 64081-3) 70.8 % PLATELET COUNT (test code = 98646-1) 269 K/UL See_Comment [Automated messa ge] The system which generated this result transmitted reference range: 130-400 K/UL. The reference range was not used to interpret this result as normal/abnormal. RBC (test code = 72520-2) 2.64 M/UL See_Comment L [Automated messa ge] The system which generated this result transmitted reference range: 3.80-5.40 M/UL. The reference range was not used to interpret this result as normal/abnormal. RDW (test code = 83431-0) 13.1 % See_Comment [Automated messa ge] The system which generated this result transmitted reference range: 11.5-15.0 %. The reference range was not used to interpret this result as normal/abnormal. WBC (test code = 70694-6) 5.6 K/UL See_Comment [Automated messa ge] The system which generated this result transmitted reference range: 3.5-11.0 K/UL. The reference range was not used to interpret this result as normal/abnormal. URIC [id number] 00:00:00* Test Item Value Reference Range Interpretation Comme nts URIC ACID (test code = 2501-5) 7.4 MG/DL See_Comment H [Automated messa ge] The system which generated this result transmitted reference range: 2.7-6.1 MG/DL. The reference range was not used to interpret this result as normal/abnormal. HEMOGLOBIN [id number] 00:00:00* Test Item Value Reference Range Interpretation Comme nts HEMOGLOBIN A1c (test code = 4548-4) 8.1 % See_Comment H [Automated eSpacea MooBella] The system which generated this result transmitted reference range: 4.2-5.6 %. The reference range was not used to interpret this result as normal/abnormal. TSH REFLEX TO FREE [id number] 00:00:00* Test Item Value Reference Range Interpretation Comme nts TSH REFLEX TO FREE T4 (test code = 87012-3) 1.770 UIU/ML See_Comment [Automated messa MooBella] The system which generated this result transmitted reference range: 0.400-4.100 UIU/ML. The reference range was not used to interpret this result as normal/abnormal. URINALYSIS (CULTURE IF INDICATED)2023-02-23 00:00:00* Test Item Value Reference Range Interpretation Comme nts APPEARANCE (test code = 5767-9) CLEAR CLEAR BACTERIA (test code = 06634-1) 3+ NONE SEEN A BILIRUBIN (test code = 5770-3) NEGATIVE NEGATIVE CASTS, HYALINE (test code = 71464-3) NONE SEEN NONE-TRACE COLOR (test code = 5778-6) YELLOW YELLOW-STRAW EPITHELIAL CELLS (test code = 41148-7) 0-5 /HPF See_Comment [Automated [employer] Moo[employer]ella] The system which generated this result transmitted reference range: 0-10 /HPF. The reference range was not used to interpret this result as normal/abnormal. GLUCOSE (test code = 5792-7) NEGATIVE NEGATIVE KETONES (test code = 5797-6) NEGATIVE NEGATIVE LEUKOCYTE ESTERASE (test code = 5799-2) 2+ NEGATIVE A NITRITE (test code = 5802-4) NEGATIVE NEGATIVE OCCULT BLOOD (test code = 17818-7) NEGATIVE NEGATIVE pH (test code = 5803-2) 6.0 5.0-9.0 PROTEIN (test code = 25334-0) 1+ NEGATIVE A RED BLOOD CELLS (test code = 51146-8) 0-2 /HPF See_Comment [Automated messa ge] The system which generated this result transmitted reference range: 0-2 /HPF. The reference range was not used to interpret this result as normal/abnormal. SPECIFIC GRAVITY (test code = 5811-5) 1.011 1.005-1.035 UROBILINOGEN (test code = 09348-6) 0.2 MG/DL See_Comment [Automated messa ge] The system which generated this result transmitted reference range: <=2.0 MG/DL. The reference range was not used to interpret this result as normal/abnormal. WHITE BLOOD CELLS (test code = 03418-1) >50 /HPF See_Comment A [Automated messa ge] The system which generated this result transmitted reference range: 0-5 /HPF. The reference range was not used to interpret this result as normal/abnormal. LIPID PANEL WITH REFLEX DIRECT [id number] 00:00:00* Test Item Value Reference Range Interpretation Comme nts CALC LDL CHOL (test code = 98649-9) 77 MG/DL See_Comment [Automated eSpacea ge] The system which generated this result transmitted reference range: <100 MG/DL. The reference range was not used to interpret this result as normal/abnormal. CHOLESTEROL (test code = 2093-3) 162 MG/DL See_Comment [Automated messa ge] The system which generated this result transmitted reference range: <200 MG/DL. The reference range was not used to interpret this result as normal/abnormal. HDL CHOLESTEROL (test code = 2085-9) 74 MG/DL See_Comment [Automated eSpacea ge] The system which generated this result transmitted reference range: >39 MG/DL. The reference range was not used to interpret this result as normal/abnormal. RISK RATIO LDL/HDL (test code = 08703-9) 1.04 RATIO See_Comment [Automated message] The system which generated this result transmitted reference range: <3.22 RATIO. The reference range was not used to interpret this result as normal/abnormal. TRIGLYCERIDES (test code = 2571-8) 37 MG/DL See_Comment [Automated messa ge] The system which generated this result transmitted reference range: <150 MG/DL. The reference range was not used to interpret this result as normal/abnormal. ALBUMIN/CREATININE RATIO, RANDOM [id number] 00:00:00* Test Item Value Reference Range Interpretation Comme nts ALBUMIN, URINE, RANDOM (test code = 93629-3) 15.2 MG/DL NOT ESTAB MG/DL CALC ALBUMIN/CREAT, RND (test code = 36433-2) 234 MG/G See_Comment H [Automated messa ge] The system which generated this result transmitted reference range: <30 MG/G. The reference range was not used to interpret this result as normal/abnormal. CREATININE, URINE, CONC. (test code = 2161-8) 65.0 MG/DL NOT ESTAB MG/DL COMPREHENSIVE METABOLIC [id number] 00:00:00* Test Item Value Reference Range Interpretation Comme nts ALBUMIN (test code = 1751-7) 4.0 G/DL See_Comment [Automated messa ge] The system which generated this result transmitted reference range: 3.5-5.2 G/DL. The reference range was not used to interpret this result as normal/abnormal. ALKALINE PHOSPHATASE (test code = 6768-6) 78 U/L See_Comment [Automated message] The system which generated this result transmitted reference range: 40-130 U/L. The reference range was not used to interpret this result as normal/abnormal. BILIRUBIN, TOTAL (test code = 1975-2) <0.2 MG/DL See_Comment [Automated message] The system which generated this result transmitted reference range: <=1.2 MG/DL. The reference range was not used to interpret this result as normal/abnormal. BUN (test code = 3094-0) 51 MG/DL See_Comment H [Automated messa ge] The system which generated this result transmitted reference range: 6-20 MG/DL. The reference range was not used to interpret this result as normal/abnormal. CALCIUM (test code = 35470-1) 9.1 MG/DL See_Comment [Automated messa ge] The system which generated this result transmitted reference range: 8.5-10.5 MG/DL. The reference range was not used to interpret this result as normal/abnormal. CALC A/G RATIO (test code = 1759-0) 1.5 RATIO See_Comment [Automated eSpacea ge] The system which generated this result transmitted reference range: 1.0-2.6 RATIO. The reference range was not used to interpret this result as normal/abnormal. CALC BUN/CREAT (test code = 3097-3) 24 RATIO See_Comment [Automated messa ge] The system which generated this result transmitted reference range: 6-28 RATIO. The reference range was not used to interpret this result as normal/abnormal. CALC GLOBULIN (test code = 76017-7) 2.6 G/DL See_Comment [Automated messa ge] The system which generated this result transmitted reference range: 1.9-3.7 G/DL. The reference range was not used to interpret this result as normal/abnormal. CARBON DIOXIDE (test code = 1963-8) 18 MEQ/L See_Comment L [Automated messa ge] The system which generated this result transmitted reference range: 19-31 MEQ/L. The reference range was not used to interpret this result as normal/abnormal. CHLORIDE (test code = 2075-0) 109 MEQ/L See_Comment H [Automated messa ge] The system which generated this result transmitted reference range: 95-107 MEQ/L. The reference range was not used to interpret this result as normal/abnormal. CREATININE (test code = 2160-0) 2.17 MG/DL See_Comment H [Automated messa ge] The system which generated this result transmitted reference range: 0.60-1.30 MG/DL. The reference range was not used to interpret this result as normal/abnormal. eGFR (2020 CKD-EPI) (test code = 88128-3) 27 ML/MIN/1.73 See_Comment L [Automated messa ge] The system which generated this result transmitted reference range: >60 ML/MIN/1.73. The reference range was not used to interpret this result as normal/abnormal. GLUCOSE (test code = 1558-6) 167 MG/DL See_Comment H [Automated messa ge] The system which generated this result transmitted reference range: 70-99 MG/DL. The reference range was not used to interpret this result as normal/abnormal. POTASSIUM (test code = 2823-3) 5.6 MEQ/L See_Comment H [Automated messa ge] The system which generated this result transmitted reference range: 3.5-5.4 MEQ/L. The reference range was not used to interpret this result as normal/abnormal. PROTEIN, TOTAL (test code = 2885-2) 6.6 G/DL See_Comment [Automated messa ge] The system which generated this result transmitted reference range: 6.1-8.3 G/DL. The reference range was not used to interpret this result as normal/abnormal. AST (test code = 1920-8) 14 U/L See_Comment [Automated messa ge] The system which generated this result transmitted reference range: 9-40 U/L. The reference range was not used to interpret this result as normal/abnormal. ALT (test code = 1742-6) 14 U/L See_Comment [Automated messa ge] The system which generated this result transmitted reference range: 5-40 U/L. The reference range was not used to interpret this result as normal/abnormal. SODIUM (test code = 2951-2) 140 MEQ/L See_Comment [Automated messa ge] The system which generated this result transmitted reference range: 133-146 MEQ/L. The reference range was not used to interpret this result as normal/abnormal. VITAMIN D, 25 [id number] 04:03:03* Test Item Value Reference Range Interpretation Comme [facility] VITAMIN D, 25 OH (test code = 4958) 29 NG/ML SEE BELOW L NOTE: 25-HYDR OXYVITAMIN D ASSAY INCLUDES 25-HYDROXYVITAMIN D2 AND D3. METHODOLOGY IS CHEMILUMINESCENT IMMUNOASSAY. INTERPRETIVE RANGES PEDIATRIC (<17 YEARS) . . . . . . . . . . . NG/ML 20-100ADULT: INSUFFICIENT . . . . . . . . . . . . . . NG/ML <20 SUBOPTIMAL . . . . . . . . . . . . . . . NG/ML 20-29 OPTIMAL . . . . . . . . . . . . . . . . . NG/ML 30-100 UNLESS OTHERWISE INDICATED, ALL TESTING PERFORMED [facility] [address] [place] [id number] SLIDE FORMING MACHINE OPERATOR: BEN KRAMER M.D. CLIA NUMBER [id number] [facility] [place]. [id number] TSH, THIRD [id number] 02:32:59* Test Item Value Reference Range Interpretation Comme [facility] TSH, THIRD GENERATION (test code = 2821) 2.200 UIU/ML 0.400-4.100 LIPID [id number] 02:17:59* Test Item Value Reference Range Interpretation Comme nts CHOLESTEROL (test code = 2210) 169 MG/DL <200 TRIGLYCERIDES (test code = 2232) 76 MG/DL <150 HDL CHOLESTEROL (test code = 2220) 56 MG/DL >39 CALC LDL CHOL (test code = 2237) 96 MG/DL <100 NOTE: CALCULATED LDL IS BASED ON DONNELL-GARCIA METHOD WHICHINCLUDES ADJUSTABLE TRIGLYCERIDE:VLDL CHOLESTEROL RATIO.THIS FACTOR VARIES BY MEASURED TRIGLYCERIDE AND NON-HDLCHOLESTEROL CONCENTRATIONS WITH INCREASED CALCULATED LDL SEENIN HIGHER TRIGLYCERIDE OR LOWER NON-HDL SPECIMENS. FOR MOREINFORMATION, SEE CLIENT ANNOUNCEMENT AT [email or web address] [email or web address] RATIO LDL/HDL (test code = 2238) 1.71 RATIO <3.22 COMPREHENSIVE METABOLIC [id number] 02:17:59* Test Item Value Reference Range Interpretation Comme nts GLUCOSE (test code = 2217) 210 MG/DL 70-99 H BUN (test code = 2207) 56 MG/DL 6-20 H CREATININE (test code = 2214) 2.25 MG/DL 0.60-1.30 H eGFR (2020 CKD-EPI) (test code = 52038) 26 ML/MIN/1.73 >60 L CALC BUN/CREAT (test code = 2235) 25 RATIO 6-28 SODIUM (test code = 2231) 141 MEQ/L 133-146 POTASSIUM (test code = 2228) 4.9 MEQ/L 3.5-5.4 CHLORIDE (test code = 2215) 110 MEQ/L 95-107 H CARBON DIOXIDE (test code = 2206) 18 MEQ/L 19-31 L CALCIUM (test code = 2209) 9.1 MG/DL 8.5-10.5 PROTEIN, TOTAL (test code = 222) 6.6 G/DL 6.1-8.3 ALBUMIN (test code = 2201) 3.8 G/DL 3.5-5.2 CALC GLOBULIN (test code = 2240) 2.8 G/DL 1.9-3.7 CALC A/G RATIO (test code = 2234) 1.4 RATIO 1.0-2.6 BILIRUBIN, TOTAL (test code = 2206) <0.2 MG/DL See_Comment [Automated me ssage] The system which generated this result transmitted reference range: <=1.2. The reference range was not used to interpret this result as normal/abnormal. ALKALINE PHOSPHATASE (test code = 2204) 68 U/L 40-128 AST (test code = 2218) 14 U/L 9-40 ALT (test code = 2219) 12 U/L 5-40 CBC W/AUTO DIFF WITH [id number] 03:08:01* Test Item Value Reference Range Interpretation Comme nts WBC (test code = 1001) 6.3 K/UL 3.5-11.0 RBC (test code = 1002) 2.86 M/UL 3.80-5.40 L HEMOGLOBIN (test code = 1003) 8.4 G/DL 11.5-15.5 L HEMATOCRIT (test code = 1004) 26.0 % 34.0-45.0 L MCV (test code = 1005) 90.9 fL 80.0-99.0 MCH (test code = 1006) 29.4 PG 25.0-33.0 MCHC (test code = 1007) 32.3 G/DL 31.0-36.0 RDW (test code = 1038) 12.7 % 11.5-15.0 NEUTROPHILS (test code = 1008) 66.1 % LYMPHOCYTES (test code = 1010) 21.1 % MONOCYTES (test code = 1011) 10.2 % EOSINOPHILS (test code = 1012) 1.6 % BASOPHILS (test code = 1013) 0.8 % IMMATURE GRANULOCYTES (test code = 1036) 0.2 % NUCLEATED RBCS (test code = 1065) 0.0 /100 WBC'S See_Comment [[facility]] The system which generated this result transmitted reference range: 0.0. The reference range was not used to interpret this result as normal/abnormal. PLATELET COUNT (test code = 1015) 282 K/UL 130-400 ABSOLUTE NEUTROPHILS (test code = 1066) 4.16 K/UL 1.50-7.50 ABSOLUTE LYMPHOCYTES (test code = 1067) 1.33 K/UL 1.00-4.00 ABSOLUTE MONOCYTES (test code = 1068) 0.64 K/UL 0.20-1.00 ABSOLUTE EOSINOPHILS (test code = 1040) 0.10 K/UL 0.00-0.50 ABSOLUTE BASOPHILS (test code = 1069) 0.05 K/UL 0.00-0.20 ABS IMMATURE GRANULOCYTES (test code = 1020) 0.01 K/UL 0.00-0.10 ABS NUCLEATED RBCS (test code = 27344) 0.00 K/UL 0.00-0.11 PAP TEST, THINPREP, [id number] 19:30:45* Test Item Value Reference Range Interpretation Comme nts SOURCE: (test code = 8001) Cervical/Endoce rvical SLIDES: (test code = 8011) 1 LMP: (test code = 8021) 10/26/2021 SPECIMEN ADEQUACY: (test code = 30529) (NOTE) Satisfactory for evaluation. Endocervical cells/transformation zone component present. INTERPRETATION: (test code = 80523) NILM/NO EPITH. ABNORMALITY;SEE BELOW --- - NEGATIVE FOR INTRAEPITHELIAL LESION OR MALIGNANCY (NILM) ---- MINERALOGY TEACHER : (test code = 8101) TEETEE River(ASCP) LOCATION: (test code = 01432) (NOTE) Specimens proces sed and interpreted at [facility], [address] [place] [address], , CLIA: [id number] CPT: (test code = 8140) (NOTE) [address] UNLESS OTH ERWISE INDICATED, COMPUTER AIDED AND MINERALOGY TEACHER SCREENING PERFORMED. The Pap test is a screening test with an inherent, but low probability of error. Your patient should be reminded to consult you immediately if she experiences any suspicious signs or symptoms, regardless of her Pap test result. An alternate report format containing images or consolidated prior Pap history is available as applicable. UNLESS OTHERWISE INDICATED, ALL TESTING PERFORMED [facility] [address] [place] [address] SLIDE FORMING MACHINE OPERATOR: BEN KRAMER M.D. CLIA NUMBER [id number] [facility] [place]. [id number] CT/NG, TMA, [id number] 19:19:13* Test Item Value Reference Range Interpretation Comme nts GONORRHEA, TMA (test code = 04998) NEGATIVE NEGATIVE Assay methodolog y is nucleic acid amplification by city detective mediated amplification (TMA) utilizing the Aptima Combo 2 Assay. CHLAMYDIA, TMA (test code = 45755) NEGATIVE NEGATIVE Assay methodolog y is nucleic acid amplification by city detective mediated amplification (TMA) utilizing the Aptima Combo 2 Assay. HPV HIGH RISK WITH GENOTYPE, [id number] 16:29:18* Test Item Value Reference Range Interpretation Comme nts HPV HIGH RISK INTERP (test code = 10022) NEGATIVE NEGATIVE HPV 16 (test code = 35813) NEGATIVE HPV 18 (test code = 65796) NEGATIVE HPV, HR, OTHER GENOTYPES (test code = 70064) NEGATIVE Testing methodol ogy is real-time PCR utilizing hydrolysis probes with the Ariana Joesph 4800 system. The test individually detects genotypes 16 and 18, as well as the other 12 high risk types (31,33,35,39,45,51,52,56 ,58,59,66,68). The expected result is negative. A negative result does not rule out the presence of HPV not included in the genotype set, a low level of infection or specimen sampling error. GC AND CHLAMYDIA AMPLIFIED, [id number] 00:00:00* Test Item Value Reference Range Interpretation Comme nts GONORRHEA, TMA (test code = 19885) NEGATIVE CHLAMYDIA, TMA (test code = 80426) NEGATIVE GC AND CHLAMYDIA AMPLIFIED, [id number] 00:00:00* Test Item Value Reference Range Interpretation Comme nts GONORRHEA, TMA (test code = 62512) NEGATIVE CHLAMYDIA, TMA (test code = 38580) NEGATIVE HPV HIGH RISK WITH GENOTYPE, [id number] 00:00:00* Test Item Value Reference Range Interpretation Comme nts HPV HIGH RISK INTERP (test c ode = 92845) NEGATIVE HPV 16 (test code = 05550) NEGATIVE HPV 18 (test code = 21565) NEGATIVE HPV, HR, OTHER GENOTYPES (te st code = 56527) NEGATIVE HPV HIGH RISK WITH GENOTYPE, [id number] 00:00:00* Test Item Value Reference Range Interpretation Comme nts HPV HIGH RISK INTERP (test c ode = 77381) NEGATIVE HPV 16 (test code = 24068) NEGATIVE HPV 18 (test code = 33433) NEGATIVE HPV, HR, OTHER GENOTYPES (te st code = 21802) NEGATIVE PAP TEST, THINPREP, [id number] 00:00:00* Test Item Value Reference Range Interpretation Comme nts SOURCE: (test code = 8001) Cervical/Endocervical SLIDES: (test code = 8011) 1 LMP: (test code = 8021) 10/26/2021 SPECIMEN ADEQUACY: (test code = 42651) (NOTE) INTERPRETATION: (test code = 42891) NILM/NO EPITH. ABNORMALITY;SEE BELOW MINERALOGY TEACHER: (test code = 8101) Iliana LawrenceCT(ASCP) LOCATION: (test code = 42471) (NOTE) CPT: (test code = 8140) (NOTE) PAP TEST, THINPREP, [id number] 00:00:00* Test Item Value Reference Range Interpretation Comme nts SOURCE: (test code = 800) Cervical/Endocervical SLIDES: (test code = 8011) 1 LMP: (test code = 8021) 10/26/2021 SPECIMEN ADEQUACY: (test code = 97606) (NOTE) INTERPRETATION: (test code = 96868) NILM/NO EPITH. ABNORMALITY;SEE BELOW MINERALOGY TEACHER: (test code = 8101) Iliana LawrenceCT(ASCP) LOCATION: (test code = 09246) (NOTE) CPT: (test code = 8140) (NOTE) URINALYSIS W/REFLEX [id number] 00:00:00* Test Item Value Reference Range Interpretation Comme nts COLOR (test code = 1501) TEST NOT PERFORMED APPEARANCE (test code = 1502) TEST NOT PERFORMED SPECIFIC GRAVITY (test code = 1503) TEST NOT PERFORMED LEUKOCYTE ESTERASE (test code = 1504) TEST NOT PERFORMED NITRITE (test code = 1505) TEST NOT PERFORMED pH (test code = 1506) TEST NOT PERFORMED PROTEIN (test code = 1507) TEST NOT PERFORMED GLUCOSE (test code = 1508) TEST NOT PERFORMED KETONES (test code = 1509) TEST NOT PERFORMED UROBILINOGEN (test code = 1510) TEST NOT PERFORMED MG/DL BILIRUBIN (test code = 1511) TEST NOT PERFORMED OCCULT BLOOD (test code = 1512) TEST NOT PERFORMED URINALYSIS W/REFLEX [id number] 00:00:00* Test Item Value Reference Range Interpretation Comme nts COLOR (test code = 1501) TEST NOT PERFORMED APPEARANCE (test code = 1502) TEST NOT PERFORMED SPECIFIC GRAVITY (test code = 1503) TEST NOT PERFORMED LEUKOCYTE ESTERASE (test code = 1504) TEST NOT PERFORMED NITRITE (test code = 1505) TEST NOT PERFORMED pH (test code = 1506) TEST NOT PERFORMED PROTEIN (test code = 1507) TEST NOT PERFORMED GLUCOSE (test code = 1508) TEST NOT PERFORMED KETONES (test code = 1509) TEST NOT PERFORMED UROBILINOGEN (test code = 1510) TEST NOT PERFORMED MG/DL BILIRUBIN (test code = 1511) TEST NOT PERFORMED OCCULT BLOOD (test code = 1512) TEST NOT PERFORMED CBC W/AUTO [id number] 00:00:00* Test Item Value Reference Range Interpretation Comme nts WBC (test code = 1001) 8.9 K/UL RBC (test code = 1002) 3.14 M/UL HEMOGLOBIN (test code = 1003) 8.8 G/DL HEMATOCRIT (test code = 1004) 27.8 % MCV (test code = 1005) 88.5 fL MCH (test code = 1006) 28.0 PG MCHC (test code = 1007) 31.7 G/DL RDW (test code = 1038) 12.9 % NEUTROPHILS (test code = 1008) 73.0 % LYMPHOCYTES (test code = 1010) 16.7 % MONOCYTES (test code = 1011) 7.9 % EOSINOPHILS (test code = 1012) 1.5 % BASOPHILS (test code = 1013) 0.6 % IMMATURE GRANYLOCYTES (test code = 1036) 0.3 % NUCLEATED RBCS (test code = 1065) 0.0 /100WBC'S PLATELET COUNT (test code = 1015) 344 K/UL ABSOLUTE NEUTROPHILS (test c ode = 1066) 6.46 K/UL ABSOLUTE LYMPHOCYTES (test c ode = 1067) 1.48 K/UL ABSOLUTE MONOCYTES (test cod e = 1068) 0.70 K/UL ABSOLUTE EOSINOPHILS (test c ode = 1040) 0.13 K/UL ABSOLUTE BASOPHILS (test cod e = 1069) 0.05 K/UL ABS IMMATURE GRANULOCYTES (t est code = 1020) 0.03 K/UL ABS NUCLEATED RBCS (test cod e = 79651) 0.00 K/UL CBC W/AUTO [id number] 00:00:00* Test Item Value Reference Range Interpretation Comme nts WBC (test code = 1001) 8.9 K/UL RBC (test code = 1002) 3.14 M/UL HEMOGLOBIN (test code = 1003) 8.8 G/DL HEMATOCRIT (test code = 1004) 27.8 % MCV (test code = 1005) 88.5 fL MCH (test code = 1006) 28.0 PG MCHC (test code = 1007) 31.7 G/DL RDW (test code = 1038) 12.9 % NEUTROPHILS (test code = 1008) 73.0 % LYMPHOCYTES (test code = 1010) 16.7 % MONOCYTES (test code = 1011) 7.9 % EOSINOPHILS (test code = 1012) 1.5 % BASOPHILS (test code = 1013) 0.6 % IMMATURE GRANYLOCYTES (test code = 1036) 0.3 % NUCLEATED RBCS (test code = 1065) 0.0 /100WBC'S PLATELET COUNT (test code = 1015) 344 K/UL ABSOLUTE NEUTROPHILS (test c ode = 1066) 6.46 K/UL ABSOLUTE LYMPHOCYTES (test c ode = 1067) 1.48 K/UL ABSOLUTE MONOCYTES (test cod e = 1068) 0.70 K/UL ABSOLUTE EOSINOPHILS (test c ode = 1040) 0.13 K/UL ABSOLUTE BASOPHILS (test cod e = 1069) 0.05 K/UL ABS IMMATURE GRANULOCYTES (t est code = 1020) 0.03 K/UL ABS NUCLEATED RBCS (test cod e = 36379) 0.00 K/UL CBC W/AUTO [id number] 00:00:00* Test Item Value Reference Range Interpretation Comme nts WBC (test code = 1001) 8.9 K/UL RBC (test code = 1002) 3.14 M/UL HEMOGLOBIN (test code = 1003) 8.8 G/DL HEMATOCRIT (test code = 1004) 27.8 % MCV (test code = 1005) 88.5 fL MCH (test code = 1006) 28.0 PG MCHC (test code = 1007) 31.7 G/DL RDW (test code = 1038) 12.9 % NEUTROPHILS (test code = 1008) 73.0 % LYMPHOCYTES (test code = 1010) 16.7 % MONOCYTES (test code = 1011) 7.9 % EOSINOPHILS (test code = 1012) 1.5 % BASOPHILS (test code = 1013) 0.6 % IMMATURE GRANYLOCYTES (test code = 1036) 0.3 % NUCLEATED RBCS (test code = 1065) 0.0 /100WBC'S PLATELET COUNT (test code = 1015) 344 K/UL ABSOLUTE NEUTROPHILS (test c ode = 1066) 6.46 K/UL ABSOLUTE LYMPHOCYTES (test c ode = 1067) 1.48 K/UL ABSOLUTE MONOCYTES (test cod e = 1068) 0.70 K/UL ABSOLUTE EOSINOPHILS (test c ode = 1040) 0.13 K/UL ABSOLUTE BASOPHILS (test cod e = 1069) 0.05 K/UL ABS IMMATURE GRANULOCYTES (t est code = 1020) 0.03 K/UL ABS NUCLEATED RBCS (test cod e = 67671) 0.00 K/UL COMPREHENSIVE METABOLIC [id number] 00:00:00* Test Item Value Reference Range Interpretation Comme nts GLUCOSE (test code = 2217) 90 MG/DL BUN (test code = 2208) 40 MG/DL CREATININE (test code = 2214) 1.96 MG/DL eGFR AMER. (test cod e = 08823) 34 ML/MIN/1.73 eGFR NON- AMER. (test code = 02821) 29 ML/MIN/1.73 CALC BUN/CREAT (test code = 2235) 20 RATIO SODIUM (test code = 2231) 141 MEQ/L POTASSIUM (test code = 2228) 6.1 MEQ/L CHLORIDE (test code = 2215) 108 MEQ/L CARBON DIOXIDE (test code = 2206) 19 MEQ/L CALCIUM (test code = 2209) 9.0 MG/DL PROTEIN, TOTAL (test code = 2229) 7.3 G/DL ALBUMIN (test code = 2201) 4.0 G/DL CALC GLOBULIN (test code = 2240) 3.3 G/DL CALC A/G RATIO (test code = 2234) 1.2 RATIO BILIRUBIN, TOTAL (test code = 2207) <0.2 MG/DL ALKALINE PHOSPHATASE (test code = 2204) 67 U/L AST (test code = 2218) 20 U/L ALT (test code = 2219) 12 U/L COMPREHENSIVE METABOLIC [id number] 00:00:00* Test Item Value Reference Range Interpretation Comme nts GLUCOSE (test code = 2217) 90 MG/DL BUN (test code = 2208) 40 MG/DL CREATININE (test code = 2214) 1.96 MG/DL eGFR AMER. (test cod e = 82152) 34 ML/MIN/1.73 eGFR NON- AMER. (test code = 38631) 29 ML/MIN/1.73 CALC BUN/CREAT (test code = 2235) 20 RATIO SODIUM (test code = 2231) 141 MEQ/L POTASSIUM (test code = 2228) 6.1 MEQ/L CHLORIDE (test code = 2215) 108 MEQ/L CARBON DIOXIDE (test code = 2206) 19 MEQ/L CALCIUM (test code = 2209) 9.0 MG/DL PROTEIN, TOTAL (test code = 2229) 7.3 G/DL ALBUMIN (test code = 2201) 4.0 G/DL CALC GLOBULIN (test code = 2240) 3.3 G/DL CALC A/G RATIO (test code = 2234) 1.2 RATIO BILIRUBIN, TOTAL (test code = 2207) <0.2 MG/DL ALKALINE PHOSPHATASE (test code = 2204) 67 U/L AST (test code = 2218) 20 U/L ALT (test code = 2219) 12 U/L [id number] 00:00:00* Test Item Value Reference Range Interpretation Comme nts MAGNESIUM (test code = 2226) 2.1 MG/DL [id number] 00:00:00* Test Item Value Reference Range Interpretation Comme nts MAGNESIUM (test code = 222) 2.1 MG/DL [id number] 00:00:00* Test Item Value Reference Range Interpretation Comme nts MAGNESIUM (test code = 2226) 2.1 MG/DL URIC [id number] 00:00:00* Test Item Value Reference Range Interpretation Comme nts URIC ACID (test code = 2233) 6.7 MG/DL URIC [id number] 00:00:00* Test Item Value Reference Range Interpretation Comme nts URIC ACID (test code = 2233) 6.7 MG/DL [id number] 00:00:00* Test Item Value Reference Range Interpretation Comme nts PHOSPHORUS (test code = 2227) 4.4 MG/DL [id number] 00:00:00* Test Item Value Reference Range Interpretation Comme nts PHOSPHORUS (test code = 222) 4.4 MG/DL IONIZED CALCIUM, [id number] 00:00:00* Test Item Value Reference Range Interpretation Comme nts CALCIUM, IONIZED (test code = 57369) 4.94 MG/DL IONIZED CALCIUM, [id number] 00:00:00* Test Item Value Reference Range Interpretation Comme nts CALCIUM, IONIZED (test code = 66845) 4.94 MG/DL [id number] 00:00:00* Test Item Value Reference Range Interpretation Comm nts FERRITIN (test code = 2075) 87 NG/ML [id number] 00:00:00* Test Item Value Reference Range Interpretation Comm nts FERRITIN (test code = 2075) 87 NG/ML IRON BINDING CAPACITY AND IRON AND % [id number] 00:00:00* Test Item Value Reference [facility]ation [facility], SERUM (test code = 2221) 62 UG/DL UNSATURATED IBC (test code = 32734) 215 UG/DL CALC TOTAL IBC (test code = 2076) 277 UG/DL CALC % IRON SAT (test code = 2078) 22 % IRON BINDING CAPACITY AND IRON AND % [id number] 00:00:00* Test Item Value Reference Range Interpretation Comme nts IRON, SERUM (test code = 2221) 62 UG/DL UNSATURATED IBC (test code = 94292) 215 UG/DL CALC TOTAL IBC (test code = 7) 277 UG/DL CALC % IRON SAT (test code = 2078) 22 % [id number] 00:00:00* Test Item Value Reference Range Interpretation Comme nts TRANSFERRIN (test code = 4936) 219 MG/DL [id number] 00:00:00* Test Item Value Reference Range Interpretation Comme nts TRANSFERRIN (test code = 4936) 219 MG/DL VITAMIN B 12 AND FOLIC [id number] 00:00:00* Test Item Value Reference Range Interpretation Comme nts VITAMIN B-12 (test code = 2840) >2000 PG/ML FOLIC ACID (test code = 2695) 11.7 UG/L VITAMIN B 12 AND FOLIC [id number] 00:00:00* Test Item Value Reference Range Interpretation Comme nts VITAMIN B-12 (test code = 2840) >2000 PG/ML FOLIC ACID (test code = 2695) 11.7 UG/L ARTHRITIS [id number] 00:00:00* Test Item Value Reference Range Interpretation Comme nts RHEUMATOID FACTOR, QUANT (te st code = 3502) <10 IU/ML URIC ACID (test code = 2233) 6.7 MG/DL SEDIMENTATION RATE (test cod e = 1017) 54 MM/HOUR ANTI-NUCLEAR ANTIBODIES (damion t code = 3506) NEGATIVE ARTHRITIS [id number] 00:00:00* Test Item Value Reference Range Interpretation Comme nts RHEUMATOID FACTOR, QUANT (te st code = 3502) <10 IU/ML URIC ACID (test code = 2233) 6.7 MG/DL SEDIMENTATION RATE (test cod e = 1017) 54 MM/HOUR ANTI-NUCLEAR ANTIBODIES (damion t code = 3506) NEGATIVE ARTHRITIS [id number] 00:00:00* Test Item Value Reference Range Interpretation Comme nts RHEUMATOID FACTOR, QUANT (te st code = 3502) <10 IU/ML URIC ACID (test code = 2233) 6.7 MG/DL SEDIMENTATION RATE (test cod e = 1017) 54 MM/HOUR ANTI-NUCLEAR ANTIBODIES (damion t code = 3506) NEGATIVE CBC W/AUTO [id number] 00:00:00* Test Item Value Reference Range Interpretation Comme nts WBC (test code = 1001) 9.0 K/UL RBC (test code = 1002) 2.84 M/UL HEMOGLOBIN (test code = 1003) 8.5 G/DL HEMATOCRIT (test code = 1004) 25.0 % MCV (test code = 1005) 88.0 fL MCH (test code = 1006) 29.9 PG MCHC (test code = 1007) 34.0 G/DL RDW (test code = 1038) 13.5 % NEUTROPHILS (test code = 1008) 74.4 % LYMPHOCYTES (test code = 1010) 15.4 % MONOCYTES (test code = 1011) 7.6 % EOSINOPHILS (test code = 1012) 1.5 % BASOPHILS (test code = 1013) 0.7 % IMMATURE GRANULOCYTES (test code = 1036) 0.4 % NUCLEATED RBCS (test code = 1065) 0.0 /100WBC'S PLATELET COUNT (test code = 1015) 270 K/UL ABSOLUTE NEUTROPHILS (test c ode = 1066) 6.67 K/UL ABSOLUTE LYMPHOCYTES (test c ode = 1067) 1.38 K/UL ABSOLUTE MONOCYTES (test cod e = 1068) 0.68 K/UL ABSOLUTE EOSINOPHILS (test c ode = 1040) 0.13 K/UL ABSOLUTE BASOPHILS (test cod e = 1069) 0.06 K/UL ABS IMMATURE GRANULOCYTES (t est code = 1020) 0.04 K/UL ABS NUCLEATED RBCS (test cod e = 08521) 0.00 K/UL CBC W/AUTO [id number] 00:00:00* Test Item Value Reference Range Interpretation Comme nts WBC (test code = 1001) 9.0 K/UL RBC (test code = 1002) 2.84 M/UL HEMOGLOBIN (test code = 1003) 8.5 G/DL HEMATOCRIT (test code = 1004) 25.0 % MCV (test code = 1005) 88.0 fL MCH (test code = 1006) 29.9 PG MCHC (test code = 1007) 34.0 G/DL RDW (test code = 1038) 13.5 % NEUTROPHILS (test code = 1008) 74.4 % LYMPHOCYTES (test code = 1010) 15.4 % MONOCYTES (test code = 1011) 7.6 % EOSINOPHILS (test code = 1012) 1.5 % BASOPHILS (test code = 1013) 0.7 % IMMATURE GRANULOCYTES (test code = 1036) 0.4 % NUCLEATED RBCS (test code = 1065) 0.0 /100WBC'S PLATELET COUNT (test code = 1015) 270 K/UL ABSOLUTE NEUTROPHILS (test c ode = 1066) 6.67 K/UL ABSOLUTE LYMPHOCYTES (test c ode = 1067) 1.38 K/UL ABSOLUTE MONOCYTES (test cod e = 1068) 0.68 K/UL ABSOLUTE EOSINOPHILS (test c ode = 1040) 0.13 K/UL ABSOLUTE BASOPHILS (test cod e = 1069) 0.06 K/UL ABS IMMATURE GRANULOCYTES (t est code = 1020) 0.04 K/UL ABS NUCLEATED RBCS (test cod e = 08906) 0.00 K/UL CBC W/AUTO [id number] 00:00:00* Test Item Value Reference Range Interpretation Comme nts WBC (test code = 1001) 9.0 K/UL RBC (test code = 1002) 2.84 M/UL HEMOGLOBIN (test code = 1003) 8.5 G/DL HEMATOCRIT (test code = 1004) 25.0 % MCV (test code = 1005) 88.0 fL MCH (test code = 1006) 29.9 PG MCHC (test code = 1007) 34.0 G/DL RDW (test code = 1038) 13.5 % NEUTROPHILS (test code = 1008) 74.4 % LYMPHOCYTES (test code = 1010) 15.4 % MONOCYTES (test code = 1011) 7.6 % EOSINOPHILS (test code = 1012) 1.5 % BASOPHILS (test code = 1013) 0.7 % IMMATURE GRANULOCYTES (test code = 1036) 0.4 % NUCLEATED RBCS (test code = 1065) 0.0 /100WBC'S PLATELET COUNT (test code = 1015) 270 K/UL ABSOLUTE NEUTROPHILS (test c ode = 1066) 6.67 K/UL ABSOLUTE LYMPHOCYTES (test c ode = 1067) 1.38 K/UL ABSOLUTE MONOCYTES (test cod e = 1068) 0.68 K/UL ABSOLUTE EOSINOPHILS (test c ode = 1040) 0.13 K/UL ABSOLUTE BASOPHILS (test cod e = 1069) 0.06 K/UL ABS IMMATURE GRANULOCYTES (t est code = 1020) 0.04 K/UL ABS NUCLEATED RBCS (test cod e = 55605) 0.00 K/UL [id number] 00:00:00* Test Item Value Reference Range Interpretation Comme nts FERRITIN (test code = 2075) 69 NG/ML [id number] 00:00:00* Test Item Value Reference Range Interpretation Comme nts FERRITIN (test code = 5) 69 NG/ML [id number] 00:00:00* Test Item Value Reference Range Interpretation Comme nts TRANSFERRIN (test code = 4936) 220 MG/DL [id number] 00:00:00* Test Item Value Reference Range Interpretation Comme nts TRANSFERRIN (test code = 4936) 220 MG/DL IRON BINDING CAPACITY AND IRON AND % [id number] 00:00:00* Test Item Value Reference Range Interpretation Comme nts IRON, SERUM (test code = 2) 45 UG/DL UNSATURATED IBC (test code = 21982) 210 UG/DL CALC TOTAL IBC (test code = 7) 255 UG/DL CALC % IRON SAT (test code = 9) 18 % IRON BINDING CAPACITY AND IRON AND % [id number] 00:00:00* Test Item Value Reference Range Interpretation Comme nts IRON, SERUM (test code = 2221) 45 UG/DL UNSATURATED IBC (test code = 94697) 210 UG/DL CALC TOTAL IBC (test code = 7) 255 UG/DL CALC % IRON SAT (test code = 9) 18 % BASIC METABOLIC [id number] 00:00:00* Test Item Value Reference Range Interpretation Comme nts GLUCOSE (test code = 2217) 249 MG/DL BUN (test code = 2208) 55 MG/DL CREATININE (test code = 2214) 2.49 MG/DL eGFR AMER. (test cod e = 42477) 25 ML/MIN/1.73 eGFR NON- AMER. (test code = 13065) 22 ML/MIN/1.73 SODIUM (test code = 2231) 140 MEQ/L POTASSIUM (test code = 2228) 4.8 MEQ/L CHLORIDE (test code = 2215) 105 MEQ/L CARBON DIOXIDE (test code = 2206) 20 MEQ/L CALCIUM (test code = 2209) 9.4 MG/DL BASIC METABOLIC [id number] 00:00:00* Test Item Value Reference Range Interpretation Comme nts GLUCOSE (test code = 2217) 249 MG/DL BUN (test code = 2208) 55 MG/DL CREATININE (test code = 2214) 2.49 MG/DL eGFR AMER. (test cod e = 44450) 25 ML/MIN/1.73 eGFR NON- AMER. (test code = 40896) 22 ML/MIN/1.73 SODIUM (test code = 2231) 140 MEQ/L POTASSIUM (test code = 2228) 4.8 MEQ/L CHLORIDE (test code = 2215) 105 MEQ/L CARBON DIOXIDE (test code = 2206) 20 MEQ/L CALCIUM (test code = 2209) 9.4 MG/DL IONIZED CALCIUM, [id number] 00:00:00* Test Item Value Reference Range Interpretation Comme nts CALCIUM, IONIZED (test code = 01062) 5.17 MG/DL IONIZED CALCIUM, [id number] 00:00:00* Test Item Value Reference Range Interpretation Comme nts CALCIUM, IONIZED (test code = 14902) 5.17 MG/DL URIC [id number] 00:00:00* Test Item Value Reference Range Interpretation Comme nts URIC ACID (test code = 2233) 8.6 MG/DL URIC [id number] 00:00:00* Test Item Value Reference Range Interpretation Comme nts URIC ACID (test code = 2233) 8.6 MG/DL [id number] 00:00:00* Test Item Value Reference Range Interpretation Comme nts MAGNESIUM (test code = 2226) 2.1 MG/DL [id number] 00:00:00* Test Item Value Reference Range Interpretation Comme nts MAGNESIUM (test code = 2226) 2.1 MG/DL [id number] 00:00:00* Test Item Value Reference Range Interpretation Comme nts MAGNESIUM (test code = 2226) 2.1 MG/DL [id number] 00:00:00* Test Item Value Reference Range Interpretation Comme nts PHOSPHORUS (test code = 2227) 5.1 MG/DL [id number] 00:00:00* Test Item Value Reference Range Interpretation Comme nts PHOSPHORUS (test code = 2227) 5.1 MG/DL [id number] 00:00:00* Test Item Value Reference Range Interpretation Comme nts TSH, THIRD GENERATION (test code = 2821) 2.370 UIU/ML [id number] 00:00:00* Test Item Value Reference Range Interpretation Comme nts TSH, THIRD GENERATION (test code = 2821) 2.370 UIU/ML [id number] 00:00:00* Test Item Value Reference Range Interpretation Comme nts TSH, THIRD GENERATION (test code = 2821) 2.370 UIU/ML HEMOGLOBIN [id number] 00:00:00* Test Item Value Reference Range Interpretation Comme nts HEMOGLOBIN A1c (test code = 67330) 9.6 % HEMOGLOBIN [id number] 00:00:00* Test Item Value Reference Range Interpretation Comme nts HEMOGLOBIN A1c (test code = 12307) 9.6 % HEMOGLOBIN [id number] 00:00:00* Test Item Value Reference Range Interpretation Comme nts HEMOGLOBIN A1c (test code = 79010) 9.6 % [id number] 00:00:00* Test Item Value Reference Range Interpretation Comme nts ALBUMIN (test code = 2201) 3.9 G/DL [id number] 00:00:00* Test Item Value Reference Range Interpretation Comme nts ALBUMIN (test code = 2201) 3.9 G/DL URINALYSIS W/REFLEX [id number] 00:00:00* Test Item Value Reference Range Interpretation Comme nts COLOR (test code = 1501) YELLOW APPEARANCE (test code = 1502) CLOUDY SPECIFIC GRAVITY (test code = 1503) 1.015 LEUKOCYTE ESTERASE (test cod e = 1504) 2+ NITRITE (test code = 1505) POSITIVE pH (test code = 1506) 5.0 PROTEIN (test code = 1507) 2+ GLUCOSE (test code = 1508) NEGATIVE KETONES (test code = 1509) NEGATIVE UROBILINOGEN (test code = 1510) 0.2 MG/DL BILIRUBIN (test code = 1511) NEGATIVE OCCULT BLOOD (test code = 1512) NEGATIVE WHITE BLOOD CELLS (test code = 1513) >50 /HPF RED BLOOD CELLS (test code = 1514) 0-2 /HPF EPITHELIAL CELLS (test code = 13894) 0-5 /HPF BACTERIA (test code = 1515) 3+ CASTS, HYALINE (test code = 1517) TRACE URINALYSIS W/REFLEX [id number] 00:00:00* Test Item Value Reference Range Interpretation Comme nts COLOR (test code = 1501) YELLOW APPEARANCE (test code = 1502) CLOUDY SPECIFIC GRAVITY (test code = 1503) 1.015 LEUKOCYTE ESTERASE (test cod e = 1504) 2+ NITRITE (test code = 1505) POSITIVE pH (test code = 1506) 5.0 PROTEIN (test code = 1507) 2+ GLUCOSE (test code = 1508) NEGATIVE KETONES (test code = 1509) NEGATIVE UROBILINOGEN (test code = 1510) 0.2 MG/DL BILIRUBIN (test code = 1511) NEGATIVE OCCULT BLOOD (test code = 1512) NEGATIVE WHITE BLOOD CELLS (test code = 1513) >50 /HPF RED BLOOD CELLS (test code = 1514) 0-2 /HPF EPITHELIAL CELLS (test code = 08009) 0-5 /HPF BACTERIA (test code = 1515) 3+ CASTS, HYALINE (test code = 1517) TRACE MICROALBUMIN/CREATININE, RANDOM AND [id number] 00:00:00* Test Item Value Reference Range Interpretation Comme nts CREATININE, URINE, CONC. (te st code = 207) 103.2 MG/DL ALBUMIN, URINE, RANDOM (test code = 27406) 106.7 MG/DL CALC ALBUMIN/CREAT, RND (damion t code = 65772) 1034 MG/G MICROALBUMIN/CREATININE, RANDOM AND [id number] 00:00:00* Test Item Value Reference Range Interpretation Comme nts CREATININE, URINE, CONC. (te st code = 207) 103.2 MG/DL ALBUMIN, URINE, RANDOM (test code = 21615) 106.7 MG/DL CALC ALBUMIN/CREAT, RND (damion t code = 82856) 1034 MG/G LIPID [id number] 00:00:00* Test Item Value Reference Range Interpretation Comme nts CHOLESTEROL (test code = 2210) 125 MG/DL TRIGLYCERIDES (test code = 2232) 68 MG/DL HDL CHOLESTEROL (test code = 2220) 60 MG/DL CALC LDL CHOL (test code = 2237) 51 MG/DL RISK RATIO LDL/HDL (test cod e = 2238) 0.85 RATIO LIPID [id number] 00:00:00* Test Item Value Reference Range Interpretation Comme nts CHOLESTEROL (test code = 2210) 125 MG/DL TRIGLYCERIDES (test code = 2232) 68 MG/DL HDL CHOLESTEROL (test code = 2220) 60 MG/DL CALC LDL CHOL (test code = 2237) 51 MG/DL RISK RATIO LDL/HDL (test cod e = 2238) 0.85 RATIO COMPREHENSIVE METABOLIC [id number] 00:00:00* Test Item Value Reference Range Interpretation Comme nts GLUCOSE (test code = 2217) 123 MG/DL BUN (test code = 2208) 38 MG/DL CREATININE (test code = 2214) 2.11 MG/DL eGFR AMER. (test cod e = 76467) 31 ML/MIN/1.73 eGFR NON- AMER. (test code = 25780) 27 ML/MIN/1.73 CALC BUN/CREAT (test code = 2235) 18 RATIO SODIUM (test code = 2231) 139 MEQ/L POTASSIUM (test code = 2228) 6.1 MEQ/L CHLORIDE (test code = 2215) 109 MEQ/L CARBON DIOXIDE (test code = 2206) 18 MEQ/L CALCIUM (test code = 2209) 9.1 MG/DL PROTEIN, TOTAL (test code = 2229) 6.6 G/DL ALBUMIN (test code = 2201) 4.0 G/DL CALC GLOBULIN (test code = 2240) 2.6 G/DL CALC A/G RATIO (test code = 2234) 1.5 RATIO BILIRUBIN, TOTAL (test code = 2207) <0.2 MG/DL ALKALINE PHOSPHATASE (test code = 2204) 92 U/L AST (test code = 2218) 11 U/L ALT (test code = 2219) 10 U/L COMPREHENSIVE METABOLIC [id number] 00:00:00* Test Item Value Reference Range Interpretation Comme nts GLUCOSE (test code = 2217) 123 MG/DL BUN (test code = 2208) 38 MG/DL CREATININE (test code = 2214) 2.11 MG/DL eGFR AMER. (test cod e = 38964) 31 ML/MIN/1.73 eGFR NON- AMER. (test code = 29684) 27 ML/MIN/1.73 CALC BUN/CREAT (test code = 2235) 18 RATIO SODIUM (test code = 2231) 139 MEQ/L POTASSIUM (test code = 2228) 6.1 MEQ/L CHLORIDE (test code = 2215) 109 MEQ/L CARBON DIOXIDE (test code = 2206) 18 MEQ/L CALCIUM (test code = 2209) 9.1 MG/DL PROTEIN, TOTAL (test code = 2229) 6.6 G/DL ALBUMIN (test code = 2201) 4.0 G/DL CALC GLOBULIN (test code = 2240) 2.6 G/DL CALC A/G RATIO (test code = 4) 1.5 RATIO BILIRUBIN, TOTAL (test code = 2206) <0.2 MG/DL ALKALINE PHOSPHATASE (test code = 2203) 92 U/L AST (test code = 8) 11 U/L ALT (test code = 2218) 10 U/L HEMOGLOBIN [id number] 00:00:00* Test Item Value Reference Range Interpretation Comme nts HEMOGLOBIN A1c (test code = 00164) 8.0 % HEMOGLOBIN [id number] 00:00:00* Test Item Value Reference Range Interpretation Comme nts HEMOGLOBIN A1c (test code = 92365) 8.0 % HEMOGLOBIN [id number] 00:00:00* Test Item Value Reference Range Interpretation Comme nts HEMOGLOBIN A1c (test code = 09617) 8.0 % TSH, THIRD GENERATION [ADDED]2020-09-23 00:00:00* Test Item Value Reference Range Interpretation Comme nts TSH, THIRD GENERATION (test code = 2821) 3.580 UIU/ML TSH, THIRD GENERATION [ADDED]2020-09-23 00:00:00* Test Item Value Reference Range Interpretation Comme nts TSH, THIRD GENERATION (test code = 2821) 3.580 UIU/ML TSH, THIRD GENERATION [ADDED]2020-09-23 00:00:00* Test Item Value Reference Range Interpretation Comme nts TSH, THIRD GENERATION (test code = 2821) 3.580 UIU/ML NOTE: [ADDED]2020-09-23 00:00:00* Test Item Value Reference Range Interpretation Comme nts NOTE: (test code = 998) (NOTE) MICROALBUMIN/CREATININE, RANDOM AND [id number] 00:00:00* Test Item Value Reference Range Interpretation Comme nts CREATININE, URINE, CONC. (te st code = 2072) 69.1 MG/DL ALBUMIN, URINE, RANDOM (test code = 44111) 61.0 MG/DL CALC ALBUMIN/CREAT, RND (damion t code = 63946) 883 MG/G MICROALBUMIN/CREATININE, RANDOM AND [id number] 00:00:00* Test Item Value Reference Range Interpretation Comme nts CREATININE, URINE, CONC. (te st code = 2072) 69.1 MG/DL ALBUMIN, URINE, RANDOM (test code = 21324) 61.0 MG/DL CALC ALBUMIN/CREAT, RND (damion t code = 41541) 883 MG/G LIPID [id number] 00:00:00* Test Item Value Reference Range Interpretation Comme nts CHOLESTEROL (test code = 2210) 175 MG/DL TRIGLYCERIDES (test code = 2232) 72 MG/DL HDL CHOLESTEROL (test code = 2220) 66 MG/DL CALC LDL CHOL (test code = 2237) 93 MG/DL RISK RATIO LDL/HDL (test cod e = 2238) 1.41 RATIO LIPID [id number] 00:00:00* Test Item Value Reference Range Interpretation Comme nts CHOLESTEROL (test code = 2210) 175 MG/DL TRIGLYCERIDES (test code = 2232) 72 MG/DL HDL CHOLESTEROL (test code = 2220) 66 MG/DL CALC LDL CHOL (test code = 2237) 93 MG/DL RISK RATIO LDL/HDL (test cod e = 2238) 1.41 RATIO COMPREHENSIVE METABOLIC [id number] 00:00:00* Test Item Value Reference Range Interpretation Comme nts GLUCOSE (test code = 2217) 79 MG/DL BUN (test code = 2208) 43 MG/DL CREATININE (test code = 2214) 2.03 MG/DL eGFR AMER. (test cod e = 60549) 33 ML/MIN/1.73 eGFR NON- AMER. (test code = 49935) 28 ML/MIN/1.73 CALC BUN/CREAT (test code = 2235) 21 RATIO SODIUM (test code = 2231) 140 MEQ/L POTASSIUM (test code = 2228) 5.7 MEQ/L CHLORIDE (test code = 2215) 112 MEQ/L CARBON DIOXIDE (test code = 2206) 18 MEQ/L CALCIUM (test code = 2209) 9.0 MG/DL PROTEIN, TOTAL (test code = 2229) 6.9 G/DL ALBUMIN (test code = 2201) 3.9 G/DL CALC GLOBULIN (test code = 2240) 3.0 G/DL CALC A/G RATIO (test code = 2234) 1.3 RATIO BILIRUBIN, TOTAL (test code = 2207) <0.2 MG/DL ALKALINE PHOSPHATASE (test code = 2204) 74 U/L AST (test code = 2218) 14 U/L ALT (test code = 2219) 12 U/L COMPREHENSIVE METABOLIC [id number] 00:00:00* Test Item Value Reference Range Interpretation Comme nts GLUCOSE (test code = 2217) 79 MG/DL BUN (test code = 2208) 43 MG/DL CREATININE (test code = 2214) 2.03 MG/DL eGFR AMER. (test cod e = 81256) 33 ML/MIN/1.73 eGFR NON- AMER. (test code = 77087) 28 ML/MIN/1.73 CALC BUN/CREAT (test code = 2235) 21 RATIO SODIUM (test code = 2231) 140 MEQ/L POTASSIUM (test code = 2228) 5.7 MEQ/L CHLORIDE (test code = 2215) 112 MEQ/L CARBON DIOXIDE (test code = 2206) 18 MEQ/L CALCIUM (test code = 2209) 9.0 MG/DL PROTEIN, TOTAL (test code = 2229) 6.9 G/DL ALBUMIN (test code = 2201) 3.9 G/DL CALC GLOBULIN (test code = 2240) 3.0 G/DL CALC A/G RATIO (test code = 2234) 1.3 RATIO BILIRUBIN, TOTAL (test code = 2207) <0.2 MG/DL ALKALINE PHOSPHATASE (test code = 2204) 74 U/L AST (test code = 2218) 14 U/L ALT (test code = 2219) 12 U/L HEMOGLOBIN [id number] 00:00:00* Test Item Value Reference Range Interpretation Comme nts HEMOGLOBIN A1c (test code = 26963) 7.9 % HEMOGLOBIN [id number] 00:00:00* Test Item Value Reference Range Interpretation Comme nts HEMOGLOBIN A1c (test code = 70212) 7.9 % HEMOGLOBIN [id number] 00:00:00* Test Item Value Reference Range Interpretation Comme nts HEMOGLOBIN A1c (test code = 52844) 7.9 % SARS-CoV-2 (COVID-19) by RT-PCR (HIGH RISK)2020-03-28 00:00:00* Test Item Value Reference Range Interpretation Comme nts SARS-CoV-2 INTERPRETATION (t est code = 47168) NEGATIVE SOURCE (test code = 07803) NOT SPECIFIED SARS-CoV-2 (COVID-19) by RT-PCR (HIGH RISK)2020-03-28 00:00:00* Test Item Value Reference Range Interpretation Comme nts SARS-CoV-2 INTERPRETATION (t est code = 72612) NEGATIVE SOURCE (test code = 79340) NOT SPECIFIED SARS-CoV-2 (COVID-19) by RT-PCR (HIGH RISK)2020-02-02 00:00:00* Test Item Value Reference Range Interpretation Comme nts SARS-CoV-2 INTERPRETATION (t est code = 97098) NEGATIVE SOURCE (test code = 40083) NOT SPECIFIED SARS-CoV-2 (COVID-19) by RT-PCR (HIGH RISK)2020-02-02 00:00:00* Test Item Value Reference Range Interpretation Comme nts SARS-CoV-2 INTERPRETATION (t est code = 17902) NEGATIVE SOURCE (test code = 00938) NOT SPECIFIED VITAMIN D, 25 [id number] 00:00:00* Test Item Value Reference Range Interpretation Comme nts VITAMIN D, 25 OH (test code = 4958) 25 NG/ML VITAMIN D, 25 [id number] 00:00:00* Test Item Value Reference Range Interpretation Comme nts VITAMIN D, 25 OH (test code = 4958) 25 NG/ML COMPREHENSIVE METABOLIC [id number] 00:00:00* Test Item Value Reference Range Interpretation Comme nts GLUCOSE (test code = 2217) 158 MG/DL BUN (test code = 2208) 30 MG/DL CREATININE (test code = 2214) 1.58 MG/DL eGFR AMER. (test cod e = 44391) 44 ML/MIN/1.73 eGFR NON- AMER. (test code = 27796) 38 ML/MIN/1.73 CALC BUN/CREAT (test code = 2235) 19 RATIO SODIUM (test code = 2231) 140 MEQ/L POTASSIUM (test code = 2228) 5.3 MEQ/L CHLORIDE (test code = 2215) 109 MEQ/L CARBON DIOXIDE (test code = 2206) 18 MEQ/L CALCIUM (test code = 2209) 8.8 MG/DL PROTEIN, TOTAL (test code = 2229) 6.3 G/DL ALBUMIN (test code = 2201) 3.6 G/DL CALC GLOBULIN (test code = 2240) 2.7 G/DL CALC A/G RATIO (test code = 2234) 1.3 RATIO BILIRUBIN, TOTAL (test code = 2207) <0.2 MG/DL ALKALINE PHOSPHATASE (test code = 2204) 70 U/L AST (test code = 2218) 13 U/L ALT (test code = 2219) 13 U/L COMPREHENSIVE METABOLIC [id number] 00:00:00* Test Item Value Reference Range Interpretation Comme nts GLUCOSE (test code = 2217) 158 MG/DL BUN (test code = 2208) 30 MG/DL CREATININE (test code = 2214) 1.58 MG/DL eGFR AMER. (test cod e = 37597) 44 ML/MIN/1.73 eGFR NON- AMER. (test code = 92701) 38 ML/MIN/1.73 CALC BUN/CREAT (test code = 2235) 19 RATIO SODIUM (test code = 2231) 140 MEQ/L POTASSIUM (test code = 2228) 5.3 MEQ/L CHLORIDE (test code = 2215) 109 MEQ/L CARBON DIOXIDE (test code = 2206) 18 MEQ/L CALCIUM (test code = 2209) 8.8 MG/DL PROTEIN, TOTAL (test code = 2229) 6.3 G/DL ALBUMIN (test code = 2201) 3.6 G/DL CALC GLOBULIN (test code = 2240) 2.7 G/DL CALC A/G RATIO (test code = 2234) 1.3 RATIO BILIRUBIN, TOTAL (test code = 2207) <0.2 MG/DL ALKALINE PHOSPHATASE (test code = 2204) 70 U/L AST (test code = 2218) 13 U/L ALT (test code = 2219) 13 U/L HEMOGLOBIN [id number] 00:00:00* Test Item Value Reference Range Interpretation Comme nts HEMOGLOBIN A1c (test code = 34724) 9.2 % HEMOGLOBIN [id number] 00:00:00* Test Item Value Reference Range Interpretation Comme nts HEMOGLOBIN A1c (test code = 75407) 9.2 % HEMOGLOBIN [id number] 00:00:00* Test Item Value Reference Range Interpretation Comme nts HEMOGLOBIN A1c (test code = 55827) 9.2 % LIPID [id number] 00:00:00* Test Item Value Reference Range Interpretation Comme nts CHOLESTEROL (test code = 2210) 222 MG/DL TRIGLYCERIDES (test code = 2232) 143 MG/DL HDL CHOLESTEROL (test code = 2220) 59 MG/DL CALC LDL CHOL (test code = 2237) 136 MG/DL RISK RATIO LDL/HDL (test cod e = 2238) 2.31 RATIO LIPID [id number] 00:00:00* Test Item Value Reference Range Interpretation Comme nts CHOLESTEROL (test code = 2210) 222 MG/DL TRIGLYCERIDES (test code = 2232) 143 MG/DL HDL CHOLESTEROL (test code = 2220) 59 MG/DL CALC LDL CHOL (test code = 2237) 136 MG/DL RISK RATIO LDL/HDL (test cod e = 2238) 2.31 RATIO CBC W/AUTO [id number] 00:00:00* Test Item Value Reference Range Interpretation Comme nts WBC (test code = 1001) 8.1 K/UL RBC (test code = 1002) 3.27 M/UL HEMOGLOBIN (test code = 1003) 9.4 G/DL HEMATOCRIT (test code = 1004) 27.9 % MCV (test code = 1005) 85.3 fL MCH (test code = 1006) 28.7 PG MCHC (test code = 1007) 33.7 G/DL RDW (test code = 1038) 13.0 % NEUTROPHILS (test code = 1008) 63.8 % LYMPHOCYTES (test code = 1010) 26.0 % MONOCYTES (test code = 1011) 7.8 % EOSINOPHILS (test code = 1012) 1.8 % BASOPHILS (test code = 1013) 0.6 % PLATELET COUNT (test code = 1015) 307 K/UL CBC W/AUTO [id number] 00:00:00* Test Item Value Reference Range Interpretation Comme nts WBC (test code = 1001) 8.1 K/UL RBC (test code = 1002) 3.27 M/UL HEMOGLOBIN (test code = 1003) 9.4 G/DL HEMATOCRIT (test code = 1004) 27.9 % MCV (test code = 1005) 85.3 fL MCH (test code = 1006) 28.7 PG MCHC (test code = 1007) 33.7 G/DL RDW (test code = 1038) 13.0 % NEUTROPHILS (test code = 1008) 63.8 % LYMPHOCYTES (test code = 1010) 26.0 % MONOCYTES (test code = 1011) 7.8 % EOSINOPHILS (test code = 1012) 1.8 % BASOPHILS (test code = 1013) 0.6 % PLATELET COUNT (test code = 1015) 307 K/UL CBC W/AUTO [id number] 00:00:00* Test Item Value Reference Range Interpretation Comme nts WBC (test code = 1001) 8.1 K/UL RBC (test code = 1002) 3.27 M/UL HEMOGLOBIN (test code = 1003) 9.4 G/DL HEMATOCRIT (test code = 1004) 27.9 % MCV (test code = 1005) 85.3 fL MCH (test code = 1006) 28.7 PG MCHC (test code = 1007) 33.7 G/DL RDW (test code = 1038) 13.0 % NEUTROPHILS (test code = 1008) 63.8 % LYMPHOCYTES (test code = 1010) 26.0 % MONOCYTES (test code = 1011) 7.8 % EOSINOPHILS (test code = 1012) 1.8 % BASOPHILS (test code = 1013) 0.6 % PLATELET COUNT (test code = 1015) 307 K/UL LIPID [id number] 00:00:00* Test Item Value Reference Range Interpretation Comme nts CHOLESTEROL (test code = 2210) 245 MG/DL TRIGLYCERIDES (test code = 2232) 171 MG/DL HDL CHOLESTEROL (test code = 2220) 59 MG/DL CALC LDL CHOL (test code = 2237) 152 MG/DL RISK RATIO LDL/HDL (test cod e = 2238) 2.57 RATIO LIPID [id number] 00:00:00* Test Item Value Reference Range Interpretation Comme nts CHOLESTEROL (test code = 2210) 245 MG/DL TRIGLYCERIDES (test code = 2232) 171 MG/DL HDL CHOLESTEROL (test code = 2220) 59 MG/DL CALC LDL CHOL (test code = 2237) 152 MG/DL RISK RATIO LDL/HDL (test cod e = 2238) 2.57 RATIO HEMOGLOBIN [id number] 00:00:00* Test Item Value Reference Range Interpretation Comme nts HEMOGLOBIN A1c (test code = 42766) 9.1 % HEMOGLOBIN [id number] 00:00:00* Test Item Value Reference Range Interpretation Comme nts HEMOGLOBIN A1c (test code = 49818) 9.1 % HEMOGLOBIN [id number] 00:00:00* Test Item Value Reference Range Interpretation Comme nts HEMOGLOBIN A1c (test code = 58751) 9.1 % COMPREHENSIVE METABOLIC [id number] 00:00:00* Test Item Value Reference Range Interpretation Comme nts GLUCOSE (test code = 2217) 136 MG/DL BUN (test code = 2208) 29 MG/DL CREATININE (test code = 2214) 1.37 MG/DL eGFR AMER. (test cod e = 15243) 53 ML/MIN/1.73 eGFR NON- AMER. (test code = 43764) 46 ML/MIN/1.73 CALC BUN/CREAT (test code = 2235) 21 RATIO SODIUM (test code = 2231) 141 MEQ/L POTASSIUM (test code = 2228) 5.1 MEQ/L CHLORIDE (test code = 2215) 107 MEQ/L CARBON DIOXIDE (test code = 2206) 21 MEQ/L CALCIUM (test code = 2209) 9.2 MG/DL PROTEIN, TOTAL (test code = 2229) 6.4 G/DL ALBUMIN (test code = 2201) 3.6 G/DL CALC GLOBULIN (test code = 2240) 2.8 G/DL CALC A/G RATIO (test code = 2234) 1.3 RATIO BILIRUBIN, TOTAL (test code = 2207) <0.2 MG/DL ALKALINE PHOSPHATASE (test code = 2204) 74 U/L AST (test code = 2218) 15 U/L ALT (test code = 2219) 14 U/L COMPREHENSIVE METABOLIC [id number] 00:00:00* Test Item Value Reference Range Interpretation Comme nts GLUCOSE (test code = 2217) 136 MG/DL BUN (test code = 2208) 29 MG/DL CREATININE (test code = 2214) 1.37 MG/DL eGFR AMER. (test cod e = 66019) 53 ML/MIN/1.73 eGFR NON- AMER. (test code = 35667) 46 ML/MIN/1.73 CALC BUN/CREAT (test code = 2235) 21 RATIO SODIUM (test code = 2231) 141 MEQ/L POTASSIUM (test code = 2228) 5.1 MEQ/L CHLORIDE (test code = 2215) 107 MEQ/L CARBON DIOXIDE (test code = 2206) 21 MEQ/L CALCIUM (test code = 2209) 9.2 MG/DL PROTEIN, TOTAL (test code = 2229) 6.4 G/DL ALBUMIN (test code = 2201) 3.6 G/DL CALC GLOBULIN (test code = 2240) 2.8 G/DL CALC A/G RATIO (test code = 2234) 1.3 RATIO BILIRUBIN, TOTAL (test code = 2207) <0.2 MG/DL ALKALINE PHOSPHATASE (test code = 2204) 74 U/L AST (test code = 2218) 15 U/L ALT (test code = 2219) 14 U/L VITAMIN D, 25 [id number] 00:00:00* Test Item Value Reference Range Interpretation Comme [facility] VITAMIN D, 25 OH (test code = 4958) 9 NG/ML VITAMIN D, 25 [id number] 00:00:00* Test Item Value Reference Range Interpretation Comme nts VITAMIN D, 25 OH (test code = 4958) 9 NG/ML 3D SCR CLARK BILAT W/CAD3D SCR CLARK BILAT W/CAD Notes Date/Time Note Provider Source 2024-04-08 09:15:53 Discussed echo results with pt per physician review. Pt verbalized understanding. Kirstie Walker RN [facility] 2024-04-07 16:49:11 No answer [facility] 2024-04-07 16:38:39 Shelley Woods is a 53 year old female Pt is returning call to clinic asking for a call back to discuss her Echo results. Pt was informed that a letter was sent out with the results from test, however pt is requesting a call back to discuss Please advise Geni Frey [facility] 2024-04-07 14:39:22 No answer. Called to review echo results with pt. Will send letter to patient since she is hard to reach by phone. Kirstie Walker RN [facility] 2024-04-07 14:06:31 Shelley Woods is a 53 year old female Pt is calling asking what her results are from her echo test. Please advise. Tessa Chavarria [facility] 2024-03-13 10:37:36 Images from the original note were not included. Attempted to contact patient to discuss test results no answer unable to leave a voice message , will try to contact patient again. Gabrielle Bustillo MD P Cardiology Nurse Echo showed ejection fraction 40 to 45% which is the same as previous. Continue current medications. Elena Schaeffer MA [facility] 2024-03-11 14:08:43 Pt seen on 03/11/24. Sneha Heller [facility] 2024-03-10 16:28:53 Shelley Woods is a 53 year old female calling to reschedule echo depending on how far out next available would be. Pt called with training intern, call disconnected before confirming if pt wanted to cancel. Appt still scheduled for tomorrow. Please call [phone] (home) Roseann Schaeffer [facility] 2024-01-07 11:33:07 1st time getting notify of refill need. Must call office or have pharmacy fax need over. [facility] 2024-01-07 10:26:04 Copied from [facility] #[id number]. Topic: Clinical - Medical Advice >> January 07, 2024 10:24 AM Patient Yarder Boss wrote: Patient calling needing refill of hydrALAZINE 100 mg tablet sent into her pharmacy. She has not taken medication x 2 weeks.Please advise T [facility] 2023-03-20 16:11:01 Formatting of this n ote might be different from the original. Images from the original note were not included. Called patient for results, patient verbalized understanding with no further questions. Gabrielle Bustillo MD P Cardiology Nurse ECHO EF 40-45%, no changes. Continue current meds Libby Franco MA [facility]
[2024-04-13] MEDS ORDERED: ACETAMINOPHEN 500 MG TAB ONE (13:26)
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
[2024-04-13 16:22] VITALS: BP 161/72; TEMP 97.8; O2SAT 100
== END 2024-04-13 16:16 | disposition home or self-care (01) ==
LOC: ER 12:20
DX: S80.12XA Contusion of left lower leg, initial encounter (principal); M79.605 Pain in left leg; M79.604 Pain in right leg; V49.40XA Driver injured in collision with unspecified motor vehicles in traffic accident, initial encounter
CPT/HCPCS: 99283